=== PATIENT | male | born 1950 | race Caucasian/White ===

== ENCOUNTER 2017-01-25 14:48 | Emergency (ER) | payer MEDICARE, OTHER ==
--- NOTE | 2017-01-25 15:17 | EDM.PDOC ---
ED HPI HEADACHE COMPLAINT - General Chief Complaint: Headache Stated Complaint: HEADACHE Time Seen by Provider: 01/25/17 15:06 - History of Present Illness INITIAL COMMENTS - FREE TEXT/NARRATIVE: 66-year-old male presents emergency room with worsening headaches and aches and pains. Patient isn't certain when this actually started but it's probably been going on for couple of weeks. He has pain around his pelvis and into his thighs and in his lower back it seems to be getting worse. He has more noticeable pain around his shoulders and neck. As this would is worsening he is getting pain that comes up the back of his neck over the top of his head causing headaches. The headaches is what brings him in today. Patient does have frequent headaches he uses Fioricet at home but this is not working but these headaches. History for hypertension hyperlipidemia dyspepsia doubt and renal insufficiency - Related Data Allergies/ADRs: Allergies Allergy/AdvReac Type Severity Reaction Status Date / Time amlodipine besylate Allergy Anaphylactic Verified 01/25/17 15:03 [From Norvasc] Shock propoxyphene napsylate Allergy Rash Verified 01/25/17 15:03 [From Darvocet-N 100] acetaminophen [From Percocet] AdvReac Hallucinati Verified 01/25/17 15:03 ons cephalexin [Cephalexin] AdvReac Vomiting Verified 01/25/17 15:03 morphine AdvReac Nausea Verified 01/25/17 15:03 oxycodone [From Percocet] AdvReac Hallucinati Verified 01/25/17 15:03 ons Home Meds: Home Meds Allopurinol [Zyloprim] 150 mg PO BID 02/04/14 [History] Diazepam [Valium] 5 mg PO Q8H 02/04/14 [History] Famotidine [Pepcid] 20 mg PO BID PRN 02/04/14 [History] Omeprazole [Prilosec] 20 mg PO BID 02/04/14 [History] Potassium Chloride [Klor-Con 10] 20 meq PO DAILY 02/04/14 [History] Rosuvastatin [Crestor] 20 mg PO DAILY 02/04/14 [History] Valsartan [Diovan] 80 mg PO DAILY 02/04/14 [History] Calcium Carbonate [Tums] 4 tab PO DAILY 05/17/14 [History] Cholecalciferol (Vitamin D3) [Vitamin D3] 4,000 unit PO DAILY 09/01/14 [History] Pregabalin [Lyrica] 150 mg PO BID 09/06/14 [History] Methylcellulose [Citrucel] 1,000 mg PO BID 12/29/14 [History] Acetaminophen [Tylenol] 500 mg PO Q4H PRN 03/14/16 [History] Aspirin [Halfprin] 81 mg PO DAILY 03/14/16 [History] Hydrocortisone [Cortef] 5 mg PO PCDINNER 03/14/16 [History] Hydrocortisone [Cortef] 10 mg PO PCBREAKFAST 03/14/16 [History] PARoxetine HCl [Paxil] 10 mg PO DAILY 03/14/16 [History] Simethicone 125 mg PO BID 03/14/16 [History] Acetaminophen/Butalbital/Caff [Fioricet 325-50-40 MG] 1 tab PO Q6H 03/28/16 [ History] B1/B2/Niacin/B12/Protease [B-Complex with B-12 Tablet] 1 each PO DAILY 03/28/16 [History] fentaNYL [Duragesic] 1 patch TD Q48H 03/28/16 [History] traMADol [Ultram] 50 mg PO Q6H PRN 03/28/16 [History] Ferrous Sulfate 325 mg PO DAILY 09/10/16 [History] B2/Vit A,C & E/Lut/Zeaxanth/Mn [Icaps] 1 tab PO BID 01/25/17 [History] Butalbital/Aspirin/Caffeine [Fiorinal 50-325-40 MG] 1 tab PO Q6H 01/25/17 [ History] Lactobacillus Acidophilus [Acidophilus Lactobacilli] 1 tab PO DAILY 01/25/17 [ History] Past Medical History HEENT History: Reports: Hard of hearing, Impaired vision Other HEENT History: wears glasses, dentures Cardiovascular History: Reports: Arrhythmia, High cholesterol, Hypertension, Pacemaker, Other (see below) Other Cardiovascular History: sick sinus syndrome Respiratory History: Reports: SOB Gastrointestinal History: Reports: Bowel obstruction, Other (see below) Other Gastrointestinal History: chronic abd pain Other Genitourinary History: Urinary frequency Musculoskeletal History: Reports: Back pain, chronic, Fibromyalgia, Osteoarthritis, Other (see below) Other Musculoskeletal History: carpal tunnel syndrome bilaterally Neurological History: Reports: Headaches, chronic, Neuropathy, peripheral, Other (see below) Other Neuro History: dura-fluid leak with patch Psychiatric History: Reports: Anxiety, Depression, Other (see below) Other Psychiatric History: chronic pain syndrome, chronic fatigue Endocrine/Metabolic History: Reports: Other (see below) Other Endocrine/Metabolic History: adrenal insufficiancy Other Hematologic History: hypokalemia - Past Surgical History HEENT Surgical History: Reports: Naso-sinus surgery, Tonsillectomy Cardiovascular Surgical History: Reports: Pacer GI Surgical History: Reports: Colon, Colonoscopy, Colostomy, EGD, Other (see below) Other GI Surgeries/Procedures: colon resection w/ colostomy and reversal Endocrine Surgical History: Reports: Other (see below) Other Endocrine Surgeries/Procedures: nonfunctioning adrenal gland Neurological Surgical History: Reports: Vertebroplasty Other Neurological Surgeries/Procedures: Nerve block Musculoskeletal Surgical History: Reports: Carpal tunnel, Hip replacement, Other (see below) Other Musculoskeletal Surgeries/Procedures:: 14 back surgeries, ruptured discs, right total hip, right total knee, carpal tunnel procedures, trigger finger procedure Dermatological Surgical History: Reports: Skin graft Social & Family History - Family History Other HEENT Family History: Pt states daughter is blind in one eye. Cardiac: Reports: CAD, [place] Other Cardiac Family History: Pt states Father @ 53y/o. Oncologic: Reports: Bladder Other Oncologic Family History: Pt states daughter has rare bladder CA and also lost her site in one eye from it. - Tobacco Use Smoking Status *Q: Never Smoker Years of Tobacco use: 2 Used Tobacco, but Quit: No Month Tobacco Last Used: 44 yrs ago Second Hand Smoke Exposure: No - Caffeine Use Caffeine Use: Reports: None - Alcohol Use Days Per Week of Alcohol Use: 0 Number of Drinks Per Day: 0 Total Drinks Per Week: 0 - Recreational Drug Use Recreational Drug Use: No Drug Use in Last 12 Months: No - Living Situation & Occupation Living situation: Reports: with spouse ED ROS GENERAL - Review of Systems Review Of Systems: See Below Constitutional: Reports: weakness. Denies: fever, chills HEENT: Reports: Eye pain (He is photophobic with these headaches) Respiratory: Reports: No Symptoms Cardiovascular: Reports: No symptoms GI/Abdominal: Reports: No symptoms : Reports: no symptoms Musculoskeletal: Reports: shoulder pain, arm pain, leg pain Skin: Reports: no symptoms Neurological: Reports: Headache, Difficulty Walking (Early in the morning and when he's been resting the first few steps are difficult). Denies: Numbness, Paresthesia, Seizure, Syncope - Physical Exam Exam: See Below Exam Limited By: No limitations General Appearance: alert, no apparent distress Eye Exam: bilateral eye: EOMI, normal inspection, PERRL Ears: normal external exam, normal canal, hearing grossly normal, normal TMs Nose: normal inspection, normal mucosa, no blood Throat/Mouth: Normal inspection, Normal lips, Normal gums, Normal oropharynx, Normal voice, No airway compromise Head Exam: atraumatic, normocephalic Neck: lymphadenopathy (L), lymphadenopathy (R), other (He has paraspinous muscle tightness that extends over the top of the scalp this seems to be associated with his headaches this does not favor one side or the other). No: tender midline Respiratory/Chest: no respiratory distress, lungs clear, normal breath sounds Cardiovascular: regular rate, rhythm, no edema, no murmur GI/Abdominal: normal bowel sounds, soft, non tender Neuro Exam (Abbreviated): alert, oriented, other (Cranial nerves II through XII grossly intact all muscle groups the upper extremities recall appropriate bilaterally. Moving his upper extremities is limited limited by his recent carpal tunnel surgery and his neck and shoulder discomfort). No: inattentive, confused Back Exam: normal inspection, muscle spasm (Noticed mostly in the upper back. He has some vague discomfort in the lumbar musculature). No: vertebral tenderness Extremities: other (He has pain and is pop proximal thighs upper arms including the shoulders) Course - Vital Signs Last Recorded V/S: Last Vital Signs Temp 37.1 C 01/25/17 14:59 Pulse 74 01/25/17 14:59 Resp 18 01/25/17 14:59 BP 123/76 01/25/17 14:59 Pulse Ox 97 01/25/17 14:59 - Orders/Labs/Meds Orders: Active Orders 24 hr Category Date Time Status Hydrocortisone [Cortef] Med 01/26/17 18:38 Once 15 mg PO ONETIME ONE Sodium Chloride 0.9% [Normal Saline] 1,000 ml Med 01/25/17 18:30 Active IV ASDIRECTED Medication Orders Hydrocortisone (Cortef) 15 mg PO ONETIME ONE Stop: 01/26/17 18:39 Sodium Chloride (Normal Saline) 1,000 mls @ 150 mls/hr IV ASDIRECTED [facility] Labs: Laboratory Tests 01/25/17 01/25/17 01/25/17 Range/Units 16:40 17:15 17:15 WBC 10.84 H (4.23-9.07) K/mm3 RBC 4.76 (4.63-6.08) M/mm3 Hgb 14.3 (13.7-17.5) gm/L Hct 40.4 (40.1-51.0) % MCV 84.9 (79.0-92.2) fl MCH 30.0 (25.7-32.2) pg MCHC 35.4 (32.2-35.5) g/dl RDW Std Deviation 40.9 (35.1-43.9) fL Plt Count 128 L (163-337) K/mm3 MPV 9.5 (9.4-12.3) fl Neutrophils % (Manual) 84 H (40-60) % Band Neutrophils % 0 (0-10) % Lymphocytes % (Manual) 16 L (20-40) % Atypical Lymphs % 0 % Monocytes % (Manual) 0 L (2-10) % Eosinophils % (Manual) 0 L (0.8-7.0) % Basophils % (Manual) 0 L (0.2-1.2) Platelet Estimate Adequate Plt Morphology Comment Normal Anisocytosis 1+ sligh RBC Morph Comment Not Reportable ESR 6 (0-15) mm/hr Sodium 128 L (136-145) mEq/L Potassium 3.9 (3.5-5.1) mEq/L Chloride 93 L (98-107) mEq/L Carbon Dioxide 25 (21-32) mEq/L Anion Gap 13.9 (5-15) BUN 11 (7-18) mg/dL Creatinine 0.8 (0.7-1.3) mg/dL Est Cr Clr Drug Dosing TNP Estimated GFR (MDRD) > 60 (>60) mL/min BUN/Creatinine Ratio 13.8 L (14-18) Glucose 94 (80-115) mg/dL Calcium 8.9 (8.5-10.1) mg/dL Total Bilirubin 0.4 (0.2-1.0) mg/dL AST 22 (15-37) U/L ALT 27 (16-63) U/L Alkaline Phosphatase 101 (46-116) U/L C-Reactive Protein < 0.2 (<1.0) mg/dL Total Protein 6.7 (6.4-8.2) g/dl Albumin 4.1 (3.4-5.0) g/dl Globulin 2.6 gm/dL Albumin/Globulin Ratio 1.6 (1-2) Meds: Medications Generic Name Dose Route Start Last Admin Trade Name Freq PRN Reason Stop Dose Admin Hydrocortisone 15 mg 01/26/17 18:38 Cortef PO 01/26/17 18:39 ONETIME ONE Sodium Chloride 1,000 mls @ 150 mls/hr 01/25/17 18:30 Normal Saline IV ASDIRECTED [facility] Discontinued Medications Generic Name Dose Route Start Last Admin Trade Name Freq PRN Reason Stop Dose Admin Diphenhydramine HCl 50 mg 01/25/17 15:40 01/25/17 16:05 Benadryl IVPUSH 01/25/17 15:41 50 mg ONETIME ONE Administration Lactated Ringer's 1,000 mls @ 999 mls/hr 01/25/17 15:40 01/25/17 16:07 Ringers, Lactated IV 01/25/17 16:40 999 mls/hr .BOLUS ONE Administration Magnesium Sulfate/Dextrose 1 100 mls @ 100 mls/hr 01/25/17 17:16 01/25/17 18: 28 gm/ Premix IV 01/25/17 18:15 100 mls/hr ONETIME ONE Administration Ondansetron HCl 4 mg 01/25/17 15:40 01/25/17 16:05 Zofran IVPUSH 01/25/17 15:41 4 mg ONETIME ONE Administration - Re-Assessments/Exams Free Text/Narrative Re-Assessment/Exam: 01/25/17 17:10 Patient was started on fluids Benadryl Zofran and has not noticed a significant improvement in his pain his labs have not completely been drawn yet as he is the difficulty of blood from no lab results available at this time. Neuro exam fairly unremarkable. His exam is most consistent with a muscle tension type headache. Inflammatory markers checked with his generalize shoulder and pelvic pain. It is hard to discern if he has morning stiffness he does however he usually doesn't get out of bed until late morning. He often requires help to get up and do things in the stiffness does stick around for some time it is uncertain if it is 30 minutes or so. We'll try a gram of magnesium to see if this can help with some of the muscle spasm and see if this helps. He could have PMR will not treat until labs reviewed. His neurologist is concerned about a developing peripheral neuropathy. 01/25/17 17:47 Labs pending other than a CBC which shows a mild white count elevation no significant left shift he has 84% segs no bands 01/25/17 18:39 Patient was delayed and get his magnesium is uncertain if this is helping it patient is doing a little bit better labs coming in his potassium 3.9 sodium is 128 use the knee has an illness he doubles the dose of his Cortef he's taken his 2 doses already today we'll give an additional 10 mg now. Changed fluids to NS 01/25/17 19:28 Patient is getting his magnesium this was late to get hung because of other things happening in the department but is nearly completely and the patient thinks he can go home and get some rest and is doing better inflammatory markers negative Departure - Departure Time of Disposition: 19:30 Disposition: Home, Self-Care 01 Clinical Impression: Muscle tension headache, Adrenal insufficiency Forms: ED Department Discharge Additional Instructions: Return to emergency room if any questions or problems. Take 10 mg of Cortef as soon as you get home. Try and get some sleep to sleep off this headache. Double your usual dose of Cortef for the next 3 days. - My Orders Last 24 Hours: My Active Orders 01/25/17 18:30 Sodium Chloride 0.9% [Normal Saline] 1,000 ml IV ASDIRECTED 01/26/17 18:38 Hydrocortisone [Cortef] 15 mg PO ONETIME ONE - Assessment/Plan Last 24 Hours: My Active Orders 01/25/17 18:30 Sodium Chloride 0.9% [Normal Saline] 1,000 ml IV ASDIRECTED 01/26/17 18:38 Hydrocortisone [Cortef] 15 mg PO ONETIME ONE
[2017-01-25] MEDS ORDERED: Lactated Ringers 1,000 ML IV ONE (15:40)
[2017-01-25] MEDS ORDERED: Ondansetron 4 MG/2 ML SDV IVPUSH ONE (15:40)
[2017-01-25] MEDS ORDERED: diphenhydrAMINE 50 MG/ML SDV IVPUSH ONE (15:40)
[2017-01-25] MEDS ORDERED: Sodium Chloride 0.9% 1,000 ML IV SCH (18:30)
[2017-01-25 19:36] VITALS: BP 124/76
[2017-01-26] MEDS ORDERED: Hydrocortisone 20 MG Tab PO ONE (18:38)
== END 2017-01-25 19:43 | disposition home or self-care (01) ==
LOC: JD.ED 14:48
DX: G44.209 Tension-type headache, unspecified, not intractable (principal); E27.40 Unspecified adrenocortical insufficiency; Z88.8 Allergy status to other drugs, medicaments and biological substances; F41.9 Anxiety disorder, unspecified; F32.9 Major depressive disorder, single episode, unspecified; Z79.899 Other long term (current) drug therapy
CPT/HCPCS: 36415; 80053; 85025; 85652; 86140; 96361; 96365; 96375; 99284; J1200; J2405; J3475; J7120

== ENCOUNTER 2017-04-17 09:10 | Day surgery (SDC) | payer MEDICARE, OTHER ==
--- NOTE | 2017-04-17 06:39 | PCM.HP ---
Addendum entered and electronically signed by Dior Covarrubias NP 04/17/17 10:17: Please note when discussing risks/benefits of colonoscopy [..]. This should read risks/benefits of proctoscopy/sigmoidoscopy [...] Original Note: H&P History of Present Illness - General Date of Service: 04/17/17 Admit Problem/Dx: generalized abdominal pain - History of Present Illness Initial Comments - Free Text/Narative: The patient is a 66-year-old man who is well known to me. ~His primary care providers Dr. Christofer Macdonald, who referred him here for chronic abdominal pain. He was last evaluated in the clinic on 03/14/17. Has spoken with behavioral health on the phone and has a behavioral health visit on 05/14/17. He reports he was told he has a sinus infection after having a head CT for a neurology visit. He did see his primary care provider yesterday and was started on antibiotic ( Cipro) therapy. He has not started this yet. He is otherwise asymptomatic from a sinus infection. He also reports that he was told he will need to remain on chronic steroid therapy due to his adrenal insufficiency. He did finish the mag citrate at 4 this morning and has had watery dark brown stools that have subsequently returned later brown. He reports he still does always feel like he is constipated and has lower abdomen pain. He also reports that he does have history of chest pain when he is worrying. He denies any exertional chest pain. He did follow up with his provider in [place] recently for a pacemaker check after the pacemaker generator was replaced and they did discuss possibly doing a stress test at his follow-up appointment. He denies any chest pain presently. He reported he had some chest pain when he was anxious this morning considering his EGD colonoscopy, this is common for him. Again he does not have any exertional chest pain. 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 ~Due to the patient's extremely compromised nutritional status that time he did have a protective ileostomy which was reversed in September 2014. ~The patient has chronic pain related to fibromyalgia and many other conditions. He also has hx of extensive depressive symptoms, although denies any suicidal ideation. ~The patient states that he worries constantly about his own pain and~his own health and what could potentially be wrong with him as well as the health of his children and family. ~It effects~his sleep. His primary complaints at his last visit was related to his abdomen. ~He reported that his belly hurts. ~He will have bloating. ~He is only having 1-2 bowel movements per day on average, sometimes no bowel movements. ~The bowel movements are the consistency of mud. ~He does not have any fecal incontinence. ~Sometimes he feels like he is constipated and that more should come out. ~He is not sure that the mud-like consistency stools are normal. ~He thinks his stool should be firm. ~He also notes that he intermittently is having black stools, but he is taking iron. Performing a FIT~test, was discussed, however the patient really wants to have an endoscopic exam performed. ~He states he has had "a terrible year" with bilateral trigger finger release, carpal tunnel release, and subsequent neuropathy. ~He is currently taking a baby aspirin daily in addition to long-term Fioricet. ~He also takes Tums every day. ~He takes Pepcid 20 mg twice daily. ~He is 100 g Duragesic patch every 48 hours. ~ He is taking 325 mg of iron sulfate daily. ~He also has chronic adrenal insufficiency and is on Cortef 5 mg 2 tablets in the morning and 1 tablet in the afternoon. ~He takes 2 Citrucel tablets twice daily. ~He is also taking Prilosec 20 mg 1 tablet twice daily. ~Of note, the patient is on Paxil 10 mg 1 tablet daily and Valium 5 mg 1 tablet every 8 hours. For his pain he is also taking tramadol and Lyrica. - Related Data Allergies/Adverse Reactions: Allergies Allergy/AdvReac Type Severity Reaction Status Date / Time amlodipine besylate Allergy Anaphylactic Verified 04/17/17 10:11 [From Norvasc] Shock propoxyphene napsylate Allergy Rash Verified 04/17/17 10:11 [From Darvocet-N 100] acetaminophen [From Percocet] AdvReac Hallucinati Verified 04/17/17 10:11 ons cephalexin [Cephalexin] AdvReac Vomiting Verified 04/17/17 10:11 morphine AdvReac Nausea Verified 04/17/17 10:11 oxycodone [From Percocet] AdvReac Hallucinati Verified 04/17/17 10:11 ons Home Medications: Home Meds Allopurinol [Zyloprim] 150 mg PO BID 02/04/14 [History] Diazepam [Valium] 5 mg PO Q8H 02/04/14 [History] Famotidine [Pepcid] 20 mg PO BID PRN 02/04/14 [History] Omeprazole [Prilosec] 20 mg PO BID 02/04/14 [History] Potassium Chloride [Klor-Con 10] 20 meq PO DAILY 02/04/14 [History] Rosuvastatin [Crestor] 20 mg PO DAILY 02/04/14 [History] Valsartan [Diovan] 80 mg PO DAILY 02/04/14 [History] Calcium Carbonate [Tums] 4 tab PO DAILY 02/20/14 [History] Cholecalciferol (Vitamin D3) [Vitamin D3] 4,000 unit PO DAILY 09/01/14 [History] Pregabalin [Lyrica] 150 mg PO BID 09/06/14 [History] Methylcellulose [Citrucel] 1,000 mg PO BID 12/29/14 [History] Acetaminophen [Tylenol] 500 mg PO Q4H PRN 03/14/16 [History] Aspirin [Halfprin] 81 mg PO DAILY 03/14/16 [History] Hydrocortisone [Cortef] 5 mg PO PCDINNER 03/14/16 [History] Hydrocortisone [Cortef] 10 mg PO PCBREAKFAST 03/14/16 [History] PARoxetine HCl [Paxil] 10 mg PO DAILY 03/14/16 [History] Simethicone 125 mg PO BID 03/14/16 [History] Acetaminophen/Butalbital/Caff [Fioricet 325-50-40 MG] 1 tab PO Q6H 03/28/16 [ History] B1/B2/Niacin/B12/Protease [B-Complex with B-12 Tablet] 1 each PO DAILY 03/28/16 [History] fentaNYL [Duragesic] 1 patch TD Q48H 03/28/16 [History] traMADol [Ultram] 50 mg PO Q6H PRN 03/28/16 [History] Ferrous Sulfate 325 mg PO DAILY 09/10/16 [History] B2/Vit A,C & E/Lut/Zeaxanth/Mn [Icaps] 1 tab PO BID 01/25/17 [History] Lactobacillus Acidophilus [Acidophilus Lactobacilli] 1 tab PO DAILY 01/25/17 [ History] Past Medical History HEENT History: Reports: Hard of Hearing, Impaired Vision Other HEENT History: wears glasses, dentures Cardiovascular History: Reports: Arrhythmia, High Cholesterol, Hypertension, Pacemaker, Other (See Below) Other Cardiovascular History: sick sinus syndrome Respiratory History: Reports: SOB Gastrointestinal History: Reports: Bowel Obstruction, Other (See Below) Other Gastrointestinal History: chronic abd pain Other Genitourinary History: Urinary frequency DIRECTOR DESIGN History: Reports: None Musculoskeletal History: Reports: Back Pain, Chronic, Fibromyalgia, Osteoarthritis, Other (See Below) Other Musculoskeletal History: carpal tunnel syndrome bilaterally Neurological History: Reports: Headaches, Chronic, Neuropathy, Peripheral, Other (See Below) Other Neuro History: dura-fluid leak with patch Psychiatric History: Reports: Anxiety, Depression, Other (See Below) Other Psychiatric History: chronic pain syndrome, chronic fatigue Endocrine/Metabolic History: Reports: Other (See Below) Other Endocrine/Metabolic History: adrenal insufficiancy Other Hematologic History: hypokalemia Immunologic History: Reports: None Oncologic (Cancer) History: Reports: None - Past Surgical History Head Surgeries/Procedures: HEENT Surgical History: Reports: Naso-Sinus Surgery, Tonsillectomy Cardiovascular Surgical History: Reports: Pacer GI Surgical History: Reports: Colon, Colonoscopy, Colostomy, EGD, Other (See Below) Other GI Surgeries/Procedures: colon resection w/ colostomy and reversal Endocrine Surgical History: Reports: Other (See Below) Other Endocrine Surgeries/Procedures: nonfunctioning adrenal gland Neurological Surgical History: Reports: Vertebroplasty Other Neurological Surgeries/Procedures: Nerve block Musculoskeletal Surgical History: Reports: Carpal Tunnel, Hip Replacement, Other (See Below) Other Musculoskeletal Surgeries/Procedures:: 14 back surgeries, ruptured discs, right total hip, right total knee, carpal tunnel procedures, trigger finger procedure Dermatological Surgical History: Reports: Skin Graft Social & Family History - Family History Other HEENT Family History: Pt states daughter is blind in one eye. Cardiac: Reports: CAD, [place] Other Cardiac Family History: Pt states Father @ 53y/o. Oncologic: Reports: Bladder Other Oncologic Family History: Pt states daughter has rare bladder CA and also lost her site in one eye from it. - Tobacco Use Smoking Status *Q: Never Smoker Years of Tobacco use: 2 Used Tobacco, but Quit: No Month Tobacco Last Used: 44 yrs ago Second Hand Smoke Exposure: No - Caffeine Use Caffeine Use: Reports: None - Alcohol Use Days Per Week of Alcohol Use: 0 Number of Drinks Per Day: 0 Total Drinks Per Week: 0 - Recreational Drug Use Recreational Drug Use: No Drug Use in Last 12 Months: No - Living Situation & Occupation Living situation: Reports: with Spouse H&P Review of Systems - Review of Systems: Review Of Systems: See Below Free Text/Narrative: Denies bleeding or clotting disorders. No history of anesthesia complications or family history of anesthesia complications. All other systems reviewed and were negative except as per history of present illness. General: Reports: No Symptoms. Denies: Fever, Chills, Night Sweats, Diaphoresis HEENT: Reports: No Symptoms Pulmonary: Reports: No Symptoms. Denies: Shortness of Breath, Wheezing, Cough Cardiovascular: Denies: No Symptoms, Chest Pain, Palpitations, Dyspnea on Exertion, Edema Gastrointestinal: Reports: Abdominal Pain (lower) Genitourinary: Reports: No Symptoms Musculoskeletal: Reports: Joint Pain, Muscle Pain Skin: Reports: No Symptoms Psychiatric: Reports: No Symptoms, Anxiety Neurological: Reports: No Symptoms Hematologic/Lymphatic: Reports: No Symptoms Immunologic: Reports: No Symptoms Review of Systems Comment:: Results for JESSIE DAVE ( ) as of 04/17/2017 10:07 Ref. Range 04/15/2017 12:26 WBC Latest Ref Range: 4.0 - 11.0 K/uL 6.2 RBC Latest Ref Range: 4.40 - 5.80 M/uL 4.69 Hemoglobin Latest Ref Range: 13.5 - 17.5 g/dL 14.5 Hematocrit Latest Ref Range: 40.0 - 50.0 % 42.8 MCV Latest Ref Range: 80.0 - 98.0 fL 91.3 MCH Latest Ref Range: 25.5 - 34.0 pg 30.9 MCHC Latest Ref Range: 31.5 - 36.5 g/dL 33.9 RDW-CV Latest Ref Range: 11.5 - 15.5 % 14.0 RDW-SD Latest Ref Range: 35.5 - 50.0 fl 46.1 Platelet Count Latest Ref Range: 140 - 400 K/uL 168 MPV Latest Ref Range: 8.5 - 12.0 fL 9.7 Seg Neut Absolute Latest Ref Range: 1.8 - 8.0 K/uL 4.3 Lymphocytes Absolute Latest Ref Range: 0.8 - 4.1 K/uL 1.3 Monocytes Absolute Latest Ref Range: 0.0 - 1.0 K/uL 0.5 Eosinophils Absolute Latest Ref Range: 0.0 - 0.7 K/uL 0.1 Basophil Absolute Latest Ref Range: 0.0 - 0.2 K/uL 0.0 Neutrophils Percent Latest Units: % 69.0 Lymphocytes Percent Latest Units: % 21.1 Monocytes Percent Latest Units: % 7.2 Eosinophils Percent Latest Units: % 2.1 Basophil Percent Latest Units: % 0.6 Glucose Latest Ref Range: 70 - 99 mg/dL 89 Sodium Latest Ref Range: 137 - 145 meq/L 132 (L) Potassium Latest Ref Range: 3.5 - 5.1 meq/L 4.3 Chloride Latest Ref Range: 98 - 107 meq/L 93 (L) CO2 Latest Ref Range: 22 - 30 meq/L 27 Anion Gap with K Latest Ref Range: 10 - 20 meq/L 16 BUN Latest Ref Range: 9 - 20 mg/dL 5 (L) Creatinine Latest Ref Range: 0.80 - 1.50 mg/dL 0.70 (L) BUN/Creatinine Ratio Unknown 7.1 Calcium Latest Ref Range: 8.4 - 10.2 mg/dL 8.9 Uric Acid Latest Ref Range: 3.5 - 8.5 mg/dL 2.5 (L) eGFR Latest Ref Range: >=60 mL/min/1.73m2 >90 eGFR Non- Latest Ref Range: >=60 mL/min/1.73m2 >90 Exam - Exam Exam: See Below - Vital Signs Weight: 79.379 kg - Exam Quality Assessment: Supplemental Oxygen General: Alert, Oriented HEENT: Conjunctiva Clear. No: Scleral Icterus Lungs: Clear to Auscultation, Normal Respiratory Effort Cardiovascular: Regular Rate, Regular Rhythm, Normal S1, Normal S2. No: Systolic Murmur, Diastolic Murmur Abdomen: Soft, Tenderness (lower quadrants, slight ) Back Exam: Normal Inspection Extremities: Normal Inspection. No: Edema, Increased Warmth Skin: Warm, Dry, Intact Neuro Extensive - Mental Status: Alert, Oriented x3, Normal Mood/Affect, Normal Cognition, Memory Intact Psychiatric: Alert, Normal Affect, Normal Mood *Q Meaningful Use (ADM) - VTE *Q VTE Criteria *Q: - Stroke *Q Stroke Criteria *Q: - AMI *Q AMI Criteria *Q: - Problem List (1) Abdominal pain SNOMED Code(s): 30998842 ICD Code: R10.9 - UNSPECIFIED ABDOMINAL PAIN Status: Acute Current Visit : No Qualifiers: Abdominal location: generalized Qualified Code(s): R10.84 - Generalized abdominal pain Problem List Initiated/Reviewed/Updated: Yes Orders Last 24hrs: Active Orders 24 hr Category Date Time Status Peripheral IV Care [RC] . DIRECTED Care 04/17/17 07:00 Active Verify Patient Consent Obtain [RC] ASDIRECTED Care 04/17/17 07:00 Active Lactated Ringers [Ringers, Lactated] 1,000 ml Med 04/17/17 07:00 Active IV ASDIRECTED Lidocaine 1%/Sod Bicarbonate [Buffered Lidocaine 1% in Med 04/17/17 07:00 Active NS 8.4%] 0.25 ml .XX ONETIME PRN Sodium Chloride 0.9% [Saline Flush] Med 04/17/17 07:00 Active 10 ml FLUSH ASDIRECTED PRN Medication Administration Instruction [OM.PC] Routine Oth 04/17/17 07:00 Ordered Peripheral IV Insertion Adult [OM.PC] Routine Oth 04/17/17 07:00 Ordered Medication Orders Lactated Ringer's (Ringers, Lactated) 1,000 mls @ 125 mls/hr IV ASDIRECTED LUCIAN Stop: 04/17/17 23:00 Lidocaine/Sodium Bicarbonate (Buffered Lidocaine 1% In Ns 8.4%) 0.25 ml .XX ONETIME PRN PRN Reason: Prior to IV Start Stop: 04/17/17 18:00 Sodium Chloride (Saline Flush) 10 ml FLUSH ASDIRECTED PRN PRN Reason: Keep Vein Open Stop: 04/17/17 18:00 Assessment/Plan Comment:: 66 year old male with generalized abdominal pain, need for diagnostic EGD and diagnostic proctoscopy/sigmoidoscopy We discussed performing a diagnostic EGD and diagnostic proctoscopy/ sigmoidoscopy . We discussed the risks and benefits of colonoscopy and EGD including pain, bleeding, need for additional procedures, damage to surrounding structures including colonic, esophageal or small bowel perforation risk of less than 1%, and risks of anesthesia. Informed consent was obtained. This patient was evaluated with Dr. Kala Ashley, plan formulated by Dr. Kala Covarrubias, BUTTON TUFTING MACHINE OPERATOR-C scribing for Dr. Kala Ashley
[~2017-04-17 09:10] MED LIST: Lactated Ringers 1,000 ML IV SCH; Lidocaine 1%/Sod Bicarbonate in NS 8.4% 1 ML Syringe PRN; Sodium Chloride 0.9% 10 ML Syringe FLUSH PRN
[2017-04-17] MEDS ORDERED: Lidocaine 1% 4 ML ONE (10:02)
[2017-04-17] MEDS ORDERED: Propofol 200 MG/20 ML SDV ONE (10:02)
[2017-04-17] MEDS ORDERED: fentaNYL 100 MCG/2 ML SDV ONE (10:03)
--- NOTE | 2017-04-17 10:25 | PCM.PREANE ---
Preanesthetic Assessment - Procedure Proposed Procedure: Diagnostic EGD and Diagnostic Sigmoidoscopy - Anesthesia/Transfusion/Family Hx Anesthesia History: Prior Anesthesia Without Reaction Transfusion History: No Prior Transfusion(s) Type of Transfusion Reactions: Reports: Unknown - Review of Systems General: Weakness (bilateral hands mild weakness), Fatigue (in general) Pulmonary: No Symptoms Cardiovascular: No Symptoms Gastrointestinal: Nausea Neurological: Syncope (episodes of near syncope before dx of adrenal insufficiency), Tingling (bilateral hands and feet) Other: Reports: Easy Bruising, Depression - Physical Assessment NPO Status Date: 04/16/17 NPO Status Time: 00:00 O2 Sat by Pulse Oximetry: 96 Respiratory Rate: 16 Vital Signs: Last Vital Signs Temp 36.4 C 04/17/17 09:25 Pulse 73 04/17/17 09:25 Resp 16 04/17/17 09:25 BP 129/77 04/17/17 09:25 Pulse Ox 96 04/17/17 09:25 Height: 1.75 m Weight: 79.379 kg ASA Class: 3 Mental Status: Alert & Oriented x3 Airway Class: Mallampati = 1 Dentition: Reports: Edentulous Thyro-Mental Finger Breadths: 3 Mouth Opening Finger Breadths: 2 ROM/Head Extension: Full Lungs: Clear to auscultation, Normal respiratory effort Cardiovascular: Regular Rate, Regular Rhythm, No Murmurs - Allergies Allergies/Adverse Reactions: Allergies Allergy/AdvReac Type Severity Reaction Status Date / Time amlodipine besylate Allergy Anaphylactic Verified 04/17/17 10:11 [From Norvasc] Shock propoxyphene napsylate Allergy Rash Verified 04/17/17 10:11 [From Darvocet-N 100] acetaminophen [From Percocet] AdvReac Hallucinati Verified 04/17/17 10:11 ons cephalexin [Cephalexin] AdvReac Vomiting Verified 04/17/17 10:11 morphine AdvReac Nausea Verified 04/17/17 10:11 oxycodone [From Percocet] AdvReac Hallucinati Verified 04/17/17 10:11 ons - Acknowledgements Anesthesia Type Planned: MAC Pt an Appropriate Candidate for the Planned Anesthesia: Yes Alternatives and Risks of Anesthesia Discussed w Pt/Guardian: Yes Pt/Guardian Understands and Agrees with Anesthesia Plan: Yes PreAnesthesia Questionnaire HEENT History: Reports: Hard of Hearing, Impaired Vision Other HEENT History: wears glasses, dentures Cardiovascular History: Reports: Arrhythmia, High Cholesterol, Hypertension, Pacemaker, Other (See Below) Other Cardiovascular History: sick sinus syndrome Respiratory History: Reports: SOB Gastrointestinal History: Reports: Bowel Obstruction, Other (See Below) Other Gastrointestinal History: chronic abd pain Other Genitourinary History: Urinary frequency CIVIL LAWYER History: Reports: None Musculoskeletal History: Reports: Back Pain, Chronic, Fibromyalgia, Osteoarthritis, Other (See Below) Other Musculoskeletal History: carpal tunnel syndrome bilaterally Neurological History: Reports: Headaches, Chronic, Neuropathy, Peripheral, Other (See Below) Other Neuro History: dura-fluid leak with patch Psychiatric History: Reports: Anxiety, Depression, Other (See Below) Other Psychiatric History: chronic pain syndrome, chronic fatigue Endocrine/Metabolic History: Reports: Other (See Below) Other Endocrine/Metabolic History: adrenal insufficiancy Other Hematologic History: hypokalemia Immunologic History: Reports: None Oncologic (Cancer) History: Reports: None - Past Surgical History Head Surgeries/Procedures: HEENT Surgical History: Reports: Naso-Sinus Surgery, Tonsillectomy Cardiovascular Surgical History: Reports: Pacer GI Surgical History: Reports: Colon, Colonoscopy, Colostomy, EGD, Other (See Below) Other GI Surgeries/Procedures: colon resection w/ colostomy and reversal Endocrine Surgical History: Reports: Other (See Below) Other Endocrine Surgeries/Procedures: nonfunctioning adrenal gland Neurological Surgical History: Reports: Vertebroplasty Other Neurological Surgeries/Procedures: Nerve block Musculoskeletal Surgical History: Reports: Carpal Tunnel, Hip Replacement, Other (See Below) Other Musculoskeletal Surgeries/Procedures:: 14 back surgeries, ruptured discs, right total hip, right total knee, carpal tunnel procedures, trigger finger procedure Dermatological Surgical History: Reports: Skin Graft - SUBSTANCE USE Smoking Status *Q: Former Smoker (smoked occasionally for 3 yrs. Quit 1967) Tobacco Use Within Last Twelve Months: No Second Hand Smoke Exposure: No Days Per Week of Alcohol Use: 0 Number of Drinks Per Day: 0 Total Drinks Per Week: 0 Recreational Drug Use History: No - HOME MEDS Home Medications: Home Meds Allopurinol [Zyloprim] 150 mg PO BID 02/04/14 [History] Diazepam [Valium] 5 mg PO Q8H 02/04/14 [History] Famotidine [Pepcid] 20 mg PO BID PRN 02/04/14 [History] Omeprazole [Prilosec] 20 mg PO BID 02/04/14 [History] Potassium Chloride [Klor-Con 10] 20 meq PO DAILY 02/04/14 [History] Rosuvastatin [Crestor] 20 mg PO DAILY 02/04/14 [History] Valsartan [Diovan] 80 mg PO DAILY 02/04/14 [History] Calcium Carbonate [Tums] 4 tab PO DAILY 02/20/14 [History] Cholecalciferol (Vitamin D3) [Vitamin D3] 4,000 unit PO DAILY 09/01/14 [History] Pregabalin [Lyrica] 150 mg PO BID 09/06/14 [History] Methylcellulose [Citrucel] 1,000 mg PO BID 12/29/14 [History] Acetaminophen [Tylenol] 500 mg PO Q4H PRN 03/14/16 [History] Aspirin [Halfprin] 81 mg PO DAILY 03/14/16 [History] Hydrocortisone [Cortef] 5 mg PO PCDINNER 03/14/16 [History] Hydrocortisone [Cortef] 10 mg PO PCBREAKFAST 03/14/16 [History] PARoxetine HCl [Paxil] 10 mg PO DAILY 03/14/16 [History] Simethicone 125 mg PO BID 03/14/16 [History] Acetaminophen/Butalbital/Caff [Fioricet 325-50-40 MG] 1 tab PO Q6H 03/28/16 [ History] B1/B2/Niacin/B12/Protease [B-Complex with B-12 Tablet] 1 each PO DAILY 03/28/16 [History] fentaNYL [Duragesic] 1 patch TD Q48H 03/28/16 [History] traMADol [Ultram] 50 mg PO Q6H PRN 03/28/16 [History] Ferrous Sulfate 325 mg PO DAILY 09/10/16 [History] B2/Vit A,C & E/Lut/Zeaxanth/Mn [Icaps] 1 tab PO BID 01/25/17 [History] Lactobacillus Acidophilus [Acidophilus Lactobacilli] 1 tab PO DAILY 01/25/17 [ History] - CURRENT (IN HOUSE) MEDS Current Meds: Current Medications Lactated Ringer's (Ringers, Lactated) 1,000 mls @ 125 mls/hr IV ASDIRECTED LUCIAN Stop: 04/17/17 23:00 Lidocaine/Sodium Bicarbonate (Buffered Lidocaine 1% In Ns 8.4%) 0.25 ml .XX ONETIME PRN PRN Reason: Prior to IV Start Stop: 04/17/17 18:00 Sodium Chloride (Saline Flush) 10 ml FLUSH ASDIRECTED PRN PRN Reason: Keep Vein Open Stop: 04/17/17 18:00 Discontinued Medications Fentanyl (Sublimaze) Confirm Administered Dose 100 mcg .ROUTE .STK-MED ONE Stop: 04/17/17 10:04 Lidocaine HCl (Xylocaine-Mpf 1%) Confirm Administered Dose 4 mls @ as directed .ROUTE .STK-MED ONE Stop: 04/17/17 10:03 Propofol (Diprivan 20 Ml) Confirm Administered Dose 200 mg .ROUTE .STK-MED ONE Stop: 04/17/17 10:03
[2017-04-17] MEDS ORDERED: Hydrocortisone Sodium Succinate 100 MG/2 ML SDV ONE (10:51)
[2017-04-17] MEDS ORDERED: Lactated Ringers 1,000 ML ONE (11:19)
--- NOTE | 2017-04-17 11:30 | PCM48HPAN ---
Post Anesthesia Note - EVALUATION WITHIN 48HRS OF ANESTHETIC Vital Signs in Normal Range: Yes Patient Participated in Evaluation: Yes Respiratory Function Stable: Yes Airway Patent: Yes Cardiovascular Function Stable: Yes Hydration Status Stable: Yes Pain Control Satisfactory: Yes Nausea and Vomiting Control Satisfactory: Yes Mental Status Recovered: Yes
--- NOTE | 2017-04-17 11:43 | PCM.OPNOTE ---
- General Post-Op/Procedure Note Date of Surgery/Procedure: 04/17/17 Operative Procedure(s): 1. Diagnostic EGD with cold forceps biopsy. 2. Flexible proctoscopy with cold forceps biopsy Pre Op Diagnosis: Chronic abdominal pain Post-Op Diagnosis: Gastritis, Mild inflammation of small bowel near the anastomosis, prostatic enlargement [place] [facility] [place]geon: Kala Ashley Anesthesia Provider: Yvette Benitez Pathology: 1. Small bowel biopsy 2. Antral biopsy 3. Distal esophageal biopsy 4. Small bowel near the rectal anastomosis biopsy Fluid Replacement, Intraop: 300 (mL crystalloid ) EBL in mLs: 1 Complications: None Condition: Good Free Text/Narrative:: INDICATION FOR PROCEDURE: The patient is a 66-year-old man who was referred to me by Dr. Christofer Macdonald for evaluation for chronic abdominal pain. I previously performed a laparoscopic subtotal colectomy several years ago for severe chronic constipation and colonic dysmotility. The patient still has some chronic abdominal pain, although no longer constipated. Performing a diagnostic sigmoidoscopy and EGD and the associated risks of the procedures had been discussed with the patient. The patient found these risks acceptable and agreed to proceed. DESCRIPTION OF PROCEDURE: The patient was taken to the operating room and placed in the left lateral decubitus position. After induction of adequate sedation, a bite block was placed. A standard Olympus gastroscope was inserted into the oropharynx and guided down the esophagus without difficulty. The gastroesophageal junction was appreciated at 39 cm from the teeth. There was no evidence of stricture or esophageal ulcerations. The scope was advanced into the stomach, and there was mild diffuse gastritis. The scope was passed into the proximal jejunum and the duodenum which were unremarkable. There were no petechiae or ulcerations. The proximal jejunum was grossly normal in appearance. Multiple cold forceps biopsies were obtained of the proximal jejunum and duodenum. The scope was withdrawn into the antrum, and additional cold forceps biopsies were obtained. The remainder of the gastric body was examined, and there were no additional abnormalities. The scope was retroflexed , and there was no evidence of hiatal hernia. The scope was straightened and withdrawn to the GE junction. Additional cold forceps biopsies were obtained of the distal esophagus. The scope was withdrawn through the remainder of the esophagus and no further abnormalities were noted. The posterior oropharynx was grossly normal in appearance. The scope was fully withdrawn and attention was then turned to the colonoscopy. A digital rectal exam was performed which demonstrated prostatic enlargement. There was no prostatic nodularity. An Olympus gastroscope was inserted into the rectum and guided under direct visualization to surgical anastomosis at 20 cm from the anal verge. The ileum was examined for about 20 cm. Very near the anastomosis there was a small amount of inflammation of the ileum, photographs were obtained and the area was biopsied with cold forceps. The anastomosis itself was widely patent with no tortuosity or stricture. The scope was then slowly withdrawn through the rectum. The quality of the prep was fair. There was no evidence of angiodysplasias, diverticulum or mass lesions. The scope was withdrawn into the rectum and retroflexed. There was minimal prominence of the patient's internal hemorrhoids. The scope was straightened, the colon was desufflated,and the scope was withdrawn. The patient was awakened from sedation and transferred to the recovery room in stable condition having tolerated the procedure well. POSTOPERATIVE PLAN: I discussed with the patient and his my intraoperative findings and recommendations. The patient will follow up in approximately 2 weeks with my nurse practitioner, DIMA Haley, to discuss pathology and how their symptoms are progressing. The patient may continue his home Pepcid and Prilosec for the time being. I have asked the patient to follow a GERD\ gastritis diet. The patient is to call with any worsening of symptoms or questions prior to the appointment.
[2017-04-17 12:13] VITALS: BP 137/84
== END 2017-04-17 12:01 | disposition home or self-care (01) ==
LOC: JD.SDS 09:10
PROVIDERS: ATTEND Surgery
DX: K29.70 Gastritis, unspecified, without bleeding (principal); K52.9 Noninfective gastroenteritis and colitis, unspecified; N40.0 Benign prostatic hyperplasia without lower urinary tract symptoms; I10 Essential (primary) hypertension; E78.00 Pure hypercholesterolemia, unspecified; I49.9 Cardiac arrhythmia, unspecified; Z95.0 Presence of cardiac pacemaker; G89.4 Chronic pain syndrome; M19.90 Unspecified osteoarthritis, unspecified site; M79.7 Fibromyalgia; F32.9 Major depressive disorder, single episode, unspecified; F41.9 Anxiety disorder, unspecified; G62.9 Polyneuropathy, unspecified; Z79.82 Long term (current) use of aspirin; Z79.899 Other long term (current) drug therapy; Z87.891 Personal history of nicotine dependence
CPT/HCPCS: 43239; 45331; 88305; J1720; J3010; J7120; J2704

== ENCOUNTER 2017-06-05 16:52 | Emergency (ER) | payer MEDICARE, OTHER ==
--- NOTE | 2017-06-05 17:18 | EDM.PDOC ---
ED HPI GENERAL MEDICAL PROBLEM - General Chief Complaint: General Stated Complaint: ALL OVER BODY PAIN Time Seen by Provider: 06/05/17 17:34 Source of Information: Reports: Patient History Limitations: Reports: No Limitations - History of Present Illness INITIAL COMMENTS - FREE TEXT/NARRATIVE: 66-year-old male presents to the ED with severe generalized pain syndrome. He has a chronic throbbing headache and every bone and brought in his body is hurting. He has chronic fibromyalgia syndrome which is worsened as of late. Disrupted sleep pattern with inability to sleep due to pain for several nights in a row. Hasn't eaten much for the last 2 days. No nausea vomiting no diarrhea. He has adrenal insufficiency. Has a history of getting dizzy easily and falling. did see a parking line painter Dr. Cuadra in [facility] [place] last week and had what sounds like an intrathecal injection through a catheter placed up through the nuchal cleft through the sacrum. He states it seemed to help for sure. Time but his headache seems to be worse since the procedure. This was done under C-arm fluoroscopy. He is currently on fentanyl patch 100 g per hour and has been for a long time. No recent changes to any of her other his other medications as it really is no easy answers for management of his chronic pain syndrome. Onset: Gradual ( Much worse over the last week to 10 days.) Duration: Chronic, Getting Worse Location: Reports: Generalized Quality: Reports: Ache, Burning, Pressure, Throbbing Severity: Severe (currently pain is 9 or 10 out of 10.) Improves with: Reports: None Worsens with: Reports: Movement Context: Reports: Other ( Chronic pain syndrome labeled as fibromyalgia syndrome.). 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 (see below) ( He is on lots of different medications chronically for his illnesses.) Headache Pain Score (Numeric/FACES): 9 Generalized Pain Score (Numeric/FACES): 8 - Related Data Allergies Allergy/AdvReac Type Severity Reaction Status Date / Time amlodipine besylate Allergy Anaphylactic Verified 06/05/17 17:12 [From Norvasc] Shock propoxyphene napsylate Allergy Rash Verified 06/05/17 17:12 [From Darvocet-N 100] acetaminophen [From Percocet] AdvReac Hallucinati Verified 06/05/17 17:12 ons cephalexin [Cephalexin] AdvReac Vomiting Verified 06/05/17 17:12 morphine AdvReac Nausea Verified 06/05/17 17:12 oxycodone [From Percocet] AdvReac Hallucinati Verified 06/05/17 17:12 ons Home Meds: Home Meds Allopurinol [Zyloprim] 150 mg PO BID 02/04/14 [History] Diazepam [Valium] 5 mg PO Q8H 02/04/14 [History] Famotidine [Pepcid] 20 mg PO BID PRN 02/04/14 [History] Omeprazole [Prilosec] 20 mg PO BID 02/04/14 [History] Potassium Chloride [Klor-Con 10] 20 meq PO DAILY 02/04/14 [History] Rosuvastatin [Crestor] 20 mg PO DAILY 02/04/14 [History] Valsartan [Diovan] 80 mg PO DAILY 02/04/14 [History] Calcium Carbonate [Tums] 4 tab PO DAILY 02/20/14 [History] Cholecalciferol (Vitamin D3) [Vitamin D3] 4,000 unit PO DAILY 09/01/14 [History] Pregabalin [Lyrica] 150 mg PO BID 09/06/14 [History] Methylcellulose [Citrucel] 1,000 mg PO BID 12/29/14 [History] Acetaminophen [Tylenol] 500 mg PO Q4H PRN 03/14/16 [History] Aspirin [Halfprin] 81 mg PO DAILY 03/14/16 [History] Hydrocortisone [Cortef] 5 mg PO PCDINNER 03/14/16 [History] Hydrocortisone [Cortef] 10 mg PO PCBREAKFAST 03/14/16 [History] PARoxetine HCl [Paxil] 10 mg PO DAILY 03/14/16 [History] Simethicone 125 mg PO BID 03/14/16 [History] Acetaminophen/Butalbital/Caff [Fioricet 325-50-40 MG] 1 tab PO Q6H 03/28/16 [ History] B1/B2/Niacin/B12/Protease [B-Complex with B-12 Tablet] 1 each PO DAILY 03/28/16 [History] fentaNYL [Duragesic] 1 patch TD Q48H 03/28/16 [History] traMADol [Ultram] 50 mg PO Q6H PRN 03/28/16 [History] Ferrous Sulfate 325 mg PO DAILY 09/10/16 [History] B2/Vit A,C & E/Lut/Zeaxanth/Mn [Icaps] 1 tab PO BID 01/25/17 [History] Lactobacillus Acidophilus [Acidophilus Lactobacilli] 1 tab PO DAILY 01/25/17 [ History] Past Medical History HEENT History: Reports: Hard of Hearing, Impaired Vision Other HEENT History: wears glasses, dentures Cardiovascular History: Reports: Arrhythmia, High Cholesterol, Hypertension, Pacemaker, Other (See Below) Other Cardiovascular History: sick sinus syndrome Respiratory History: Reports: SOB Gastrointestinal History: Reports: Bowel Obstruction, Other (See Below) Other Gastrointestinal History: chronic abd pain Other Genitourinary History: Urinary frequency PRESSURE STEAMER TENDER History: Reports: None Musculoskeletal History: Reports: Back Pain, Chronic, Fibromyalgia, Osteoarthritis, Other (See Below) Other Musculoskeletal History: carpal tunnel syndrome bilaterally Neurological History: Reports: Headaches, Chronic, Neuropathy, Peripheral, Other (See Below) Other Neuro History: dura-fluid leak with patch Psychiatric History: Reports: Anxiety, Depression, Other (See Below) Other Psychiatric History: chronic pain syndrome, chronic fatigue Endocrine/Metabolic History: Reports: Other (See Below) Other Endocrine/Metabolic History: adrenal insufficiancy Other Hematologic History: hypokalemia Immunologic History: Reports: None Oncologic (Cancer) History: Reports: None - Past Surgical History Head Surgeries/Procedures: HEENT Surgical History: Reports: Naso-Sinus Surgery, Tonsillectomy Cardiovascular Surgical History: Reports: Pacer GI Surgical History: Reports: Colon, Colonoscopy, Colostomy, EGD, Other (See Below) Other GI Surgeries/Procedures: colon resection w/ colostomy and reversal Endocrine Surgical History: Reports: Other (See Below) Other Endocrine Surgeries/Procedures: nonfunctioning adrenal gland Neurological Surgical History: Reports: Vertebroplasty Other Neurological Surgeries/Procedures: Nerve block Musculoskeletal Surgical History: Reports: Carpal Tunnel, Hip Replacement, Other (See Below) Other Musculoskeletal Surgeries/Procedures:: 14 back surgeries, ruptured discs, right total hip, right total knee, carpal tunnel procedures, trigger finger procedure Dermatological Surgical History: Reports: Skin Graft Social & Family History - Family History Other HEENT Family History: Pt states daughter is blind in one eye. Cardiac: Reports: CAD, [place] Other Cardiac Family History: Pt states Father @ 53y/o. Oncologic: Reports: Bladder Other Oncologic Family History: Pt states daughter has rare bladder CA and also lost her site in one eye from it. - Tobacco Use Smoking Status *Q: Former Smoker (smoked occasionally for 3 yrs. Quit 1967) Years of Tobacco use: 2 Used Tobacco, but Quit: No Month Tobacco Last Used: 44 yrs ago Second Hand Smoke Exposure: No - Caffeine Use Caffeine Use: Reports: None - Alcohol Use Days Per Week of Alcohol Use: 0 Number of Drinks Per Day: 0 Total Drinks Per Week: 0 - Recreational Drug Use Recreational Drug Use: No Drug Use in Last 12 Months: No - Living Situation & Occupation Living situation: Reports: with Spouse ED ROS GENERAL - Review of Systems Review Of Systems: See Below Constitutional: Reports: Malaise, Weakness, Fatigue, Decreased Appetite, Weight Loss. Denies: Fever, Chills HEENT: Reports: Glasses Respiratory: Reports: No Symptoms Cardiovascular: Reports: No Symptoms Endocrine: Reports: Fatigue GI/Abdominal: Reports: Decreased Appetite. Denies: Constipation, Diarrhea : Reports: No Symptoms Musculoskeletal: Reports: Neck Pain, Shoulder Pain, Back Pain ( or joint pain), Joint Pain, Muscle Pain ( Severe generalized muscle pain), Other Skin: Reports: No Symptoms ( has fibromyalgia syndrome.) Neurological: Reports: Headache, Difficulty Walking, Weakness, Gait Disturbance. Denies: Paresthesia Psychiatric: Reports: Depression ( Due to chronic illness.), Other Hematologic/Lymphatic: Reports: No Symptoms ( Severe disrupted sleep pattern and chronic insomnia) Immunologic: Reports: No Symptoms ED EXAM, GENERAL - Physical Exam Exam: See Below Exam Limited By: No Limitations General Appearance: Anxious, Lethargic, Moderate Distress ( he is in obvious pain and discomfort.) Eye Exam: Bilateral Eye: Normal Inspection Throat/Mouth: Other Head: Atraumatic, Normocephalic ( Tongue is mildly dry and coated) Neck: Normal Inspection, Limited Range of Motion, Tender Lateral, Tender Midline. No: Lymphadenopathy (L), Lymphadenopathy (R), Thyromegaly Respiratory/Chest: No Respiratory Distress, Lungs Clear, Normal Breath Sounds, Other ( facet of diffuse chest wall tenderness.) Cardiovascular: Normal Peripheral Pulses, Regular Rate, Rhythm, No Edema, No Gallop, No Murmur Peripheral Pulses: 2+: Posterior Tibial (L), Posterior Tibial (R), Dorsalis Pedis (L), Dorsalis Pedis (R) GI/Abdominal: Normal Bowel Sounds, Soft, Non-Tender, No Organomegaly Back Exam: Decreased Range of Motion, Vertebral Tenderness ( Throughout the entire spine) Extremities: Other ( tenderness to touch all muscles even dorsal hands wrists hurt.) Neurological: Alert, Oriented, CN II-XII Intact, Normal Cognition. No: Normal Gait, Normal Reflexes Psychiatric: Depressed Mood Skin Exam: Warm, Dry, Intact, Normal Color, No Rash Course - Vital Signs Last Recorded V/S: Last Vital Signs Temp 35.9 C 06/05/17 17:03 Pulse 80 06/05/17 17:03 Resp 16 06/05/17 17:03 BP 139/86 06/05/17 17:03 Pulse Ox - Orders/Labs/Meds Orders: Active Orders 24 hr Category Date Time Status CBC WITH MANUAL DIFF [HEME] Stat Lab 06/05/17 17:50 Results Dextrose 5%-0.9% NaCl [Dextrose 5%-Normal Saline] 1,000 Med 06/05/17 17:45 Active ml IV ASDIRECTED Medication Orders Dextrose/Sodium Chloride (Dextrose 5%-Normal Saline) 1,000 mls @ 999 mls/hr IV ASDIRECTED LUCIAN Last Admin: 06/05/17 18:03 Dose: 999 mls/hr Labs: Laboratory Tests 06/05/17 06/05/17 Range/Units 17:50 17:50 WBC 7.05 (4.23-9.07) K/mm3 RBC 4.59 L (4.63-6.08) M/mm3 Hgb 13.9 (13.7-17.5) gm/L Hct 39.7 L (40.1-51.0) % MCV 86.5 (79.0-92.2) fl MCH 30.3 (25.7-32.2) pg MCHC 35.0 (32.2-35.5) g/dl RDW Std Deviation 42.4 (35.1-43.9) fL Plt Count 185 (163-337) K/mm3 MPV 9.6 (9.4-12.3) fl Sodium 128 L (136-145) mEq/L Potassium 4.1 (3.5-5.1) mEq/L Chloride 92 L (98-107) mEq/L Carbon Dioxide 28 (21-32) mEq/L Anion Gap 12.1 (5-15) BUN 7 (7-18) mg/dL Creatinine 0.8 (0.7-1.3) mg/dL Est Cr Clr Drug Dosing 88.38 mL/min Estimated GFR (MDRD) > 60 (>60) mL/min BUN/Creatinine Ratio 8.8 L (14-18) Glucose 98 (80-115) mg/dL Calcium 9.3 (8.5-10.1) mg/dL Magnesium 1.9 (1.8-2.4) mg/dl Total Bilirubin 0.4 (0.2-1.0) mg/dL AST 19 (15-37) U/L ALT 27 (16-63) U/L Alkaline Phosphatase 113 (46-116) U/L Creatine Kinase 52 (39-308) U/L C-Reactive Protein < 0.2 (<1.0) mg/dL Total Protein 6.8 (6.4-8.2) g/dl Albumin 4.0 (3.4-5.0) g/dl Globulin 2.8 gm/dL Albumin/Globulin Ratio 1.4 (1-2) Meds: Medications Generic Name Dose Route Start Last Admin Trade Name Freq PRN Reason Stop Dose Admin Dextrose/Sodium Chloride 1,000 mls @ 999 mls/hr 06/05/17 17:45 06/05/17 18:03 Dextrose 5%-Normal Saline IV 999 mls/hr ASDIRECTED LUCIAN Administration Discontinued Medications Generic Name Dose Route Start Last Admin Trade Name Freq PRN Reason Stop Dose Admin Diphenhydramine HCl 50 mg 06/05/17 18:46 06/05/17 18:54 Benadryl IVPUSH 06/05/17 18:47 50 mg ONETIME ONE Administration Hydrocortisone Sodium Succinate 100 mg 06/05/17 17:37 06/05/17 17:57 Solu-Cortef IVPUSH 06/05/17 17:38 100 mg ONETIME ONE Administration Hydromorphone HCl 1 mg 06/05/17 17:36 06/05/17 18:01 Dilaudid IVPUSH 06/05/17 17:37 1 mg ONETIME ONE Administration Hydromorphone HCl 1 mg 06/05/17 18:47 06/05/17 18:56 Dilaudid IVPUSH 06/05/17 18:48 1 mg ONETIME ONE Administration Lorazepam 0.5 mg 06/05/17 17:38 06/05/17 17:59 Ativan IVPUSH 06/05/17 17:39 0.5 mg ONETIME ONE Administration Metoclopramide HCl 7.5 mg 06/05/17 17:36 06/05/17 17:52 Reglan IVPUSH 06/05/17 17:37 7.5 mg ONETIME ONE Administration - Radiology Interpretation Free Text/Narrative:: 66-year-old male with chronic pain syndrome presents to the ED essentially for pain management. He is run out of alternatives at home. This last week has been particularly bad with severe overwhelming generalized pain syndrome. He has markedly disrupted sleep pattern which is contributing to his chronic pain syndrome. He has marked anorexia hasn't eaten yet today has drank very little in the last couple of days. Clinically he is mildly volume depleted. Vital signs are essentially within normal limits at this time. Plan routine labs IV will be D5 normal saline at open. Will give Dilaudid 1 mg IV with Reglan 7.5 mg IV and Solu-Cortef 100 mg IV since she has adrenal insufficiency syndrome. Also given 0.5 mg of Ativan IV in hopes that he might get a little rest always in the hospital waiting for his results. - Re-Assessments/Exams Free Text/Narrative Re-Assessment/Exam: 06/05/17 18:48Patient is feeling a little low and see her nervous and it may be a side effect of the Reglan even though I only gave him 7.5 mg IV. I will give him Benadryl 50 mg IV as he is not drowsy from the medications and repeat Dilaudid 1 mg IV. Departure - Departure Time of Disposition: 19:25 Disposition: Home, Self-Care 01 Condition: Fair Clinical Impression: Chronic fatigue fibromyalgia syndrome, Chronic pain syndrome - Discharge Information Referrals: Christofer Macdonald MD [Primary Care Provider] - Forms: ED Department Discharge Additional Instructions: evaluation in the emergency him today in regards to acute exacerbation of chronic pain syndrome and fibromyalgia syndrome. Current medications are not controlling pain and allowing you to sleep. Disrupted sleep pattern is contributing to worsening of the fibromyalgia syndrome. Today you received IV fluids as you have not been eating or drinking well the last few days. he received Dilaudid 1 mg IV and 2 different occasions. Reglan 7.5 mg IV to prevent any nausea or vomiting from the narcotics was also given but it may have made you a little bit and see her at anxious. You therefore given Benadryl 50 mg IV to relieve potential side effects of Reglan. He also did receive a small dose of Ativan 0.5 mg IV for some degree of sedation and hopefully promote some sleep. Lab tests do not reveal any signs of an infection process. Hemoglobin today is 13.9 white count was normal at 7.05 platelets are normal 185,000. Chemistry showed that the sodium was a bit on the low side at 128. Normal is 40. This means that you're not taking adequate electrolytes and drinking too much water. This can cause you to have increased muscle weakness and perhaps pain as well as nausea and loss of appetite. Fluids must be in the form of juices or Gatorade Powerade intermittently with water to ensure adequate electrolyte maintenance. Kidney function is still normal and a gap is normal with no signs of significant dehydration at this time. Liver function kidney function and magnesium levels were all normal. I believe you already on a daily vitamin that should contain some zinc but check and make sure that you' re getting adequate zinc supplements daily as well. - My Orders Last 24 Hours: My Active Orders 06/05/17 17:45 Dextrose 5%-0.9% NaCl [Dextrose 5%-Normal Saline] 1,000 ml IV ASDIRECTED 06/05/17 17:50 CBC WITH MANUAL DIFF [HEME] Stat - Assessment/Plan Last 24 Hours: My Active Orders 06/05/17 17:45 Dextrose 5%-0.9% NaCl [Dextrose 5%-Normal Saline] 1,000 ml IV ASDIRECTED 06/05/17 17:50 CBC WITH MANUAL DIFF [HEME] Stat
[2017-06-05] MEDS ORDERED: Metoclopramide 10 MG/2 ML SDV IVPUSH ONE (17:36)
[2017-06-05] MEDS ORDERED: HYDROmorphone 1 MG/ML Syringe IVPUSH ONE ×2 (17:36→18:47)
[2017-06-05] MEDS ORDERED: Hydrocortisone Sodium Succinate 100 MG/2 ML SDV IVPUSH ONE (17:37)
[2017-06-05] MEDS ORDERED: LORazepam 2 MG/ML MDV IVPUSH ONE (17:38)
[2017-06-05] MEDS ORDERED: Dextrose 5%-0.9% NaCl 1,000 ML IV SCH (17:45)
[2017-06-05] MEDS ORDERED: diphenhydrAMINE 50 MG/ML SDV IVPUSH ONE (18:46)
[2017-06-05 19:16] VITALS: BP 152/83
== END 2017-06-05 19:05 | disposition home or self-care (01) ==
LOC: JD.ED 16:52
DX: M79.7 Fibromyalgia (principal); R53.82 Chronic fatigue, unspecified; G89.29 Other chronic pain; I10 Essential (primary) hypertension; E78.00 Pure hypercholesterolemia, unspecified; M19.90 Unspecified osteoarthritis, unspecified site; F32.9 Major depressive disorder, single episode, unspecified; Z87.891 Personal history of nicotine dependence; Z98.890 Other specified postprocedural states; Z95.0 Presence of cardiac pacemaker; Z93.3 Colostomy status; Z79.82 Long term (current) use of aspirin; Z79.899 Other long term (current) drug therapy; Z88.5 Allergy status to narcotic agent; Z88.6 Allergy status to analgesic agent; Z88.1 Allergy status to other antibiotic agents; Z88.8 Allergy status to other drugs, medicaments and biological substances
CPT/HCPCS: 36415; 80053; 82550; 83735; 85025; 86140; 96361; 96374; 96375; 96376; 99284; J1170; J1200; J1720; J2060; J2765; J7042

== ENCOUNTER 2017-07-09 17:29 | Emergency (ER) | payer MEDICARE, OTHER ==
[2017-07-09 17:47] VITALS: BP 131/51
[2017-07-09] MEDS ORDERED: HYDROmorphone 0.5 MG/0.5 ML Syringe IVPUSH ONE (18:08)
[2017-07-09] MEDS ORDERED: LORazepam 2 MG/ML MDV IVPUSH ONE (18:08)
[2017-07-09] MEDS ORDERED: Sodium Chloride 0.9% 10 ML Syringe FLUSH PRN (18:08)
[2017-07-09] MEDS ORDERED: HYDROmorphone 1 MG/ML Syringe IVPUSH ONE (18:41)
[2017-07-09] MEDS: Sodium Chloride 0.9% 1,000 ML IV ONE (18:53)
--- NOTE | 2017-07-09 19:47 | EDM.PDOC ---
ED HPI GENERAL MEDICAL PROBLEM - General Chief Complaint: Fever Stated Complaint: FEVER,BODY PAIN Time Seen by Provider: 07/09/17 17:44 Source of Information: Reports: Patient History Limitations: Reports: No Limitations - History of Present Illness INITIAL COMMENTS - FREE TEXT/NARRATIVE: 66-year-old male presents to evaluation and treatment of sore throat, fever and postnasal drip. Patient reports that he has been feeling ill for the last week. His states that she took his temperature at home today and it was 101 prior to arrival in the ER. Has been using Robitussin and cough drops but has gotten little symptom relief. He is currently complaining of a nonproductive cough, body aches, headaches, sore throat and abdominal pain. is present at bedside an states he has chronic abdominal pain and body aches. History of fibromyalgia. Current on pain medication for the fibromyalgia. Believes his fever is upper respiratory in origin. Patient also has a history of adreneal insufficiency. reports she has doubled his hydrocortisone the last 3 days, which is what she has been instructed to do during time of illness and stress. They are mostly concerned for their daughter. They have a daughter living with them currently who is undergoing chemo for bladder cancer. Throat Pain Score (Numeric/FACES): 8 - Related Data Allergies Allergy/AdvReac Type Severity Reaction Status Date / Time amlodipine besylate Allergy Anaphylactic Verified 07/09/17 17:42 [From Norvasc] Shock propoxyphene napsylate Allergy Rash Verified 07/09/17 17:42 [From Darvocet-N 100] acetaminophen [From Percocet] AdvReac Hallucinati Verified 07/09/17 17:42 ons cephalexin [Cephalexin] AdvReac Vomiting Verified 07/09/17 17:42 morphine AdvReac Nausea Verified 07/09/17 17:42 oxycodone [From Percocet] AdvReac Hallucinati Verified 07/09/17 17:42 ons Home Meds: Home Meds Allopurinol [Zyloprim] 150 mg PO BID 02/04/14 [History] Diazepam [Valium] 5 mg PO Q8H 02/04/14 [History] Famotidine [Pepcid] 20 mg PO BID PRN 02/04/14 [History] Omeprazole [Prilosec] 20 mg PO BID 02/04/14 [History] Potassium Chloride [Klor-Con 10] 20 meq PO DAILY 02/04/14 [History] Rosuvastatin [Crestor] 20 mg PO DAILY 02/04/14 [History] Valsartan [Diovan] 80 mg PO DAILY 02/04/14 [History] Calcium Carbonate [Tums] 4 tab PO DAILY 02/20/14 [History] Cholecalciferol (Vitamin D3) [Vitamin D3] 4,000 unit PO DAILY 09/01/14 [History] Pregabalin [Lyrica] 150 mg PO BID 09/06/14 [History] Methylcellulose [Citrucel] 1,000 mg PO BID 12/29/14 [History] Acetaminophen [Tylenol] 500 mg PO Q4H PRN 03/14/16 [History] Aspirin [Halfprin] 81 mg PO DAILY 03/14/16 [History] Hydrocortisone [Cortef] 5 mg PO PCDINNER 03/14/16 [History] Hydrocortisone [Cortef] 10 mg PO PCBREAKFAST 03/14/16 [History] PARoxetine HCl [Paxil] 10 mg PO DAILY 03/14/16 [History] Simethicone 125 mg PO BID 03/14/16 [History] Acetaminophen/Butalbital/Caff [Fioricet 325-50-40 MG] 1 tab PO Q6H 03/28/16 [ History] B1/B2/Niacin/B12/Protease [B-Complex with B-12 Tablet] 1 each PO DAILY 03/28/16 [History] fentaNYL [Duragesic] 1 patch TD Q48H 03/28/16 [History] traMADol [Ultram] 50 mg PO Q6H PRN 03/28/16 [History] Ferrous Sulfate 325 mg PO DAILY 09/10/16 [History] B2/Vit A,C & E/Lut/Zeaxanth/Mn [Icaps] 1 tab PO BID 01/25/17 [History] Lactobacillus Acidophilus [Acidophilus Lactobacilli] 1 tab PO DAILY 01/25/17 [ History] Azithromycin 250 mg PO DAILY #25 ml 07/09/17 [Rx] Benzonatate [Tessalon Perles] 100 mg PO TID PRN #12 cap 07/09/17 [Rx] Past Medical History HEENT History: Reports: Hard of Hearing, Impaired Vision Other HEENT History: wears glasses, dentures Cardiovascular History: Reports: Arrhythmia, High Cholesterol, Hypertension, Pacemaker, Other (See Below) Other Cardiovascular History: sick sinus syndrome Respiratory History: Reports: SOB Gastrointestinal History: Reports: Bowel Obstruction, Other (See Below) Other Gastrointestinal History: chronic abd pain Other Genitourinary History: Urinary frequency [employer] History: Reports: None Musculoskeletal History: Reports: Back Pain, Chronic, Fibromyalgia, Osteoarthritis, Other (See Below) Other Musculoskeletal History: carpal tunnel syndrome bilaterally Neurological History: Reports: Headaches, Chronic, Neuropathy, Peripheral, Other (See Below) Other Neuro History: dura-fluid leak with patch Psychiatric History: Reports: Anxiety, Depression, Other (See Below) Other Psychiatric History: chronic pain syndrome, chronic fatigue Endocrine/Metabolic History: Reports: Other (See Below) Other Endocrine/Metabolic History: adrenal insufficiancy Other Hematologic History: hypokalemia Immunologic History: Reports: None Oncologic (Cancer) History: Reports: None - Past Surgical History HEENT Surgical History: Reports: Naso-Sinus Surgery, Tonsillectomy Cardiovascular Surgical History: Reports: Pacer GI Surgical History: Reports: Colon, Colonoscopy, Colostomy, EGD, Other (See Below) Other GI Surgeries/Procedures: colon resection w/ colostomy and reversal Endocrine Surgical History: Reports: Other (See Below) Other Endocrine Surgeries/Procedures: nonfunctioning adrenal gland Neurological Surgical History: Reports: Vertebroplasty Other Neurological Surgeries/Procedures: Nerve block Musculoskeletal Surgical History: Reports: Carpal Tunnel, Hip Replacement, Other (See Below) Other Musculoskeletal Surgeries/Procedures:: 14 back surgeries, ruptured discs, right total hip, right total knee, carpal tunnel procedures, trigger finger procedure Dermatological Surgical History: Reports: Skin Graft Social & Family History - Family History Other HEENT Family History: Pt states daughter is blind in one eye. Cardiac: Reports: CAD, [place] Other Cardiac Family History: Pt states Father @ 53y/o. Oncologic: Reports: Bladder Other Oncologic Family History: Pt states daughter has rare bladder CA and also lost her site in one eye from it. - Tobacco Use Smoking Status *Q: Unknown Ever Smoked Years of Tobacco use: 2 Used Tobacco, but Quit: No Month Tobacco Last Used: 44 yrs ago Second Hand Smoke Exposure: No - Caffeine Use Caffeine Use: Reports: None - Alcohol Use Days Per Week of Alcohol Use: 0 Number of Drinks Per Day: 0 Total Drinks Per Week: 0 - Recreational Drug Use Recreational Drug Use: No Drug Use in Last 12 Months: No - Living Situation & Occupation Living situation: Reports: with Spouse ED ROS GENERAL - Review of Systems Review Of Systems: See Below Constitutional: Reports: Fever (101 at home), Other (reports body aches) HEENT: Reports: Rhinitis, Throat Pain, Other (reports post nasal drainag) Respiratory: Reports: Cough. Denies: Sputum GI/Abdominal: Reports: Abdominal Pain Neurological: Reports: Headache ED EXAM, GENERAL - Physical Exam Exam: See Below Exam Limited By: No Limitations General Appearance: Alert, No Apparent Distress, Anxious, Thin Ears: Normal External Exam, Normal Canal, Normal TMs, Hearing Loss (chronic) Ear Exam: Bilateral Ear: Auricle Normal, Canal Normal, TM normal Nose: Normal Inspection Throat/Mouth: Normal Inspection, Normal Lips, Normal Teeth, Normal Gums, Normal Oropharynx, Normal Voice, No Airway Compromise Neck: Normal Inspection, Full Range of Motion Respiratory/Chest: No Respiratory Distress, Lungs Clear, Normal Breath Sounds Cardiovascular: Normal Peripheral Pulses, Regular Rate, Rhythm, No Murmur GI/Abdominal: Soft, Non-Tender, No Distention, Other (hypoactive bowel sounds) Neurological: Alert, Oriented, Normal Cognition, Normal Gait Psychiatric: Normal Affect, Normal Mood, Anxious Skin Exam: Warm, Dry, Normal Color Course - Vital Signs Last Recorded V/S: Last Vital Signs Temp 36.6 C 07/09/17 17:44 Pulse 72 07/09/17 17:44 Resp 18 07/09/17 17:44 BP 131/51 L 07/09/17 17:44 Pulse Ox 90 L 07/09/17 17:44 - Orders/Labs/Meds Labs: Laboratory Tests 07/09/17 07/09/17 07/09/17 Range/Units 18:25 18:25 19:07 WBC 22.54 H (4.23-9.07) K/mm3 RBC 4.79 (4.63-6.08) M/mm3 Hgb 14.5 (13.7-17.5) gm/L Hct 43.1 (40.1-51.0) % MCV 90.0 (79.0-92.2) fl MCH 30.3 (25.7-32.2) pg MCHC 33.6 (32.2-35.5) g/dl RDW Std Deviation 45.8 H (35.1-43.9) fL Plt Count 207 (163-337) K/mm3 MPV 9.0 L (9.4-12.3) fl Neut % (Auto) 87.8 H (34.0-67.9) % Lymph % (Auto) 7.1 L (21.8-53.1) % Moore % (Auto) 4.7 L (5.3-12.2) % Eos % (Auto) 0 L (0.8-7.0) Baso % (Auto) 0.1 (0.1-1.2) % Neut # (Auto) 19.78 H (1.78-5.38) K/mm3 Lymph # (Auto) 1.59 (1.32-3.57) K/mm3 Moore # (Auto) 1.07 H (0.30-0.82) K/mm3 Eos # (Auto) 0.01 L (0.04-0.54) K/mm3 Baso # (Auto) 0.03 (0.01-0.08) K/mm3 Manual Slide Review Abnormal smear Sodium 138 (136-145) mEq/L Potassium 4.0 (3.5-5.1) mEq/L Chloride 99 (98-107) mEq/L Carbon Dioxide 30 (21-32) mEq/L Anion Gap 13.0 (5-15) BUN 1 L (7-18) mg/dL Creatinine 1.0 (0.7-1.3) mg/dL Est Cr Clr Drug Dosing TNP Estimated GFR (MDRD) > 60 (>60) mL/min BUN/Creatinine Ratio 1.0 L (14-18) Glucose 103 (80-115) mg/dL Calcium 9.4 (8.5-10.1) mg/dL Total Bilirubin 0.4 (0.2-1.0) mg/dL AST 27 (15-37) U/L ALT 35 (16-63) U/L Alkaline Phosphatase 129 H (46-116) U/L C-Reactive Protein 11.0 H* (<1.0) mg/dL Total Protein 7.2 (6.4-8.2) g/dl Albumin 3.5 (3.4-5.0) g/dl Globulin 3.7 gm/dL Albumin/Globulin Ratio 1.0 (1-2) Urine Color Yellow (Yellow) Urine Appearance Clear (Clear) Urine pH 7.0 (5.0-8.0) Ur Specific [place] 1.015 (1.005-1.030) Urine Protein Negative (Negative) Urine Glucose (UA) Negative (Negative) Urine Ketones Negative (Negative) Urine Occult Blood Negative (Negative) Urine Nitrite Negative (Negative) Urine Bilirubin Negative (Negative) Urine Urobilinogen 0.2 (0.2-1.0) Ur Leukocyte Esterase Negative (Negative) Urine RBC 0-5 (0-5) /hpf Urine WBC Not seen (0-5) /hpf Ur Epithelial Cells Not seen (0-5) /hpf Urine Bacteria Few (FEW) /hpf Urine Mucus Not seen (FEW) /hpf Meds: Medications Discontinued Medications Generic Name Dose Route Start Last Admin Trade Name Freq PRN Reason Stop Dose Admin Azithromycin 500 mg 07/09/17 19:58 07/09/17 20:12 Zithromax 200 Mg/5 Ml Susp PO 07/09/17 19:59 12.5 ml ONETIME ONE Administration Hydromorphone HCl 1 mg 07/09/17 18:08 07/09/17 18:49 Dilaudid IVPUSH 07/09/17 18:09 Not Given ONETIME ONE Hydromorphone HCl 1 mg 07/09/17 18:41 07/09/17 18:48 Dilaudid IVPUSH 07/09/17 18:42 1 mg ONETIME ONE Administration Sodium Chloride 1,000 mls @ 999 mls/hr 07/09/17 18:08 07/09/17 18:53 Normal Saline IV 07/09/17 19:08 999 mls/hr ONETIME ONE Administration Lorazepam 0.5 mg 07/09/17 18:08 07/09/17 18:50 Ativan IVPUSH 07/09/17 18:09 0.5 mg ONETIME ONE Administration Sodium Chloride 10 ml 07/09/17 18:08 07/09/17 19:41 Saline Flush FLUSH 10 ml ASDIRECTED PRN Administration Keep Vein Open - Radiology Interpretation Free Text/Narrative:: chest xray shows an area suspicious for a left lower lobe early pneumonia. formal radiology read pending. - Re-Assessments/Exams Free Text/Narrative Re-Assessment/Exam: 07/09/17 19:57 I reviewed the lab and imaging results with the patient. I Feel his white cell count is elevated likely from his increase in hydrocortisone recently. I discussed with him inpatient admission for an early pneumonia and bronchitis. Given his history, I feel this would be appropriate. He states he would like to try outpatient management first. I will start him on azithromycin and given some Tessalon Perles. He is instructed to return to the ER for symptoms change or worsen. He is to follow-up with his primary care provider this week or early next week for recheck of his symptoms. I encouraged him to use good hand hyigene and avoid his daughter during this time. Departure - Departure Time of Disposition: 20:23 Disposition: Home, Self-Care 01 Condition: Fair Clinical Impression: Bronchitis - Discharge Information Prescriptions: Azithromycin 250 mg PO DAILY #25 ml Benzonatate [Tessalon Perles] 100 mg PO TID PRN #12 cap PRN Reason: Cough Instructions: Acute Bronchitis Referrals: Christofer Macdonald MD [Primary Care Provider] - Forms: ED Department Discharge Additional Instructions: Take the azithromycin as prescribed. 6.25 Mls or 250 mg by mouth daily for the next 4 days. Start this perception tomorrow. Tessalon Perles 1 cap PO 3 times a day as needed for cough. These [facility]. Follow up with your primary care provider this week or early next week for recheck of your symptoms. Rest and drink plenty of fluids. Please return to the ER if your symptoms change or worsen.
[2017-07-09] MEDS ORDERED: Azithromycin 200 MG/5 ML Susp 30 ML Bottle PO ONE (19:58)
--- NOTE | 2017-07-10 08:12 | CR ---
Chest: Two views of the chest were obtained. Comparison: Previous chest x-ray of 09/14/16. Heart size and mediastinum are within normal limits. Patchy increased density noted within the left perihilar and left lower lung most likely due to combination of bronchitis and early pneumonia. Limited inspiratory effort causes some increased lung markings on the right side. Air-filled bowel seen beneath the diaphragm and hemidiaphragm on the right side which is normal variant. Pacemaker is noted. Bony structures are unremarkable. Incidental note of several old healed left lower rib fractures. Impression: 1. Findings felt compatible with left-sided bronchitis and early left lower lobe pneumonia. 2. Other incidental findings. Diagnostic code #3
== END 2017-07-09 20:45 | disposition home or self-care (01) ==
LOC: JD.ED 17:29
DX: J40 Bronchitis, not specified as acute or chronic (principal); I10 Essential (primary) hypertension; E78.00 Pure hypercholesterolemia, unspecified; F32.9 Major depressive disorder, single episode, unspecified; M19.90 Unspecified osteoarthritis, unspecified site; Z98.890 Other specified postprocedural states; Z95.0 Presence of cardiac pacemaker; Z96.641 Presence of right artificial hip joint; Z96.651 Presence of right artificial knee joint; Z93.3 Colostomy status; Z79.2 Long term (current) use of antibiotics; Z79.899 Other long term (current) drug therapy; Z88.1 Allergy status to other antibiotic agents; Z88.5 Allergy status to narcotic agent; Z88.6 Allergy status to analgesic agent; Z88.8 Allergy status to other drugs, medicaments and biological substances
CPT/HCPCS: 36415; 71020; 80053; 81001; 85025; 86140; 87081; 87430; 87804; 96361; 96374; 96375; 99284; A9270; J1170; J2060; J7040; J7050

== ENCOUNTER 2017-08-26 14:31 | Emergency (ER) | payer MEDICARE, OTHER ==
[2017-08-26 14:45] VITALS: BP 188/85
[2017-08-26] MEDS ORDERED: Sodium Chloride 0.9% 10 ML Syringe FLUSH PRN (15:09)
[2017-08-26] MEDS ORDERED: Famotidine 20 MG/2 ML SDV IVPUSH ONE (15:09)
[2017-08-26] MEDS ORDERED: Sodium Chloride 0.9% 500 ML IV ONE (15:09)
[2017-08-26] MEDS ORDERED: Ondansetron 4 MG/2 ML SDV IVPUSH ONE (15:09)
[2017-08-26] MEDS ORDERED: HYDROmorphone 1 MG/ML Syringe IVPUSH ONE (15:09)
[2017-08-26] MEDS ORDERED: Diatrizoate Meglumine/Diatrizoate Sodium 37% 120 ML Bottle PO ONE (15:30)
[2017-08-26] MEDS ORDERED: Sodium Chloride 0.9% 10 ML Syringe FLUSH ONE (15:30)
[2017-08-26] MEDS ORDERED: Iopamidol 612 MG/ML 150 ML Bottle IVPUSH ONE (15:30)
--- NOTE | 2017-08-26 16:53 | PCM.SN ---
- Free Text/Narrative Note: Start: 1639 Stop: 1651 IV start times one attempt, 20 gauge to right hand, flushed with 10ml's of normal saline.
--- NOTE | 2017-08-26 18:19 | CT ---
CT abdomen and pelvis Technique: Multiple axial sections were obtained from above the dome of the diaphragm inferiorly through the pubic symphysis. Intravenous and oral contrast has been given. Delayed images were also obtained through the bladder. Comparison: Previous CT abdomen and pelvis exam of 09/12/16. Findings: Small portion of the visualized lung bases shows nothing acute. Small hiatal hernia is seen. Spleen appears within normal limits. Liver shows no focal parenchymal abnormality. Gallbladder contains no calcified gallstones. Adrenal glands contain no nodule. Kidneys show cysts which appear stable from prior CT exam. No hydronephrosis is seen. Delayed images show contrast within the distal ureters and within the bladder. Mild focal dilatation of the mid right ureter is seen which is stable from prior CT exam and therefore felt to be incidental. Bladder is somewhat distended. Aorta and iliac vessels show mild atherosclerotic change without aneurysmal dilatation. Evidence of prior bowel surgery. Appendix is not visualized with certainty. No pelvic mass or adenopathy is seen. There is artifact within the pelvis due to right hip prosthesis. Previous lumbar spine surgery is noted. Disc space narrowing and epidural air is noted at L5-S1. Epidural air is due to annular rupture with vacuum disc phenomena. Impression: 1. Incidental findings. 2. Mildly dilated bladder containing urine. Findings suggest an element of bladder outlet obstruction. 3. Nothing acute is otherwise seen on CT study of the abdomen and pelvis. Diagnostic code #3
[2017-08-26] MEDS ORDERED: Pregabalin 75 MG Cap PO ONE (18:24)
[2017-08-26] MEDS ORDERED: fentaNYL 100 MCG/HR Transdermal Patch TRDERM ONE (18:27)
[2017-08-26] MEDS ORDERED: Ketorolac 30 MG/ML SDV IVPUSH SCH (19:00)
--- NOTE | 2017-08-26 19:21 | EDM.PDOC ---
ED HPI GENERAL MEDICAL PROBLEM - General Chief Complaint: Abdominal Pain Stated Complaint: POSS. BOWEL OBSTRUCTION Time Seen by Provider: 08/26/17 14:38 Source of Information: Reports: Patient, RN Notes Reviewed - History of Present Illness INITIAL COMMENTS - FREE TEXT/NARRATIVE: 66 year old male referred from clinic for abd pain worsening over several days and planned admission for acute bowel obstruction. Flat and upright Xrays at clinic showed air fluid levels suggestive for acute bowel obstruction which he has had in the past. He does of chronic pain syndrome, hx of chronic constipation, hx of prior bowel obstructions. Pain is mostly upper mid abd, more severe this morning, nausea but no vomiting fever or chills. Abdomen Pain Score (Numeric/FACES): 9 - Related Data Allergies Allergy/AdvReac Type Severity Reaction Status Date / Time amlodipine besylate Allergy Anaphylactic Verified 07/09/17 17:42 [From Norvasc] Shock propoxyphene napsylate Allergy Rash Verified 07/09/17 17:42 [From Darvocet-N 100] acetaminophen [From Percocet] AdvReac Hallucinati Verified 07/09/17 17:42 ons cephalexin [Cephalexin] AdvReac Vomiting Verified 07/09/17 17:42 morphine AdvReac Nausea Verified 07/09/17 17:42 oxycodone [From Percocet] AdvReac Hallucinati Verified 07/09/17 17:42 ons Home Meds: Home Meds Allopurinol [Zyloprim] 150 mg PO BID 02/04/14 [History] Diazepam [Valium] 5 mg PO Q8H 02/04/14 [History] Famotidine [Pepcid] 20 mg PO BID PRN 02/04/14 [History] Omeprazole [Prilosec] 20 mg PO DAILY 02/04/14 [History] Potassium Chloride [Klor-Con 10] 20 meq PO DAILY 02/04/14 [History] Rosuvastatin [Crestor] 20 mg PO DAILY 02/04/14 [History] Valsartan [Diovan] 80 mg PO DAILY 02/04/14 [History] Calcium Carbonate [Tums] 4 tab PO DAILY 02/20/14 [History] Cholecalciferol (Vitamin D3) [Vitamin D3] 4,000 unit PO DAILY 09/01/14 [History] Pregabalin [Lyrica] 150 mg PO BID 09/06/14 [History] Methylcellulose [Citrucel] 1,000 mg PO BID 12/29/14 [History] Acetaminophen [Tylenol] 500 mg PO Q4H PRN 03/14/16 [History] Aspirin [Halfprin] 81 mg PO DAILY 03/14/16 [History] Hydrocortisone [Cortef] 5 mg PO PCDINNER 03/14/16 [History] Hydrocortisone [Cortef] 10 mg PO PCBREAKFAST 03/14/16 [History] PARoxetine HCl [Paxil] 10 mg PO DAILY 03/14/16 [History] Simethicone 125 mg PO BID 03/14/16 [History] B1/B2/Niacin/B12/Protease [B-Complex with B-12 Tablet] 1 each PO DAILY 03/28/16 [History] fentaNYL [Duragesic] 1 patch TD Q48H 03/28/16 [History] traMADol [Ultram] 50 mg PO Q6H PRN 03/28/16 [History] Ferrous Sulfate 325 mg PO DAILY 09/10/16 [History] B2/Vit A,C & E/Lut/Zeaxanth/Mn [Icaps] 1 tab PO BID 01/25/17 [History] Butalbital/Aspirin/Caffeine [Fiorinal 50-325-40 MG] 1 tab PO Q6H PRN 08/26/17 [ History] Lactobacillus Acidophilus [Acidophilus] 1 each PO DAILY 08/26/17 [History] Past Medical History HEENT History: Reports: Hard of Hearing, Impaired Vision Other HEENT History: wears glasses, dentures Cardiovascular History: Reports: Arrhythmia, High Cholesterol, Hypertension, Pacemaker, Other (See Below) Other Cardiovascular History: sick sinus syndrome Respiratory History: Reports: SOB Gastrointestinal History: Reports: Bowel Obstruction, Other (See Below) Other Gastrointestinal History: chronic abd pain Other Genitourinary History: Urinary frequency CCO & PRESIDENT History: Reports: None Musculoskeletal History: Reports: Back Pain, Chronic, Fibromyalgia, Osteoarthritis, Other (See Below) Other Musculoskeletal History: carpal tunnel syndrome bilaterally Neurological History: Reports: Headaches, Chronic, Neuropathy, Peripheral, Other (See Below) Other Neuro History: dura-fluid leak with patch Psychiatric History: Reports: Anxiety, Depression, Other (See Below) Other Psychiatric History: chronic pain syndrome, chronic fatigue Endocrine/Metabolic History: Reports: Other (See Below) Other Endocrine/Metabolic History: adrenal insufficiancy Other Hematologic History: hypokalemia Immunologic History: Reports: None Oncologic (Cancer) History: Reports: None - Past Surgical History HEENT Surgical History: Reports: Naso-Sinus Surgery, Tonsillectomy Cardiovascular Surgical History: Reports: Pacer GI Surgical History: Reports: Colon, Colonoscopy, Colostomy, EGD, Other (See Below) Other GI Surgeries/Procedures: colon resection w/ colostomy and reversal Endocrine Surgical History: Reports: Other (See Below) Other Endocrine Surgeries/Procedures: nonfunctioning adrenal gland Neurological Surgical History: Reports: Vertebroplasty Other Neurological Surgeries/Procedures: Nerve block Musculoskeletal Surgical History: Reports: Carpal Tunnel, Hip Replacement, Other (See Below) Other Musculoskeletal Surgeries/Procedures:: 14 back surgeries, ruptured discs, right total hip, right total knee, carpal tunnel procedures, trigger finger procedure Dermatological Surgical History: Reports: Skin Graft Social & Family History - Family History Other HEENT Family History: Pt states daughter is blind in one eye. Cardiac: Reports: CAD, [place] Other Cardiac Family History: Pt states Father @ 53y/o. Oncologic: Reports: Bladder Other Oncologic Family History: Pt states daughter has rare bladder CA and also lost her site in one eye from it. - Tobacco Use Smoking Status *Q: Never Smoker Years of Tobacco use: 2 Used Tobacco, but Quit: No Month Tobacco Last Used: 44 yrs ago Second Hand Smoke Exposure: No - Caffeine Use Caffeine Use: Reports: None - Alcohol Use Days Per Week of Alcohol Use: 0 Number of Drinks Per Day: 0 Total Drinks Per Week: 0 - Recreational Drug Use Recreational Drug Use: No Drug Use in Last 12 Months: No - Living Situation & Occupation Living situation: Reports: with Spouse ED ROS GENERAL - Review of Systems Review Of Systems: See Below Constitutional: Denies: Fever, Chills HEENT: Reports: No Symptoms Respiratory: Denies: Shortness of Breath Cardiovascular: Denies: Chest Pain GI/Abdominal: Reports: Abdominal Pain (upper abd with intermitant cramps), Anorexia, Diarrhea (very small amts only in the last day or 2), Decreased Appetite, Nausea. Denies: Vomiting Musculoskeletal: Reports: Other (chronic achiness) Skin: Reports: No Symptoms Neurological: Reports: Dizziness (mild) ED EXAM, GI/ABD - Physical Exam Exam: See Below General Appearance: Alert, Mild Distress Throat/Mouth: Normal Inspection, Normal Oropharynx Head: No: Facial Swelling Neck: Supple, Full Range of Motion Respiratory/Chest: No Respiratory Distress, Lungs Clear, Normal Breath Sounds Cardiovascular: Regular Rate, Rhythm GI/Abdominal Exam: Soft, Tender (upper mid abd). No: Guarding, Rebound Back Exam: No: CVA Tenderness (L), CVA Tenderness (R) Extremities: Normal Inspection, Normal Range of Motion. No: Pedal Edema Neurological: Alert, Oriented, No Motor/Sensory Deficits Skin Exam: Warm, Dry, Normal Color Course - Vital Signs Last Recorded V/S: Last Vital Signs Temp 97 F 08/26/17 14:41 Pulse 59 L 08/26/17 14:41 Resp 18 08/26/17 14:41 BP 188/85 H 08/26/17 14:41 Pulse Ox 98 08/26/17 14:41 - Orders/Labs/Meds Orders: Active Orders 24 hr Category Date Time Status Peripheral IV Care [RC] . DIRECTED Care 08/26/17 15:10 Active Ketorolac [Toradol] Med 08/26/17 19:00 Active 15 mg IVPUSH ONETIME Sodium Chloride 0.9% [Saline Flush] Med 08/26/17 15:09 Active 10 ml FLUSH ASDIRECTED PRN Peripheral IV Insertion Adult [OM.PC] Stat Oth 08/26/17 15:09 Ordered Medication Orders Ketorolac Tromethamine (Toradol) 15 mg IVPUSH ONETIME LUCIAN Last Admin: 08/26/17 19:09 Dose: 15 mg Sodium Chloride (Saline Flush) 10 ml FLUSH ASDIRECTED PRN PRN Reason: Keep Vein Open Meds: Medications Generic Name Dose Route Start Last Admin Trade Name Freq PRN Reason Stop Dose Admin Ketorolac Tromethamine 15 mg 08/26/17 19:00 08/26/17 19:09 Toradol IVPUSH 15 mg ONETIME LUCIAN Administration Sodium Chloride 10 ml 08/26/17 15:09 Saline Flush FLUSH ASDIRECTED PRN Keep Vein Open Discontinued Medications Generic Name Dose Route Start Last Admin Trade Name Freq PRN Reason Stop Dose Admin Diatrizoate Meglum/Diatrizoate Sod 90 ml 08/26/17 15:30 08/26/17 17:42 Gastrografin 37% PO 08/26/17 15:31 90 ml ONETIME ONE Administration Famotidine 20 mg 08/26/17 15:09 08/26/17 15:57 Pepcid IVPUSH 08/26/17 15:10 20 mg ONETIME ONE Administration Fentanyl 100 mcg 08/26/17 18:27 08/26/17 18:38 Duragesic TRDERM 08/26/17 18:28 100 mcg ONETIME ONE Administration Hydrocortisone 5 mg 08/27/17 18:26 Cortef PO 08/27/17 18:27 ONETIME ONE Hydromorphone HCl 1 mg 08/26/17 15:09 08/26/17 15:58 Dilaudid IVPUSH 08/26/17 15:10 1 mg ONETIME ONE Administration Sodium Chloride 500 mls @ 999 mls/hr 08/26/17 15:09 08/26/17 15:58 Normal Saline IV 08/26/17 15:39 999 mls/hr .BOLUS ONE Administration Iopamidol 125 ml 08/26/17 15:30 08/26/17 17:43 Isovue-300 (61%) IVPUSH 08/26/17 15:31 125 ml ONETIME ONE Administration Ondansetron HCl 4 mg 08/26/17 15:09 08/26/17 15:57 Zofran IVPUSH 08/26/17 15:10 4 mg ONETIME ONE Administration Pregabalin 150 mg 08/26/17 18:24 08/26/17 18:36 Lyrica PO 08/26/17 18:25 150 mg ONETIME ONE Administration Sodium Chloride 10 ml 08/26/17 15:30 08/26/17 17:44 Saline Flush FLUSH 08/26/17 15:31 10 ml ONETIME ONE Administration - Re-Assessments/Exams Free Text/Narrative Re-Assessment/Exam: 08/26/17 19:00. labs were faxed over from the clinic, not repeated here. I discussed sx with Dr Damian Hospitalist who does want Abd CT prior to admission. That was done with oral and IV contrast. Did not show acute bowel obstruction. See Radiologist report for details. Will discharge home at this time. Discharge instr. as documented. Departure - Departure Time of Disposition: 19:19 Disposition: Home, Self-Care 01 Condition: Fair Clinical Impression: Abdominal pain, Slow transit constipation - Discharge Information Referrals: Christofer Macdonald MD [Primary Care Provider] - Forms: ED Department Discharge Additional Instructions: drink plenty of water, continue fiber pills twice daily, begin stool softner such as colace or pericolace and take that once or twice daily. The oral contrast from the CT will likely act as a laxative and help you have a BM. If no BM by morning than take a dose of miralax. Follow up with Dr Macdonald as needed, return to ED if sx worsening in any way. - My Orders Last 24 Hours: My Active Orders 08/26/17 15:09 Sodium Chloride 0.9% [Saline Flush] 10 ml FLUSH ASDIRECTED PRN Peripheral IV Insertion Adult [OM.PC] Stat 08/26/17 15:10 Peripheral IV Care [RC] . DIRECTED 08/26/17 19:00 Ketorolac [Toradol] 15 mg IVPUSH ONETIME - Assessment/Plan Last 24 Hours: My Active Orders 08/26/17 15:09 Sodium Chloride 0.9% [Saline Flush] 10 ml FLUSH ASDIRECTED PRN Peripheral IV Insertion Adult [OM.PC] Stat 08/26/17 15:10 Peripheral IV Care [RC] . DIRECTED 08/26/17 19:00 Ketorolac [Toradol] 15 mg IVPUSH ONETIME
== END 2017-08-26 19:40 | disposition home or self-care (01) ==
LOC: JD.ED 14:31
DX: K59.01 Slow transit constipation (principal); I10 Essential (primary) hypertension; E78.00 Pure hypercholesterolemia, unspecified; Z79.899 Other long term (current) drug therapy; Z79.82 Long term (current) use of aspirin; Z88.5 Allergy status to narcotic agent; Z88.1 Allergy status to other antibiotic agents; Z88.8 Allergy status to other drugs, medicaments and biological substances
CPT/HCPCS: 74177; 96361; 96374; 96375; 99285; A9270; J1170; J1885; J2405; J7040; J7050; Q9963; Q9967; 99284

== ENCOUNTER 2017-09-20 17:18 | Emergency (ER) | payer MEDICARE, OTHER ==
[2017-09-20 17:49] VITALS: BP 159/79
[2017-09-20] MEDS ORDERED: HYDROmorphone 1 MG/ML Syringe IM ONE (20:31)
--- NOTE | 2017-09-20 20:33 | EDM.PDOC ---
ED HPI GENERAL MEDICAL PROBLEM - General Chief Complaint: Lower Extremity Injury/Pain Stated Complaint: HIP AND BUTTOCKS PAIN DUE TO FALL EARLIER IN WEEK Time Seen by Provider: 09/20/17 18:30 Source of Information: Reports: Patient, Old Records History Limitations: Reports: No Limitations - History of Present Illness INITIAL COMMENTS - FREE TEXT/NARRATIVE: 66 year old male presents for evaluation and treatment of back and hip pain. Patient reports about one week ago he was getting into a truck. He stepped on the side rail onto some ice and slipped. States he landed on both feet. Reports the incident "jerked" him. Reports on Saturday he slipped on the ice. Again landed on his feet but the incident again "jerked" him. He is currently experiencing pain from his shoulder down into his back , hips, legs and feet. He has been walking. Currently on fentayl patch for chronic pain. States he did take a tramadol as well for additional pain relief. The pain has become quite intense therefore he presented to the ER [facility]. He is still able to walk. He is also complaining of abdominal pain from the incidents. Treatments [employer] SUPERVISOR: Reports: Other (see below) Other Treatments [employer]SE SUPERVISOR: regular pain medication- lyrica, fentayl patch Hip Pain Score (Numeric/FACES): 9 Lower Back Pain Score (Numeric/FACES): 9 - Related Data Allergies Allergy/AdvReac Type Severity Reaction Status Date / Time amlodipine besylate Allergy Anaphylactic Verified 09/20/17 17:43 [From Norvasc] Shock propoxyphene napsylate Allergy Rash Verified 09/20/17 17:43 [From Darvocet-N 100] acetaminophen [From Percocet] AdvReac Hallucinati Verified 09/20/17 17:43 ons cephalexin [Cephalexin] AdvReac Vomiting Verified 09/20/17 17:43 morphine AdvReac Nausea Verified 09/20/17 17:43 oxycodone [From Percocet] AdvReac Hallucinati Verified 09/20/17 17:43 ons Home Meds: Home Meds Allopurinol [Zyloprim] 150 mg PO BID 02/04/14 [History] Diazepam [Valium] 5 mg PO Q8H 02/04/14 [History] Famotidine [Pepcid] 20 mg PO BID PRN 02/04/14 [History] Omeprazole [Prilosec] 20 mg PO DAILY 02/04/14 [History] Potassium Chloride [Klor-Con 10] 20 meq PO DAILY 02/04/14 [History] Rosuvastatin [Crestor] 20 mg PO DAILY 02/04/14 [History] Valsartan [Diovan] 80 mg PO DAILY 02/04/14 [History] Calcium Carbonate [Tums] 4 tab PO DAILY 02/20/14 [History] Cholecalciferol (Vitamin D3) [Vitamin D3] 4,000 unit PO DAILY 09/01/14 [History] Pregabalin [Lyrica] 150 mg PO BID 09/06/14 [History] Methylcellulose [Citrucel] 1,000 mg PO BID 12/29/14 [History] Acetaminophen [Tylenol] 500 mg PO Q4H PRN 03/14/16 [History] Aspirin [Halfprin] 81 mg PO DAILY 03/14/16 [History] Hydrocortisone [Cortef] 5 mg PO PCDINNER 03/14/16 [History] Hydrocortisone [Cortef] 10 mg PO PCBREAKFAST 03/14/16 [History] PARoxetine HCl [Paxil] 10 mg PO DAILY 03/14/16 [History] Simethicone 125 mg PO BID 03/14/16 [History] B1/B2/Niacin/B12/Protease [B-Complex with B-12 Tablet] 1 each PO DAILY 03/28/16 [History] fentaNYL [Duragesic] 1 patch TD Q48H 03/28/16 [History] traMADol [Ultram] 50 mg PO Q6H PRN 03/28/16 [History] Ferrous Sulfate 325 mg PO DAILY 09/10/16 [History] B2/Vit A,C & E/Lut/Zeaxanth/Mn [Icaps] 1 tab PO BID 01/25/17 [History] Butalbital/Aspirin/Caffeine [Fiorinal 50-325-40 MG] 1 tab PO Q6H PRN 08/26/17 [ History] Lactobacillus Acidophilus [Acidophilus] 1 each PO DAILY 08/26/17 [History] Past Medical History HEENT History: Reports: Hard of Hearing, Impaired Vision Other HEENT History: wears glasses, dentures Cardiovascular History: Reports: Arrhythmia, High Cholesterol, Hypertension, Pacemaker, Other (See Below) Other Cardiovascular History: sick sinus syndrome Respiratory History: Reports: SOB Gastrointestinal History: Reports: Bowel Obstruction, Other (See Below) Other Gastrointestinal History: chronic abd pain Other Genitourinary History: Urinary frequency [employer]ATE[employer] INSIGHT[employer] LEAD History: Reports: None Musculoskeletal History: Reports: Back Pain, Chronic, Fibromyalgia, Osteoarthritis, Other (See Below) Other Musculoskeletal History: carpal tunnel syndrome bilaterally Neurological History: Reports: Headaches, Chronic, Neuropathy, Peripheral, Other (See Below) Other Neuro History: dura-fluid leak with patch Psychiatric History: Reports: Anxiety, Depression, Other (See Below) Other Psychiatric History: chronic pain syndrome, chronic fatigue Endocrine/Metabolic History: Reports: Other (See Below) Other Endocrine/Metabolic History: adrenal insufficiancy Other Hematologic History: hypokalemia Immunologic History: Reports: None Oncologic (Cancer) History: Reports: None - Past Surgical History HEENT Surgical History: Reports: Naso-Sinus Surgery, Tonsillectomy Cardiovascular Surgical History: Reports: Pacer GI Surgical History: Reports: Colon, Colonoscopy, Colostomy, EGD, Other (See Below) Other GI Surgeries/Procedures: colon resection w/ colostomy and reversal Endocrine Surgical History: Reports: Other (See Below) Other Endocrine Surgeries/Procedures: nonfunctioning adrenal gland Neurological Surgical History: Reports: Vertebroplasty Other Neurological Surgeries/Procedures: Nerve block Musculoskeletal Surgical History: Reports: Carpal Tunnel, Hip Replacement, Other (See Below) Other Musculoskeletal Surgeries/Procedures:: 14 back surgeries, ruptured discs, right total hip, right total knee, carpal tunnel procedures, trigger finger procedure Dermatological Surgical History: Reports: Skin Graft Social & Family History - Family History Other HEENT Family History: Pt states daughter is blind in one eye. Cardiac: Reports: CAD, [place] Other Cardiac Family History: Pt states Father @ 53y/o. Oncologic: Reports: Bladder Other Oncologic Family History: Pt states daughter has rare bladder CA and also lost her site in one eye from it. - Tobacco Use Smoking Status *Q: Never Smoker Years of Tobacco use: 2 Used Tobacco, but Quit: No Month Tobacco Last Used: 44 yrs ago Second Hand Smoke Exposure: No - Caffeine Use Caffeine Use: Reports: None - Alcohol Use Days Per Week of Alcohol Use: 0 Number of Drinks Per Day: 0 Total Drinks Per Week: 0 - Recreational Drug Use Recreational Drug Use: No Drug Use in Last 12 Months: No - Living Situation & Occupation Living situation: Reports: with Spouse Review of Systems - Review of Systems Review Of Systems: See Below GI/Abdominal: Reports: Abdominal Pain (lower abdomen). Denies: Diarrhea, Vomiting Musculoskeletal: Reports: Neck Pain, Shoulder Pain (bilateral), Back Pain, Leg Pain (bilateral), Foot Pain (bilateral), Joint Pain (bilateral shoulders), Other (hip pain, bilateral) Neurological: Denies: Headache, Syncope, Difficulty Walking ED EXAM, GENERAL - Physical Exam Exam: See Below Exam Limited By: No Limitations General Appearance: Alert, WD/WN, No Apparent Distress, Thin Eye Exam: Bilateral Eye: Normal Inspection Ears: Normal External Exam Nose: Normal Inspection Throat/Mouth: Normal Inspection, Normal Lips, Normal Oropharynx, Normal Voice, No Airway Compromise Head: Atraumatic, Normocephalic Neck: Normal Inspection, Supple, Non-Tender, Full Range of Motion Respiratory/Chest: No Respiratory Distress, Lungs Clear, Normal Breath Sounds Cardiovascular: Normal Peripheral Pulses, Regular Rate, Rhythm, No Murmur Peripheral Pulses: 2+: Radial (L), Radial (R), Posterior Tibial (L), Posterior Tibial (R), Dorsalis Pedis (L), Dorsalis Pedis (R) GI/Abdominal: Normal Bowel Sounds, Soft, Non-Tender. No: Distended Back Exam: Normal Inspection, Vertebral Tenderness (thoracic spine arouns T3 to the sacrum) Extremities: Normal Inspection, Normal Range of Motion, Normal Capillary Refill , Other (reports tendernes to palpations to the bilteral shoulder, bilateral hips, bilteral legs and feet) Neurological: Alert, Oriented, Normal Cognition Psychiatric: Anxious Skin Exam: Warm, Dry, Normal Color. No: Ecchymosis Course - Vital Signs Last Recorded V/S: Last Vital Signs Temp 36.3 C 09/20/17 17:43 Pulse 75 09/20/17 17:43 Resp 16 09/20/17 17:43 BP 159/79 H 09/20/17 17:43 Pulse Ox 94 L 09/20/17 17:43 - Orders/Labs/Meds Meds: Medications Discontinued Medications Generic Name Dose Route Start Last Admin Trade Name Freq PRN Reason Stop Dose Admin Hydromorphone HCl 1 mg 09/20/17 20:31 09/20/17 20:38 Dilaudid IM 09/20/17 20:32 1 mg ONETIME ONE Administration - Radiology Interpretation Free Text/Narrative:: xray of the bilateral feet shows no acute fractures or dislocations. Xray of the pelvis shows a right hip prosthesis. degenerative change o the left hip. No acute fractures or dislocations. xray of the lumbar spine shows no acute fractures or dislocations xray of the thoracic spine shows no acute fractures or dislocations. - Re-Assessments/Exams Free Text/Narrative Re-Assessment/Exam: 09/20/17 18:48 While I do feel it is unlikely Keshawn has broken anything, he is very adamant about the pain. Likely flared his fibromyalgia. Will obtain xray of the thoracic , lumbar, feet and hips. 09/20/17 20:30 Discussed xray results with Keshawn and his . Will give a shot of Dilaudid her for acute pain relief. He does have pain medication at home. Will discharge home with instructions to follow-up with PCP this week. Discharge instructions as documented. Departure - Departure Time of Disposition: 20:32 Disposition: Home, Self-Care 01 Condition: Fair Clinical Impression: Fibromyalgia - Discharge Information Instructions: Chronic Pain Referrals: Christofer Macdonald MD [Primary Care Provider] - Forms: ED Department Discharge Additional Instructions: Continue with your current plan of care. Follow-up with your primary care provider for recheck of your symptoms next week. Please return to the ER if your symptoms change or worsen.
--- NOTE | 2017-09-23 08:33 | CR ---
Lumbar spine: AP, lateral and coned-down lateral views centered to the lumbosacral junction were obtained. Comparison: Previous lumbar spine exam of 05/09/13. Severe disc space narrowing is noted at L5-S1 with vacuum phenomena. This is an interval change from previous exam. Other disc spaces are maintained. Minimal compression deformity of T12 is seen which is believed to be old. Vertebral body heights otherwise are preserved. Minimal scattered endplate osteophytes are seen. Previous laminectomy noted at L4 and L5. Pedicles as well as visualized transverse and spinous processes are intact. Impression: 1. Degenerative change as noted above. Previous laminectomy. 2. Slight compression deformity at T12 believed to be old. 3. Nothing acute is appreciated. Diagnostic code #2
--- NOTE | 2017-09-23 08:33 | CR ---
Left foot: Two views of the left foot were obtained. Comparison: No prior foot exam. Vascular calcification is noted. Bony structures are slightly osteopenic. No discrete fracture or other bony abnormality is appreciated. Impression: 1. Incidental findings as noted above. Nothing acute is appreciated on two-view left foot exam. Diagnostic code #2
--- NOTE | 2017-09-23 08:33 | CR ---
Thoracic spine: AP and lateral views of the thoracic spine were obtained. Comparison: No prior thoracic spine exam. Vertebral body heights and disc spaces are maintained. Pedicles are intact. No discrete fracture or abnormal subluxation is seen. Impression: 1. No abnormality is seen on two-view thoracic spine exam. Diagnostic code #1
--- NOTE | 2017-09-23 08:33 | CR ---
Right foot: Two views of the right foot were obtained. Comparison: No prior foot exam. Mild vascular calcification is seen. Bony structures are osteopenic. No discrete fracture or other bony abnormality is identified. Impression: 1. Incidental findings. Nothing acute is appreciated on two-view right foot study. Diagnostic code #2
--- NOTE | 2017-09-23 08:33 | CR ---
Pelvis: AP view of the pelvis was obtained. Comparison: Previous pelvis exam of 09/14/16. Stable appearing right hip prosthesis is noted. Lucency and mild sclerosis are seen within the left femoral head which appear as a stable finding. Minimal joint space narrowing is noted within the left hip. Bony structures are somewhat osteopenic. Previous laminectomy is noted at L4-L5. Small bone island is noted above the left hip within the left iliac bone. Vascular calcification is seen. Small fracture is identified within the superior femoral head which appears stable from prior exam. No acute abnormality is seen. Impression: 1. Findings as noted above. Nothing acute is appreciated on AP pelvis study. Diagnostic code #2
== END 2017-09-20 20:45 | disposition home or self-care (01) ==
LOC: JD.ED 17:18
DX: M79.7 Fibromyalgia (principal); I10 Essential (primary) hypertension; E78.00 Pure hypercholesterolemia, unspecified; F32.9 Major depressive disorder, single episode, unspecified; Z96.641 Presence of right artificial hip joint; Z96.651 Presence of right artificial knee joint; Z95.0 Presence of cardiac pacemaker; Z79.82 Long term (current) use of aspirin; Z79.899 Other long term (current) drug therapy; Z88.1 Allergy status to other antibiotic agents; Z88.5 Allergy status to narcotic agent; Z88.6 Allergy status to analgesic agent; Z88.8 Allergy status to other drugs, medicaments and biological substances
CPT/HCPCS: 72070; 72100; 72170; 73620; 96372; 99283; J1170

== ENCOUNTER 2017-11-01 20:02 | Emergency (ER) | payer MEDICARE, OTHER ==
[2017-11-01 20:13] VITALS: BP 201/101
[2017-11-01] MEDS ORDERED: Sodium Chloride 0.9% 10 ML Syringe FLUSH PRN ×2 (21:19→22:45)
[2017-11-01] MEDS ORDERED: HYDROmorphone 1 MG/ML Syringe IVPUSH ONE ×2 (21:21→23:25)
[2017-11-01] MEDS ORDERED: Ondansetron 4 MG/2 ML SDV IVPUSH ONE (21:21)
--- NOTE | 2017-11-01 22:41 | EDM.PDOC ---
ED HPI GENERAL MEDICAL PROBLEM - General Chief Complaint: Abdominal Pain Stated Complaint: ABDOMINAL PAIN Time Seen by Provider: 11/01/17 20:50 Source of Information: Reports: Patient, Old Records, Provider History Limitations: Reports: No Limitations - History of Present Illness INITIAL COMMENTS - FREE TEXT/NARRATIVE: 66-year-old male presents for evaluation and treatment of abdominal pain. Patient presented to the [facility] walk-in clinic earlier today. Provider was concerned about bowel obstruction. She obtained labs and a x-ray and send him over to us for a CT. Patient reports generalized abdominal pain that started on Saturday. States pain is primarily in the lower abdomen but states his entire abdomen is involved. Reports decreased flatus and feelings of being bloated. Reports that he normally has soft, easily passable bowel movements. He had a harder stool on Saturday. Reports he to strain to pass the stool. No bowel movement since Saturday. Associated symptoms of nausea but no vomiting. Patient had a flat and upright abdominal x-ray performed at the clinic as well as a CBC, CMP and UA. Impression on the flat plate shows prominent gaseous distention of the descending transverse colon with relatively possibly of gas in the descending and rectosigmoid colon. Findings could be seen in the setting of a more distal obstruction. Postoperative changes within the right lower quadrant and left lower quadrant. Cardiac pacer. Right HIREN. 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 This appears to progress since 08/26/17. Labs from [facility] include the following: UA is negative for glucose, bilirubin, ketones, blood, nitrates and leukocytes. CMP has a sodium of 125, chloride of 86 , potassium of 4.6, creatinine 0.7. Glucose 88. Anion gap 17. CBC has a white blood cell count of 5.5, hemoglobin of 14.5, hematocrit 40.9, platelets of 184. Lower Abdomen Pain Score (Numeric/FACES): 8 - Related Data Allergies Allergy/AdvReac Type Severity Reaction Status Date / Time amlodipine besylate Allergy Anaphylactic Verified 09/20/17 17:43 [From Norvasc] Shock propoxyphene napsylate Allergy Rash Verified 09/20/17 17:43 [From Darvocet-N 100] acetaminophen [From Percocet] AdvReac Hallucinati Verified 09/20/17 17:43 ons cephalexin [Cephalexin] AdvReac Vomiting Verified 09/20/17 17:43 morphine AdvReac Nausea Verified 09/20/17 17:43 oxycodone [From Percocet] AdvReac Hallucinati Verified 09/20/17 17:43 ons Home Meds: Home Meds Allopurinol [Zyloprim] 150 mg PO BID 02/04/14 [History] Diazepam [Valium] 5 mg PO Q8H 02/04/14 [History] Famotidine [Pepcid] 20 mg PO BID PRN 02/04/14 [History] Omeprazole [Prilosec] 20 mg PO DAILY 02/04/14 [History] Potassium Chloride [Klor-Con 10] 20 meq PO DAILY 02/04/14 [History] Rosuvastatin [Crestor] 20 mg PO DAILY 02/04/14 [History] Valsartan [Diovan] 80 mg PO DAILY 02/04/14 [History] Calcium Carbonate [Tums] 4 tab PO DAILY 02/20/14 [History] Cholecalciferol (Vitamin D3) [Vitamin D3] 4,000 unit PO DAILY 09/01/14 [History] Pregabalin [Lyrica] 150 mg PO BID 09/06/14 [History] Methylcellulose [Citrucel] 1,000 mg PO BID 12/29/14 [History] Acetaminophen [Tylenol] 500 mg PO Q4H PRN 03/14/16 [History] Aspirin [Halfprin] 81 mg PO DAILY 03/14/16 [History] Hydrocortisone [Cortef] 5 mg PO PCDINNER 03/14/16 [History] Hydrocortisone [Cortef] 10 mg PO PCBREAKFAST 03/14/16 [History] PARoxetine HCl [Paxil] 10 mg PO DAILY 03/14/16 [History] Simethicone 125 mg PO BID 03/14/16 [History] B1/B2/Niacin/B12/Protease [B-Complex with B-12 Tablet] 1 each PO DAILY 03/28/16 [History] fentaNYL [Duragesic] 1 patch TD Q48H 03/28/16 [History] traMADol [Ultram] 50 mg PO Q6H PRN 03/28/16 [History] Ferrous Sulfate 325 mg PO DAILY 09/10/16 [History] B2/Vit A,C & E/Lut/Zeaxanth/Mn [Icaps] 1 tab PO BID 01/25/17 [History] Butalbital/Aspirin/Caffeine [Fiorinal 50-325-40 MG] 1 tab PO Q6H PRN 08/26/17 [ History] Lactobacillus Acidophilus [Acidophilus] 1 each PO DAILY 08/26/17 [History] Past Medical History HEENT History: Reports: Hard of Hearing, Impaired Vision Other HEENT History: wears glasses, dentures Cardiovascular History: Reports: Arrhythmia, High Cholesterol, Hypertension, Pacemaker, Other (See Below) Other Cardiovascular History: sick sinus syndrome Respiratory History: Reports: SOB Gastrointestinal History: Reports: Bowel Obstruction, Other (See Below) Other Gastrointestinal History: chronic abd pain Other Genitourinary History: Urinary frequency [employer] History: Reports: None Musculoskeletal History: Reports: Back Pain, Chronic, Fibromyalgia, Osteoarthritis, Other (See Below) Other Musculoskeletal History: carpal tunnel syndrome bilaterally Neurological History: Reports: Headaches, Chronic, Neuropathy, Peripheral, Other (See Below) Other Neuro History: dura-fluid leak with patch Psychiatric History: Reports: Anxiety, Depression, Other (See Below) Other Psychiatric History: chronic pain syndrome, chronic fatigue Endocrine/Metabolic History: Reports: Other (See Below) Other Endocrine/Metabolic History: adrenal insufficiancy Other Hematologic History: hypokalemia Immunologic History: Reports: None Oncologic (Cancer) History: Reports: None - Past Surgical History HEENT Surgical History: Reports: Naso-Sinus Surgery, Tonsillectomy Cardiovascular Surgical History: Reports: Pacer GI Surgical History: Reports: Colon, Colonoscopy, Colostomy, EGD, Other (See Below) Other GI Surgeries/Procedures: colon resection w/ colostomy and reversal Endocrine Surgical History: Reports: Other (See Below) Other Endocrine Surgeries/Procedures: nonfunctioning adrenal gland Neurological Surgical History: Reports: Vertebroplasty Other Neurological Surgeries/Procedures: Nerve block Musculoskeletal Surgical History: Reports: Carpal Tunnel, Hip Replacement, Other (See Below) Other Musculoskeletal Surgeries/Procedures:: 14 back surgeries, ruptured discs, right total hip, right total knee, carpal tunnel procedures, trigger finger procedure Dermatological Surgical History: Reports: Skin Graft Social & Family History - Family History Other HEENT Family History: Pt states daughter is blind in one eye. Cardiac: Reports: CAD, [place] Other Cardiac Family History: Pt states Father @ 53y/o. Oncologic: Reports: Bladder Other Oncologic Family History: Pt states daughter has rare bladder CA and also lost her site in one eye from it. - Tobacco Use Smoking Status *Q: Never Smoker Years of Tobacco use: 2 Used Tobacco, but Quit: No Month Tobacco Last Used: 44 yrs ago Second Hand Smoke Exposure: No - Caffeine Use Caffeine Use: Reports: None - Alcohol Use Days Per Week of Alcohol Use: 0 Number of Drinks Per Day: 0 Total Drinks Per Week: 0 - Recreational Drug Use Recreational Drug Use: No Drug Use in Last 12 Months: No - Living Situation & Occupation Living situation: Reports: with Spouse ED ROS GENERAL - Review of Systems Review Of Systems: See Below Constitutional: Reports: Malaise GI/Abdominal: Reports: Abdominal Pain, Constipation, Nausea. Denies: Vomiting : Reports: No Symptoms ED EXAM, GI/ABD - Physical Exam Exam: See Below Exam Limited By: No Limitations General Appearance: Alert, WD/WN, No Apparent Distress (chronicall ill) Respiratory/Chest: No Respiratory Distress, Lungs Clear, Normal Breath Sounds Cardiovascular: Normal Peripheral Pulses, Regular Rate, Rhythm, No Murmur GI/Abdominal Exam: Normal Bowel Sounds, Distended (mild), Tender (generalized). No: Guarding, Rigid Neurological: Alert, Oriented, Normal Cognition Psychiatric: Anxious Skin Exam: Warm, Dry, Normal Color Course - Vital Signs Last Recorded V/S: Last Vital Signs Temp 35.7 C 11/01/17 20:11 Pulse 73 11/01/17 20:11 Resp 20 11/01/17 20:11 BP 201/101 H 11/01/17 20:11 Pulse Ox 99 11/01/17 20:11 - Orders/Labs/Meds Labs: Laboratory Tests 11/01/17 Range/Units 21:43 Lipase 74 (73-393) U/L Meds: Medications Discontinued Medications Generic Name Dose Route Start Last Admin Trade Name Freq PRN Reason Stop Dose Admin Diatrizoate Meglum/Diatrizoate Sod 90 ml 11/01/17 22:45 11/01/17 23:05 Gastrografin 37% PO 11/01/17 22:46 90 ml ONETIME ONE Administration Hydromorphone HCl 1 mg 11/01/17 21:21 11/01/17 21:48 Dilaudid IVPUSH 11/01/17 21:22 1 mg ONETIME ONE Administration Hydromorphone HCl 1 mg 11/01/17 23:25 11/01/17 23:31 Dilaudid IVPUSH 11/01/17 23:26 1 mg ONETIME ONE Administration Iopamidol 125 ml 11/01/17 22:45 11/01/17 23:05 Isovue-300 (61%) IVPUSH 11/01/17 22:46 125 ml ONETIME ONE Administration Ondansetron HCl 4 mg 11/01/17 21:21 11/01/17 21:48 Zofran IVPUSH 11/01/17 21:22 4 mg ONETIME ONE Administration Sodium Chloride 10 ml 11/01/17 21:19 11/01/17 21:51 Saline Flush FLUSH 10 ml ASDIRECTED PRN Administration Keep Vein Open Sodium Chloride 10 ml 11/01/17 22:45 11/01/17 23:05 Saline Flush FLUSH 10 ml ONETIME PRN Administration IV FLUSH - Radiology Interpretation Free Text/Narrative:: CT of the abdomen and pelvis impression per vrad: No acute findings or interval changes. Somewhat prominent gas-filled loops of distal small bowel could represent ileus but I suspect this is just a normal variant for this postoperative patient as it has been seen on multiple CT scans pain back to 2013. - Re-Assessments/Exams Free Text/Narrative Re-Assessment/Exam: 11/01/17 23:[address] results with the patient. Patient's blood pressure has come down significantly with pain medication. Walk in clinic provider set him up with GI for consultation. I feel this is appropriate. I recommend he continue with his current plan of care. Follow-up with his primary care provider as needed the meantime and follow-up with GI as planned. Discharge instructions as documented. Departure - Departure Time of Disposition: 00:15 Disposition: Home, Self-Care 01 Condition: Fair Clinical Impression: Abdominal pain, Pain, Hyponatremia - Discharge Information Instructions: Hyponatremia, Abdominal Pain, Adult, [id number] Referrals: Christofer Macdonald MD [Primary Care Provider] - Forms: ED Department Discharge Additional Instructions: Continue with your current plan of care. see GI as planned. Recommend increasing your salt intake as your sodium was low today. Recommend Gatorade, Powerade, tomato juice etc. you may increase your salt intake. Follow-up with your primary care provider soon as you're able to. Please return to the ER if symptoms change or worsen.
[2017-11-01] MEDS ORDERED: Diatrizoate Meglumine/Diatrizoate Sodium 37% 120 ML Bottle PO ONE (22:45)
[2017-11-01] MEDS ORDERED: Iopamidol 612 MG/ML 150 ML Bottle IVPUSH ONE (22:45)
--- NOTE | 2017-11-02 14:06 | CT ---
CT abdomen and pelvis Technique: Multiple axial sections were obtained from above the dome of the diaphragm inferiorly through the pubic symphysis. Intravenous and oral contrast has been given. Delayed images were obtained through the pelvis. Comparison: Prior CT abdomen and pelvis exam of 08/26/17 is available. Findings: Visualized lung bases show nothing acute. Liver shows no focal parenchymal abnormality. Gallbladder is somewhat distended most likely incidental as no surrounding inflammatory change is seen. Pancreas is within normal limits. Kidneys show symmetric contrast enhancement. Cyst is identified within the upper left kidney measuring 2.7 cm. Small cortical cyst is noted within the right kidney measuring less than 1 cm. Delayed images show contrast excretion into both ureters as well as contrast being seen within the bladder. Adrenal glands show no nodule. Aorta shows mild atherosclerotic change without aneurysmal dilatation. No retroperitoneal adenopathy or mesenteric abnormalities are seen. No pelvic mass or adenopathy is identified. Artifact is noted from right hip prosthesis. Distal small bowel loops are slightly prominent in size which is believed to be incidental and due to hypertonic effect of contrast. Nothing is seen to indicate bowel obstruction. Degenerative change is noted within the spine with epidural air being seen at L5-S1 compatible with vacuum phenomena within the disc and annular rupture. Previous surgery is noted with posterior laminectomy at L4-L5 and L5-S1. Bladder is dilated and urine filled. Impression: 1. Mildly dilated urine filled bladder. Please correlate if patient has any symptoms to suggest bladder outlet obstruction. 2. Dilated gallbladder which is felt to be incidental. 3. Mildly dilated distal small bowel loops which is felt to represent hypertonic effect of contrast with nothing seen to indicate bowel obstruction at this time. 4. Other incidental findings. Diagnostic code #3 Agree with preliminary report issued by [employer] ([facility] preliminary report dictated on 11/02/17, 12:36 AM Central Time)
== END 2017-11-02 00:25 | disposition home or self-care (01) ==
LOC: JD.ED 20:02
DX: R10.84 Generalized abdominal pain (principal); E87.1 Hypo-osmolality and hyponatremia; I10 Essential (primary) hypertension; E78.00 Pure hypercholesterolemia, unspecified; Z88.5 Allergy status to narcotic agent; Z79.82 Long term (current) use of aspirin; Z90.49 Acquired absence of other specified parts of digestive tract; Z72.0 Tobacco use; Z79.899 Other long term (current) drug therapy; Z88.1 Allergy status to other antibiotic agents; Z88.6 Allergy status to analgesic agent; Z88.8 Allergy status to other drugs, medicaments and biological substances
CPT/HCPCS: 36415; 74177; 83690; 96374; 96375; 96376; 99284; J1170; J2405; J7050; Q9963; Q9967

== ENCOUNTER 2017-11-26 05:43 | Emergency (ER) | payer MEDICARE, OTHER ==
[2017-11-26 05:52] VITALS: BP 139/86
[2017-11-26] MEDS ORDERED: Sodium Chloride 0.9% 10 ML Syringe FLUSH PRN (06:15)
[2017-11-26] MEDS ORDERED: Sodium Chloride 0.9% 1,000 ML IV STA (06:15)
[2017-11-26] MEDS ORDERED: HYDROmorphone 1 MG/ML Syringe IVPUSH ONE (06:16)
--- NOTE | 2017-11-26 06:33 | EDM.PDOC ---
ED HPI GENERAL MEDICAL PROBLEM - General Chief Complaint: Gastrointestinal Problem Stated Complaint: BURNING STOMACH/BACK/HEADACHE Time Seen by Provider: 11/26/17 05:58 Source of Information: Reports: Patient History Limitations: Reports: No Limitations - History of Present Illness INITIAL COMMENTS - FREE TEXT/NARRATIVE: The patient present with burning generalized pain. This started this weekend. It hurts every where. The pain is burning. Nothing makes it worse and nothing makes it better. He has no headache or chest pain. He has no dysuria. He has no fever, chills or cough. He has had this pain before. He also has irregular bowel movement. This has been a major problem in the past where he had chronic constipation that lead to bowel resection. He did good for a number of years but now he is having more troubles. He is scheduled to see a GI specialist soon. Onset: Gradual Duration: Day(s): Location: Reports: Generalized Quality: Reports: Burning Severity: Severe Improves with: Reports: None Worsens with: Reports: None Associated Symptoms: Denies: Chest Pain, Cough, Fever/Chills, Headaches, Nausea/ Vomiting, Shortness of Breath Abdominal Pain Score (Numeric/FACES): 10 - Related Data Allergies Allergy/AdvReac Type Severity Reaction Status Date / Time amlodipine besylate Allergy Anaphylactic Verified 11/26/17 05:53 [From Norvasc] Shock propoxyphene napsylate Allergy Rash Verified 11/26/17 05:53 [From Darvocet-N 100] acetaminophen [From Percocet] AdvReac Hallucinati Verified 11/26/17 05:53 ons cephalexin [Cephalexin] AdvReac Vomiting Verified 11/26/17 05:53 morphine AdvReac Nausea Verified 11/26/17 05:53 oxycodone [From Percocet] AdvReac Hallucinati Verified 11/26/17 05:53 ons Home Meds: Home Meds Allopurinol [Zyloprim] 150 mg PO BID 02/04/14 [History] Diazepam [Valium] 5 mg PO Q8H 02/04/14 [History] Famotidine [Pepcid] 20 mg PO BID PRN 02/04/14 [History] Omeprazole [Prilosec] 20 mg PO DAILY 02/04/14 [History] Potassium Chloride [Klor-Con 10] 20 meq PO DAILY 02/04/14 [History] Rosuvastatin [Crestor] 20 mg PO DAILY 02/04/14 [History] Valsartan [Diovan] 80 mg PO DAILY 02/04/14 [History] Calcium Carbonate [Tums] 4 tab PO DAILY 02/20/14 [History] Cholecalciferol (Vitamin D3) [Vitamin D3] 4,000 unit PO DAILY 09/01/14 [History] Pregabalin [Lyrica] 150 mg PO BID 09/06/14 [History] Methylcellulose [Citrucel] 1,000 mg PO BID 12/29/14 [History] Acetaminophen [Tylenol] 500 mg PO Q4H PRN 03/14/16 [History] Aspirin [Halfprin] 81 mg PO DAILY 03/14/16 [History] Hydrocortisone [Cortef] 5 mg PO PCDINNER 03/14/16 [History] Hydrocortisone [Cortef] 10 mg PO PCBREAKFAST 03/14/16 [History] PARoxetine HCl [Paxil] 10 mg PO DAILY 03/14/16 [History] Simethicone 125 mg PO BID 03/14/16 [History] B1/B2/Niacin/B12/Protease [B-Complex with B-12 Tablet] 1 each PO DAILY 03/28/16 [History] fentaNYL [Duragesic] 1 patch TD Q48H 03/28/16 [History] traMADol [Ultram] 50 mg PO Q6H PRN 03/28/16 [History] Ferrous Sulfate 325 mg PO DAILY 09/10/16 [History] B2/Vit A,C & E/Lut/Zeaxanth/Mn [Icaps] 1 tab PO BID 01/25/17 [History] Butalbital/Aspirin/Caffeine [Fiorinal 50-325-40 MG] 1 tab PO Q6H PRN 08/26/17 [ History] Lactobacillus Acidophilus [Acidophilus] 1 each PO DAILY 08/26/17 [History] Past Medical History HEENT History: Reports: Hard of Hearing, Impaired Vision Other HEENT History: wears glasses, dentures Cardiovascular History: Reports: Arrhythmia, High Cholesterol, Hypertension, Pacemaker, Other (See Below) Other Cardiovascular History: sick sinus syndrome Respiratory History: Reports: SOB Gastrointestinal History: Reports: Bowel Obstruction, Other (See Below) Other Gastrointestinal History: chronic abd pain Other Genitourinary History: Urinary frequency [employer] History: Reports: None Musculoskeletal History: Reports: Back Pain, Chronic, Fibromyalgia, Osteoarthritis, Other (See Below) Other Musculoskeletal History: carpal tunnel syndrome bilaterally Neurological History: Reports: Headaches, Chronic, Neuropathy, Peripheral, Other (See Below) Other Neuro History: dura-fluid leak with patch Psychiatric History: Reports: Anxiety, Depression, Other (See Below) Other Psychiatric History: chronic pain syndrome, chronic fatigue Endocrine/Metabolic History: Reports: Other (See Below) Other Endocrine/Metabolic History: adrenal insufficiancy Other Hematologic History: hypokalemia Immunologic History: Reports: None Oncologic (Cancer) History: Reports: None - Past Surgical History HEENT Surgical History: Reports: Naso-Sinus Surgery, Tonsillectomy Cardiovascular Surgical History: Reports: Pacer GI Surgical History: Reports: Colon, Colonoscopy, Colostomy, EGD, Other (See Below) Other GI Surgeries/Procedures: colon resection w/ colostomy and reversal Endocrine Surgical History: Reports: Other (See Below) Other Endocrine Surgeries/Procedures: nonfunctioning adrenal gland Neurological Surgical History: Reports: Vertebroplasty Other Neurological Surgeries/Procedures: Nerve block Musculoskeletal Surgical History: Reports: Carpal Tunnel, Hip Replacement, Other (See Below) Other Musculoskeletal Surgeries/Procedures:: 14 back surgeries, ruptured discs, right total hip, right total knee, carpal tunnel procedures, trigger finger procedure Dermatological Surgical History: Reports: Skin Graft Social & Family History - Family History Other HEENT Family History: Pt states daughter is blind in one eye. Cardiac: Reports: CAD, [place] Other Cardiac Family History: Pt states Father @ 53y/o. Oncologic: Reports: Bladder Other Oncologic Family History: Pt states daughter has rare bladder CA and also lost her site in one eye from it. - Tobacco Use Smoking Status *Q: Never Smoker Years of Tobacco use: 2 Used Tobacco, but Quit: No Month Tobacco Last Used: 44 yrs ago Second Hand Smoke Exposure: No - Caffeine Use Caffeine Use: Reports: None - Alcohol Use Days Per Week of Alcohol Use: 0 Number of Drinks Per Day: 0 Total Drinks Per Week: 0 - Recreational Drug Use Recreational Drug Use: No Drug Use in Last 12 Months: No - Living Situation & Occupation Living situation: Reports: with Spouse ED ROS GENERAL - Review of Systems Review Of Systems: See Below Constitutional: Reports: No Symptoms HEENT: Reports: No Symptoms Respiratory: Reports: No Symptoms Cardiovascular: Reports: No Symptoms Endocrine: Reports: No Symptoms GI/Abdominal: Reports: Abdominal Pain : Reports: No Symptoms Musculoskeletal: Reports: Muscle Pain ED EXAM, GI/ABD - Physical Exam Exam: See Below Exam Limited By: No Limitations General Appearance: Alert, No Apparent Distress Ears: Normal External Exam Nose: Normal Inspection Head: Atraumatic, Normocephalic Neck: Normal Inspection Respiratory/Chest: No Respiratory Distress, Lungs Clear, Normal Breath Sounds Cardiovascular: Regular Rate, Rhythm, No Edema, No Murmur GI/Abdominal Exam: Soft, Non-Tender, No Organomegaly, No Mass Back Exam: Normal Inspection Extremities: Normal Inspection Course - Vital Signs Last Recorded V/S: Last Vital Signs Temp 97.1 F 11/26/17 05:49 Pulse 75 11/26/17 05:49 Resp 18 11/26/17 05:49 BP 139/86 11/26/17 05:49 Pulse Ox 97 11/26/17 05:49 - Orders/Labs/Meds Orders: Active Orders 24 hr Category Date Time Status Peripheral IV Care [RC] . DIRECTED Care 11/26/17 06:16 Active Sodium Chloride 0.9% [Saline Flush] Med 11/26/17 06:15 Active 10 ml FLUSH ASDIRECTED PRN Peripheral IV Insertion Adult [OM.PC] Stat Oth 11/26/17 06:15 Ordered Medication Orders Sodium Chloride (Saline Flush) 10 ml FLUSH ASDIRECTED PRN PRN Reason: Keep Vein Open Last Admin: 11/26/17 07:38 Dose: 10 ml Labs: Laboratory Tests 11/26/17 11/26/17 Range/Units 06:50 06:50 WBC 4.09 L (4.23-9.07) K/mm3 RBC 4.78 (4.63-6.08) M/mm3 Hgb 14.5 (13.7-17.5) gm/L Hct 41.2 (40.1-51.0) % MCV 86.2 (79.0-92.2) fl MCH 30.3 (25.7-32.2) pg MCHC 35.2 (32.2-35.5) g/dl RDW Std Deviation 41.5 (35.1-43.9) fL Plt Count 152 L (163-337) K/mm3 MPV 9.6 (9.4-12.3) fl Neut % (Auto) 51.4 (34.0-67.9) % Lymph % (Auto) 37.2 (21.8-53.1) % [place] % (Auto) 9.0 (5.3-12.2) % Eos % (Auto) 1.7 (0.8-7.0) Baso % (Auto) 0.7 (0.1-1.2) % Neut # (Auto) 2.10 (1.78-5.38) K/mm3 Lymph # (Auto) 1.52 (1.32-3.57) K/mm3 Winston # (Auto) 0.37 (0.30-0.82) K/mm3 Eos # (Auto) 0.07 (0.04-0.54) K/mm3 Baso # (Auto) 0.03 (0.01-0.08) K/mm3 Sodium 133 L (136-145) mEq/L Potassium 3.5 (3.5-5.1) mEq/L Chloride 95 L (98-107) mEq/L Carbon Dioxide 27 (21-32) mEq/L Anion Gap 14.5 (5-15) BUN 8 (7-18) mg/dL Creatinine 0.8 (0.7-1.3) mg/dL Est Cr Clr Drug Dosing 88.38 mL/min Estimated GFR (MDRD) > 60 (>60) mL/min BUN/Creatinine Ratio 10.0 L (14-18) Glucose 102 (80-115) mg/dL Calcium 9.1 (8.5-10.1) mg/dL Magnesium 1.9 (1.8-2.4) mg/dl Total Bilirubin 0.3 (0.2-1.0) mg/dL AST 21 (15-37) U/L ALT 29 (16-63) U/L Alkaline Phosphatase 119 H (46-116) U/L Total Protein 7.1 (6.4-8.2) g/dl Albumin 4.0 (3.4-5.0) g/dl Globulin 3.1 gm/dL Albumin/Globulin Ratio 1.3 (1-2) Meds: Medications Generic Name Dose Route Start Last Admin Trade Name Freq PRN Reason Stop Dose Admin Sodium Chloride 10 ml 11/26/17 06:15 11/26/17 07:38 Saline Flush FLUSH 10 ml ASDIRECTED PRN Administration Keep Vein Open Discontinued Medications Generic Name Dose Route Start Last Admin Trade Name Desire PRN Reason Stop Dose Admin Hydromorphone HCl 1 mg 11/26/17 06:16 11/26/17 08:05 Dilaudid IVPUSH 11/26/17 06:17 Not Given ONETIME ONE Hydromorphone HCl 1 mg 11/26/17 07:05 11/26/17 07:31 Dilaudid IVPUSH 11/26/17 07:06 1 mg ONETIME ONE Administration Hydromorphone HCl 0.5 mg 11/26/17 08:00 Dilaudid IVPUSH 11/26/17 08:01 ONETIME ONE Sodium Chloride 1,000 mls @ 1,000 mls/hr 11/26/17 06:15 11/26/17 07:08 Normal Saline IV 11/26/17 07:14 1,000 mls/hr .BOLUS STA Administration - Re-Assessments/Exams Free Text/Narrative Re-Assessment/Exam: 11/26/17 06:33 I ordered an IV NS 1L bolus, dilaudid 1mg IV, and labs. 11/26/17 08:06 His WBC was a little low at 4.09. His Na was low at 133. His Alk Phos was a little elevated at 119. He feels better. I will give him another dose of pain meds and discharge him home. Departure - Departure Time of Disposition: 08:10 Disposition: Home, Self-Care 01 Condition: Good Clinical Impression: Burning pain - Discharge Information Referrals: Christofer Macdonald MD [Primary Care Provider] - 1 Week Forms: ED Department Discharge Additional Instructions: Continue taking your medication as prescribed. Follow up with Dr Macdonald and your GI specialist. Please return if you are worse. - My Orders Last 24 Hours: My Active Orders 11/26/17 06:15 Sodium Chloride 0.9% [Saline Flush] 10 ml FLUSH ASDIRECTED PRN Peripheral IV Insertion Adult [OM.PC] Stat 11/26/17 06:16 Peripheral IV Care [RC] . DIRECTED - Assessment/Plan Last 24 Hours: My Active Orders 11/26/17 06:15 Sodium Chloride 0.9% [Saline Flush] 10 ml FLUSH ASDIRECTED PRN Peripheral IV Insertion Adult [OM.PC] Stat 11/26/17 06:16 Peripheral IV Care [RC] . DIRECTED
[2017-11-26] MEDS ORDERED: HYDROmorphone 0.5 MG/0.5 ML SYRINGE IVPUSH ONE ×2 (07:05→08:00)
== END 2017-11-26 08:50 | disposition home or self-care (01) ==
LOC: JD.ED 05:43
DX: R10.9 Unspecified abdominal pain (principal); I10 Essential (primary) hypertension; E78.00 Pure hypercholesterolemia, unspecified; F32.9 Major depressive disorder, single episode, unspecified; Z95.0 Presence of cardiac pacemaker; Z98.890 Other specified postprocedural states; Z72.0 Tobacco use; Z79.82 Long term (current) use of aspirin; Z79.899 Other long term (current) drug therapy; Z88.1 Allergy status to other antibiotic agents; Z88.5 Allergy status to narcotic agent; Z88.6 Allergy status to analgesic agent; Z88.8 Allergy status to other drugs, medicaments and biological substances
CPT/HCPCS: 36415; 80053; 81001; 83735; 85025; 96361; 96374; 96376; 99284; J1170; J7040; J7050

== ENCOUNTER 2017-12-18 15:26 | Emergency (ER) | payer MEDICARE, OTHER ==
[2017-12-18 15:40] VITALS: BP 174/96
[2017-12-18] MEDS ORDERED: Sodium Chloride 0.9% 1,000 ML IV ONE (15:51)
[2017-12-18] MEDS ORDERED: Sodium Chloride 0.9% 10 ML Syringe FLUSH PRN (15:51)
[2017-12-18] MEDS ORDERED: Ondansetron 4 MG/2 ML SDV IVPUSH ONE (15:52)
[2017-12-18] MEDS ORDERED: HYDROmorphone 1 MG/ML Syringe IVPUSH ONE (15:52)
[2017-12-18] MEDS ORDERED: HYDROmorphone 0.5 MG/0.5 ML SYRINGE IVPUSH ONE ×2 (16:05→17:20)
--- NOTE | 2017-12-18 16:38 | EDM.PDOC ---
ED HPI GENERAL MEDICAL PROBLEM - General Chief Complaint: General Stated Complaint: ALL OVER PAIN Time Seen by Provider: 12/18/17 15:37 Source of Information: Reports: Patient History Limitations: Reports: No Limitations - History of Present Illness INITIAL COMMENTS - FREE TEXT/NARRATIVE: Patient is a 66-year-old male with a history of fibromyalgia on chronic pain management who presents to the ED complaining of burning pain to his back, arms , legs, and abdomen. Pain is consistent with previous episodes of flareup of the fibromyalgia. He takes Lyrica, fentanyl patch, and tramadol with minimal relief as of recent. He has been seen in the ED in the past and received IV Dilaudid with IV fluids with some relief. He sees his primary care provider 27 of December to discuss further pain management options. In addition fentanyl patch is supposed to be change this evening. Symptoms are similar to previous episodes. There has been no documented fever, chest pain, shortness of breath, nausea/vomiting, dysuria, rash, or any additional complaints. 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 Generalized Pain Score (Numeric/FACES): 10 - Related Data Allergies Allergy/AdvReac Type Severity Reaction Status Date / Time amlodipine besylate Allergy Anaphylactic Verified 12/18/17 15:40 [From Norvasc] Shock propoxyphene napsylate Allergy Rash Verified 12/18/17 15:40 [From Darvocet-N 100] acetaminophen [From Percocet] AdvReac Hallucinati Verified 12/18/17 15:40 ons cephalexin [Cephalexin] AdvReac Vomiting Verified 12/18/17 15:40 morphine AdvReac Nausea Verified 12/18/17 15:40 oxycodone [From Percocet] AdvReac Hallucinati Verified 12/18/17 15:40 ons Home Meds: Home Meds Allopurinol [Zyloprim] 150 mg PO BID 02/04/14 [History] Diazepam [Valium] 5 mg PO Q8H 02/04/14 [History] Famotidine [Pepcid] 20 mg PO BID PRN 02/04/14 [History] Omeprazole [Prilosec] 20 mg PO DAILY 02/04/14 [History] Potassium Chloride [Klor-Con 10] 20 meq PO DAILY 02/04/14 [History] Rosuvastatin [Crestor] 20 mg PO DAILY 02/04/14 [History] Valsartan [Diovan] 80 mg PO DAILY 02/04/14 [History] Calcium Carbonate [Tums] 4 tab PO DAILY 02/20/14 [History] Cholecalciferol (Vitamin D3) [Vitamin D3] 4,000 unit PO DAILY 09/01/14 [History] Pregabalin [Lyrica] 150 mg PO BID 09/06/14 [History] Methylcellulose [Citrucel] 1,000 mg PO BID 12/29/14 [History] Acetaminophen [Tylenol] 500 mg PO Q4H PRN 03/14/16 [History] Aspirin [Halfprin] 81 mg PO DAILY 03/14/16 [History] Hydrocortisone [Cortef] 5 mg PO PCDINNER 03/14/16 [History] PARoxetine HCl [Paxil] 10 mg PO DAILY 03/14/16 [History] Simethicone 125 mg PO BID 03/14/16 [History] B1/B2/Niacin/B12/Protease [B-Complex with B-12 Tablet] 1 each PO DAILY 03/28/16 [History] fentaNYL [Duragesic] 1 patch TD Q48H 03/28/16 [History] traMADol [Ultram] 50 mg PO Q6H PRN 03/28/16 [History] Ferrous Sulfate 325 mg PO DAILY 09/10/16 [History] B2/Vit A,C & E/Lut/Zeaxanth/Mn [Icaps] 1 tab PO BID 01/25/17 [History] Butalbital/Aspirin/Caffeine [Fiorinal 50-325-40 MG] 1 tab PO Q6H PRN 08/26/17 [ History] Lactobacillus Acidophilus [Acidophilus] 1 each PO DAILY 08/26/17 [History] Past Medical History HEENT History: Reports: Hard of Hearing, Impaired Vision Other HEENT History: wears glasses, dentures Cardiovascular History: Reports: Arrhythmia, High Cholesterol, Hypertension, Pacemaker, Other (See Below) Other Cardiovascular History: sick sinus syndrome Respiratory History: Reports: SOB Gastrointestinal History: Reports: Bowel Obstruction, Other (See Below) Other Gastrointestinal History: chronic abd pain Other Genitourinary History: Urinary frequency [employer] History: Reports: None Musculoskeletal History: Reports: Back Pain, Chronic, Fibromyalgia, Osteoarthritis, Other (See Below) Other Musculoskeletal History: carpal tunnel syndrome bilaterally Neurological History: Reports: Headaches, Chronic, Neuropathy, Peripheral, Other (See Below) Other Neuro History: dura-fluid leak with patch Psychiatric History: Reports: Anxiety, Depression, Other (See Below) Other Psychiatric History: chronic pain syndrome, chronic fatigue Endocrine/Metabolic History: Reports: Other (See Below) Other Endocrine/Metabolic History: adrenal insufficiancy Other Hematologic History: hypokalemia Immunologic History: Reports: None Oncologic (Cancer) History: Reports: None - Past Surgical History HEENT Surgical History: Reports: Naso-Sinus Surgery, Tonsillectomy Cardiovascular Surgical History: Reports: Pacer GI Surgical History: Reports: Colon, Colonoscopy, Colostomy, EGD, Other (See Below) Other GI Surgeries/Procedures: colon resection w/ colostomy and reversal Endocrine Surgical History: Reports: Other (See Below) Other Endocrine Surgeries/Procedures: nonfunctioning adrenal gland Neurological Surgical History: Reports: Vertebroplasty Other Neurological Surgeries/Procedures: Nerve block Musculoskeletal Surgical History: Reports: Carpal Tunnel, Hip Replacement, Other (See Below) Other Musculoskeletal Surgeries/Procedures:: 14 back surgeries, ruptured discs, right total hip, right total knee, carpal tunnel procedures, trigger finger procedure Dermatological Surgical History: Reports: Skin Graft Social & Family History - Family History Other HEENT Family History: Pt states daughter is blind in one eye. Cardiac: Reports: CAD, [place] Other Cardiac Family History: Pt states Father @ 53y/o. Oncologic: Reports: Bladder Other Oncologic Family History: Pt states daughter has rare bladder CA and also lost her site in one eye from it. - Tobacco Use Smoking Status *Q: Never Smoker Years of Tobacco use: 2 Used Tobacco, but Quit: No Month/Year Tobacco Last Used: 44 yrs ago Second Hand Smoke Exposure: No - Caffeine Use Caffeine Use: Reports: None - Alcohol Use Days Per Week of Alcohol Use: 0 Number of Drinks Per Day: 0 Total Drinks Per Week: 0 - Recreational Drug Use Recreational Drug Use: No Drug Use in Last 12 Months: No - Living Situation & Occupation Living situation: Reports: with Spouse ED ROS GENERAL - Review of Systems Review Of Systems: ROS reveals no pertinent complaints other than HPI. ED EXAM, GENERAL - Physical Exam Exam: See Below Exam Limited By: No Limitations General Appearance: Alert, WD/WN, Mild Distress, Thin Ears: Hearing Grossly Normal Nose: Normal Inspection Throat/Mouth: Normal Inspection, Normal Oropharynx, Normal Voice, No Airway Compromise Neck: Normal Inspection, Supple Respiratory/Chest: No Respiratory Distress, Lungs Clear, Normal Breath Sounds, No Accessory Muscle Use, Chest Non-Tender Cardiovascular: Normal Peripheral Pulses, Regular Rate, Rhythm Peripheral Pulses: 4+: Radial (R) GI/Abdominal: Soft, Non-Tender, No Organomegaly, No Distention, Abnormal Bowel Sounds (hyperactive) Back Exam: Normal Inspection Extremities: Normal Inspection, Non-Tender, No Pedal Edema Neurological: Alert, Oriented, CN II-XII Intact, Normal Cognition, No Motor/ Sensory Deficits Psychiatric: Normal Affect, Normal Mood Skin Exam: Warm, Dry, Intact, Normal Color, No Rash Course - Vital Signs Last Recorded V/S: Last Vital Signs Temp 96.9 F 12/18/17 15:38 Pulse 79 12/18/17 15:38 Resp 16 12/18/17 15:38 BP 174/96 H 12/18/17 15:38 Pulse Ox 98 12/18/17 15:38 - Orders/Labs/Meds Labs: Laboratory Tests 12/18/17 12/18/17 12/18/17 Range/Units 16:08 16:08 16:10 WBC 4.64 (4.23-9.07) K/mm3 RBC 4.45 L (4.63-6.08) M/mm3 Hgb 13.3 L (13.7-17.5) gm/L Hct 38.0 L (40.1-51.0) % MCV 85.4 (79.0-92.2) fl MCH 29.9 (25.7-32.2) pg MCHC 35.0 (32.2-35.5) g/dl RDW Std Deviation 41.6 (35.1-43.9) fL Plt Count 162 L (163-337) K/mm3 MPV 9.5 (9.4-12.3) fl Neut % (Auto) 75.9 H (34.0-67.9) % Lymph % (Auto) 15.3 L (21.8-53.1) % [place] % (Auto) 7.8 (5.3-12.2) % Eos % (Auto) 0.4 L (0.8-7.0) Baso % (Auto) 0.6 (0.1-1.2) % Neut # (Auto) 3.52 (1.78-5.38) K/mm3 Lymph # (Auto) 0.71 L (1.32-3.57) K/mm3 [place] # (Auto) 0.36 (0.30-0.82) K/mm3 Eos # (Auto) 0.02 L (0.04-0.54) K/mm3 Baso # (Auto) 0.03 (0.01-0.08) K/mm3 Sodium 126 L (136-145) mEq/L Potassium 4.2 (3.5-5.1) mEq/L Chloride 90 L (98-107) mEq/L Carbon Dioxide 29 (21-32) mEq/L Anion Gap 11.2 (5-15) BUN 4 L (7-18) mg/dL Creatinine 0.8 (0.7-1.3) mg/dL Est Cr Clr Drug Dosing TNP Estimated GFR (MDRD) > 60 (>60) mL/min BUN/Creatinine Ratio 5.0 L (14-18) Glucose 100 (80-115) mg/dL Calcium 9.0 (8.5-10.1) mg/dL Magnesium 1.8 (1.8-2.4) mg/dl Total Bilirubin 0.4 (0.2-1.0) mg/dL AST 16 (15-37) U/L ALT 20 (16-63) U/L Alkaline Phosphatase 106 (46-116) U/L Total Protein 6.9 (6.4-8.2) g/dl Albumin 4.2 (3.4-5.0) g/dl Globulin 2.7 gm/dL Albumin/Globulin Ratio 1.6 (1-2) TSH 3rd Generation 0.373 (0.358-3.74) uIU/mL Urine Color Yellow (Yellow) Urine Appearance Clear (Clear) Urine pH 7.0 (5.0-8.0) Ur Specific [place] 1.015 (1.005-1.030) Urine Protein Negative (Negative) Urine Glucose (UA) Negative (Negative) Urine Ketones Negative (Negative) Urine Occult Blood Negative (Negative) Urine Nitrite Negative (Negative) Urine Bilirubin Negative (Negative) Urine Urobilinogen 0.2 (0.2-1.0) Ur Leukocyte Esterase Negative (Negative) Urine RBC 0-5 (0-5) /hpf Urine WBC 0-5 (0-5) /hpf Ur Epithelial Cells 0-5 (0-5) /hpf Urine Bacteria Occasional (FEW) /hpf Urine Mucus Not seen (FEW) /hpf Urine Opiates Screen (NEGATIVE) Ur Buprenorphine Scrn (NEGATIVE) Ur Oxycodone Screen (NEGATIVE) Urine Methadone Screen (NEGATIVE) Ur Propoxyphene Screen (NEGATIVE) Ur Barbiturates Screen (NEGATIVE) Ur Tricyclics Screen (NEGATIVE) Ur Phencyclidine Scrn (NEGATIVE) Ur Amphetamine Screen (NEGATIVE) U Methamphetamines Scrn (NEGATIVE) U Benzodiazepines Scrn (NEGATIVE) U Cocaine Metab Screen (NEGATIVE) U Marijuana (THC) Screen (NEGATIVE) 12/18/17 Range/Units 16:10 WBC (4.23-9.07) K/mm3 RBC (4.63-6.08) M/mm3 Hgb (13.7-17.5) gm/L Hct (40.1-51.0) % MCV (79.0-92.2) fl MCH (25.7-32.2) pg MCHC (32.2-35.5) g/dl RDW Std Deviation (35.1-43.9) fL Plt Count (163-337) K/mm3 MPV (9.4-12.3) fl Neut % (Auto) (34.0-67.9) % Lymph % (Auto) (21.8-53.1) % [place] % (Auto) (5.3-12.2) % Eos % (Auto) (0.8-7.0) Baso % (Auto) (0.1-1.2) % Neut # (Auto) (1.78-5.38) K/mm3 Lymph # (Auto) (1.32-3.57) K/mm3 [place] # (Auto) (0.30-0.82) K/mm3 Eos # (Auto) (0.04-0.54) K/mm3 Baso # (Auto) (0.01-0.08) K/mm3 Sodium (136-145) mEq/L Potassium (3.5-5.1) mEq/L Chloride (98-107) mEq/L Carbon Dioxide (21-32) mEq/L Anion Gap (5-15) BUN (7-18) mg/dL Creatinine (0.7-1.3) mg/dL Est Cr Clr Drug Dosing Estimated GFR (MDRD) (>60) mL/min BUN/Creatinine Ratio (14-18) Glucose (80-115) mg/dL Calcium (8.5-10.1) mg/dL Magnesium (1.8-2.4) mg/dl Total Bilirubin (0.2-1.0) mg/dL AST (15-37) U/L ALT (16-63) U/L Alkaline Phosphatase (46-116) U/L Total Protein (6.4-8.2) g/dl Albumin (3.4-5.0) g/dl Globulin gm/dL Albumin/Globulin Ratio (1-2) TSH 3rd Generation (0.358-3.74) uIU/mL Urine Color (Yellow) Urine Appearance (Clear) Urine pH (5.0-8.0) Ur Specific [place] (1.005-1.030) Urine Protein (Negative) Urine Glucose (UA) (Negative) Urine Ketones (Negative) Urine Occult Blood (Negative) Urine Nitrite (Negative) Urine Bilirubin (Negative) Urine Urobilinogen (0.2-1.0) Ur Leukocyte Esterase (Negative) Urine RBC (0-5) /hpf Urine WBC (0-5) /hpf Ur Epithelial Cells (0-5) /hpf Urine Bacteria (FEW) /hpf Urine Mucus (FEW) /hpf Urine Opiates Screen Negative (NEGATIVE) Ur Buprenorphine Scrn Negative (NEGATIVE) Ur Oxycodone Screen Negative (NEGATIVE) Urine Methadone Screen Negative (NEGATIVE) Ur Propoxyphene Screen Negative (NEGATIVE) Ur Barbiturates Screen Presumptive positive H (NEGATIVE) Ur Tricyclics Screen Negative (NEGATIVE) Ur Phencyclidine Scrn Negative (NEGATIVE) Ur Amphetamine Screen Negative (NEGATIVE) U Methamphetamines Scrn Negative (NEGATIVE) U Benzodiazepines Scrn Presumptive positive H (NEGATIVE) U Cocaine Metab Screen Negative (NEGATIVE) U Marijuana (THC) Screen Negative (NEGATIVE) Meds: Medications Discontinued Medications Generic Name Dose Route Start Last Admin Trade Name Freq PRN Reason Stop Dose Admin Hydromorphone HCl 1 mg 12/18/17 15:52 12/18/17 16:40 Dilaudid IVPUSH 12/18/17 15:53 Not Given ONETIME ONE Hydromorphone HCl 1 mg 12/18/17 16:05 12/18/17 16:15 Dilaudid IVPUSH 12/18/17 16:06 1 mg ONETIME ONE Administration Hydromorphone HCl 1 mg 12/18/17 17:20 12/18/17 17:28 Dilaudid IVPUSH 12/18/17 17:21 1 mg ONETIME ONE Administration Sodium Chloride 1,000 mls @ 999 mls/hr 12/18/17 15:51 12/18/17 16:18 Normal Saline IV 12/18/17 16:51 999 mls/hr ONETIME ONE Administration Ondansetron HCl 4 mg 12/18/17 15:52 12/18/17 16:15 Zofran IVPUSH 12/18/17 15:53 4 mg ONETIME ONE Administration Sodium Chloride 10 ml 12/18/17 15:51 12/18/17 16:17 Saline Flush FLUSH 10 ml ASDIRECTED PRN Administration Keep Vein Open - Re-Assessments/Exams Free Text/Narrative Re-Assessment/Exam: IV established with Dilaudid 1 mg IVP, Zofran 4 mg IVP, and normal saline IV fluids. Initial lab studies will include CBC, chem 14, urine drug tox, magnesium, TSH, UA, abdomen 2 view flat and upright. X-ray of the abdomen: Did reveal copious amounts air present with no obvious signs of volvulus or obstruction.Reviewed with Dr. Lenore Diaz.Final interpretation pending. Labs reviewed: White cell count is 64, hemoglobin 13.3, platelet count 162, sodium is 126, chloride 90, creatinine 0.8, glucose 100, TSH 0.373, UA negative for infection, urine drug tox positive for Barbiturates and benzodiazepines. Sodium is low 126. Patient has a history adrenal insufficiency. Previous lab results indicated similar results. Reassessment, patient states pain is improving. VSS stable. Patient appears to be in no acute distress. Patient is ready be discharged home. Departure - Departure Time of Disposition: 18:10 Disposition: Home, Self-Care 01 Condition: Good Clinical Impression: Hyponatremia, Adrenal insufficiency, Fibromyalgia, Chronic pain syndrome - Discharge Information Instructions: Hyponatremia Referrals: Christofer Macdonald MD [Primary Care Provider] - Forms: ED Department Discharge Additional Instructions: Follow-up with her primary care provider as scheduled this coming week for reevaluation and further management of pain. Continue taking your home medications as prescribed. No driving this evening since receiving a sedative medication while in the ED. Please return to the ED if you develop any new or worsening symptoms. your sodium levels were 126. He received 1 L of normal saline. This should increase her sodium levels. Repeat BMP should be obtained with follow-up with Dr. Macdonald to ensure trending upward due to your adrenal insufficiency. Push the fluids.
--- NOTE | 2017-12-19 09:05 | CR ---
Abdomen: Supine and upright views of the abdomen were obtained. Comparison: Prior abdominal x-ray of 10/08/15. Increased gas identified within small bowel. Some colonic gas is also seen. Surgical clip is seen within the left abdomen. Anastomotic sutures noted within the right abdomen. Right hip prosthesis is noted. Previous laminectomy noted at L4-L5. No free air is seen. Impression: 1. Increased gas within small bowel as well as some portions of colon. Findings most likely represent an ileus. 2. Other incidental findings. Diagnostic code #3
== END 2017-12-18 18:24 | disposition home or self-care (01) ==
LOC: JD.ED 15:26
DX: M79.7 Fibromyalgia (principal); G89.29 Other chronic pain; E87.1 Hypo-osmolality and hyponatremia; E27.40 Unspecified adrenocortical insufficiency; I10 Essential (primary) hypertension; E78.00 Pure hypercholesterolemia, unspecified; F41.9 Anxiety disorder, unspecified; F32.9 Major depressive disorder, single episode, unspecified; Z79.899 Other long term (current) drug therapy; Z79.51 Long term (current) use of inhaled steroids; Z88.8 Allergy status to other drugs, medicaments and biological substances; Z88.6 Allergy status to analgesic agent; Z88.1 Allergy status to other antibiotic agents
CPT/HCPCS: 36415; 74019; 80053; 80306; 81001; 83735; 84443; 85025; 96361; 96374; 96375; 96376; 99284; J1170; J2405; J7040; J7050

== ENCOUNTER 2018-01-18 09:45 | Emergency (ER) | payer MEDICARE, OTHER ==
[2018-01-18 09:58] VITALS: BP 146/74
[2018-01-18] MEDS ORDERED: HYDROmorphone 0.5 MG/0.5 ML SYRINGE IVPUSH ONE ×2 (10:07→11:36)
[2018-01-18] MEDS ORDERED: Metoclopramide 10 MG/2 ML SDV IVPUSH ONE (10:07)
[2018-01-18] MEDS ORDERED: diphenhydrAMINE 50 MG/ML SDV IVPUSH ONE (10:08)
--- NOTE | 2018-01-18 10:09 | EDM.PDOC ---
ED HPI GENERAL MEDICAL PROBLEM - General Chief Complaint: Headache Stated Complaint: HEADACHE Time Seen by Provider: 01/18/18 10:06 Source of Information: Reports: Patient History Limitations: Reports: No Limitations - History of Present Illness INITIAL COMMENTS - FREE TEXT/NARRATIVE: 67-year-old male presents to the ED with a severe headache associated with nausea. He has not eaten yet today and didn't eat much yesterday. He has some diffuse lower abdominal discomfort and reports his bowels have been very sluggish the last several days. Of note the patient is on narcotics long-term and is prone to constipation. He complains of low back pain rating down the right buttock. Does not radiate below the knee. He is concerned that he may have her to discontinue his back although he said no falls or injuries. States he sits in a recliner good portion of the day. States she's had a headache for over 3 days without much relief with his current oral medications. He has a history of fibromyalgia syndrome and when the weather changes and often flares it up. He has not had any vomiting. Denies is any change in vision or his gait. Onset: Other (She has chronic pain syndrome with an acute exacerbation of headache and low back pain.) Onset Date: 01/16/18 Duration: Day(s): Location: Reports: Head, Neck, Abdomen, Back (Lower abdomen infraumbilical across both lower quadrants right lower back rating into the right buttock.), Generalized (Generalized myalgia) Quality: Reports: Ache Severity: Moderate Improves with: Reports: None (Rates his current pain as 8 out of 10.) Worsens with: Reports: None Context: Denies: Activity, Exercise, Lifting, Sick Contact, Trauma, Other Associated Symptoms: Reports: Headaches, Loss of Appetite, Malaise, Weakness. 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 (see below) (See list of current medications.) Headache Pain Score (Numeric/FACES): 9 - Related Data Allergies Allergy/AdvReac Type Severity Reaction Status Date / Time amlodipine besylate Allergy Anaphylactic Verified 01/18/18 09:55 [From [facility]] Shock propoxyphene napsylate Allergy Rash Verified 01/18/18 09:55 [From Darvocet-N 100] acetaminophen [From Percocet] AdvReac Hallucinati Verified 01/18/18 09:55 ons cephalexin [Cephalexin] AdvReac Vomiting Verified 01/18/18 09:55 morphine AdvReac Nausea Verified 01/18/18 09:55 oxycodone [From Percocet] AdvReac Hallucinati Verified 01/18/18 09:55 ons Home Meds: Home Meds Allopurinol [Zyloprim] 150 mg PO BID 02/04/14 [History] Diazepam [Valium] 5 mg PO Q8H 02/04/14 [History] Famotidine [Pepcid] 20 mg PO BID PRN 02/04/14 [History] Omeprazole [Prilosec] 20 mg PO DAILY 02/04/14 [History] Potassium Chloride [Klor-Con 10] 20 meq PO DAILY 02/04/14 [History] Rosuvastatin [Crestor] 20 mg PO DAILY 02/04/14 [History] Valsartan [Diovan] 80 mg PO DAILY 02/04/14 [History] Calcium Carbonate [Tums] 4 tab PO DAILY 02/20/14 [History] Cholecalciferol (Vitamin D3) [Vitamin D3] 4,000 unit PO DAILY 09/01/14 [History] Pregabalin [Lyrica] 150 mg PO BID 09/06/14 [History] Methylcellulose [Citrucel] 1,000 mg PO BID 12/29/14 [History] Acetaminophen [Tylenol] 500 mg PO Q4H PRN 03/14/16 [History] Aspirin [Halfprin] 81 mg PO DAILY 03/14/16 [History] Hydrocortisone [Cortef] 5 mg PO PCDINNER 03/14/16 [History] PARoxetine HCl [Paxil] 10 mg PO DAILY 03/14/16 [History] Simethicone 125 mg PO BID 03/14/16 [History] B1/B2/Niacin/B12/Protease [B-Complex with B-12 Tablet] 1 each PO DAILY 03/28/16 [History] fentaNYL [Duragesic] 1 patch TD Q48H 03/28/16 [History] traMADol [Ultram] 50 mg PO Q6H PRN 03/28/16 [History] Ferrous Sulfate 325 mg PO DAILY 09/10/16 [History] B2/Vit A,C & E/Lut/Zeaxanth/Mn [Icaps] 1 tab PO BID 01/25/17 [History] Butalbital/Aspirin/Caffeine [Fiorinal 50-325-40 MG] 1 tab PO Q6H PRN 08/26/17 [ History] Lactobacillus Acidophilus [Acidophilus] 1 each PO DAILY 08/26/17 [History] Past Medical History HEENT History: Reports: Hard of Hearing, Impaired Vision Other HEENT History: wears glasses, dentures Cardiovascular History: Reports: Arrhythmia, High Cholesterol, Hypertension, Pacemaker, Other (See Below) Other Cardiovascular History: sick sinus syndrome Respiratory History: Reports: SOB Gastrointestinal History: Reports: Bowel Obstruction, Other (See Below) Other Gastrointestinal History: chronic abd pain Other Genitourinary History: Urinary frequency [employer]ANT History: Reports: None Musculoskeletal History: Reports: Back Pain, Chronic, Fibromyalgia, Osteoarthritis, Other (See Below) Other Musculoskeletal History: carpal tunnel syndrome bilaterally Neurological History: Reports: Headaches, Chronic, Neuropathy, Peripheral, Other (See Below) Other Neuro History: dura-fluid leak with patch Psychiatric History: Reports: Anxiety, Depression, Other (See Below) Other Psychiatric History: chronic pain syndrome, chronic fatigue Endocrine/Metabolic History: Reports: Other (See Below) Other Endocrine/Metabolic History: adrenal insufficiancy Other Hematologic History: hypokalemia Immunologic History: Reports: None Oncologic (Cancer) History: Reports: None - Past Surgical History HEENT Surgical History: Reports: Naso-Sinus Surgery, Tonsillectomy Cardiovascular Surgical History: Reports: Pacer GI Surgical History: Reports: Colon, Colonoscopy, Colostomy, EGD, Other (See Below) Other GI Surgeries/Procedures: colon resection w/ colostomy and reversal Endocrine Surgical History: Reports: Other (See Below) Other Endocrine Surgeries/Procedures: nonfunctioning adrenal gland Neurological Surgical History: Reports: Vertebroplasty Other Neurological Surgeries/Procedures: Nerve block Musculoskeletal Surgical History: Reports: Carpal Tunnel, Hip Replacement, Other (See Below) Other Musculoskeletal Surgeries/Procedures:: 14 back surgeries, ruptured discs, right total hip, right total knee, carpal tunnel procedures, trigger finger procedure Dermatological Surgical History: Reports: Skin Graft Social & Family History - Family History Other HEENT Family History: Pt states daughter is blind in one eye. Cardiac: Reports: CAD, [place] Other Cardiac Family History: Pt states Father @ 53y/o. Oncologic: Reports: Bladder Other Oncologic Family History: Pt states daughter has rare bladder CA and also lost her site in one eye from it. - Tobacco Use Smoking Status *Q: Never Smoker Years of Tobacco use: 2 Used Tobacco, but Quit: No Month/Year Tobacco Last Used: 44 yrs ago Second Hand Smoke Exposure: No - Caffeine Use Caffeine Use: Reports: None - Alcohol Use Days Per Week of Alcohol Use: 0 Number of Drinks Per Day: 0 Total Drinks Per Week: 0 - Recreational Drug Use Recreational Drug Use: No Drug Use in Last 12 Months: No - Living Situation & Occupation Living situation: Reports: with Spouse ED ROS GENERAL - Review of Systems Review Of Systems: See Below Constitutional: Reports: Malaise, Weakness, Fatigue, Decreased Appetite, Weight Loss. Denies: Fever, Chills HEENT: Reports: Glasses Respiratory: Denies: Shortness of Breath, Wheezing, Pleuritic Chest Pain, Cough , Sputum, Hemoptysis Cardiovascular: Reports: Blood Pressure Problem, Lightheadedness. Denies: Chest Pain, Claudication, Dyspnea on Exertion, Edema (At times), Palpitations Endocrine: Reports: Fatigue GI/Abdominal: Reports: Abdominal Pain, Constipation (Diffuse lower abdominal discomfort associated with no bowel movement for a few days), Decreased Appetite ( chronic constipation issues weight has remained stable. ) : Reports: No Symptoms Musculoskeletal: Reports: Back Pain (Diffuse low back pain worse on the right rating to the right buttock and down the posterior thigh but not below the knee. ) Skin: Reports: No Symptoms Neurological: Reports: Headache, Difficulty Walking. Denies: Numbness, Syncope , Tingling, Weakness Psychiatric: Reports: Anxiety Hematologic/Lymphatic: Reports: No Symptoms Immunologic: Reports: No Symptoms - Physical Exam Exam: See Below Exam Limited By: No Limitations General Appearance: Alert, WD/WN, Anxious, Other (His general appearance is no different than what I've seen in the past his does not appear to be losing weight.) Eye Exam: Bilateral Eye: Normal Inspection Throat/Mouth: Normal Inspection, Normal Lips, Normal Oropharynx, Other Head Exam: Atraumatic, Normocephalic (He has a varicosity on the undersurface of his left tongue. Oral cavity is otherwise moist.) Neck: Normal Inspection, Limited Range of Motion (Some crepitus with lateral rotation.). No: Lymphadenopathy (L), Lymphadenopathy (R) Respiratory/Chest: No Respiratory Distress, Lungs Clear, Normal Breath Sounds, No Accessory Muscle Use, Chest Non-Tender, Respiratory Distress Cardiovascular: Normal Peripheral Pulses, Regular Rate, Rhythm, No Edema, No Gallop, No Murmur, No Rub GI/Abdominal: No Organomegaly, No Distention, No Abnormal Bruit, No Mass ( Probable mass in the suprapubic region compatible stool.), Abnormal Bowel Sounds (Slightly increased bowel sounds throughout.) (Male) Exam: No Hernia Neuro Exam (Abbreviated): Alert, Oriented, CN II-XII Intact, Normal Cognition, No Motor/Sensory Deficits, Other (Straight leg raising to 60 bilaterally without evidence of nerve root impingement.) DTR: 1+: Patella (R), Patella (L), Achilles (R), Achilles (L) Back Exam: Normal Inspection, Vertebral Tenderness. No: CVA Tenderness (L), CVA Tenderness (R) Extremities: Normal Inspection, Normal Range of Motion (Tenderness over the L4- L5 facet joints at L5-S1 facet joints bilaterally worse on the right as compared to the left. Minimal overlying muscle spasm.), Non-Tender, No Pedal Edema Psychiatric: Anxious Skin Exam: Warm, Dry, Intact, Normal Color, No Rash Course - Vital Signs Last Recorded V/S: Last Vital Signs Temp 36.3 C 01/18/18 09:55 Pulse 75 01/18/18 09:55 Resp BP 146/74 H 01/18/18 09:55 Pulse Ox 98 01/18/18 09:55 - Orders/Labs/Meds Orders: Active Orders 24 hr Category Date Time Status Dextrose 5%-0.9% NaCl [Dextrose 5%-Normal Saline] 1,000 Med 01/18/18 10:15 Active ml IV ASDIRECTED Dextrose 5%-Lactated Ringers 1,000 ml Med 01/18/18 13:45 Active IV ASDIRECTED Ketorolac [Toradol] Med 01/18/18 10:15 Active 30 mg IVPUSH ONETIME Medication Orders Dextrose/Sodium Chloride (Dextrose 5%-Normal Saline) 1,000 mls @ 999 mls/hr IV ASDIRECTED LUCIAN Last Admin: 01/18/18 10:28 Dose: 999 mls/hr Dextrose/Lactated Ringer's (Dextrose 5%-Lactated Ringers) 1,000 mls @ 999 mls/ hr IV ASDIRECTED LUCIAN Last Admin: 01/18/18 13:53 Dose: 999 mls/hr Ketorolac Tromethamine (Toradol) 30 mg IVPUSH ONETIME LUCIAN Last Admin: 01/18/18 10:37 Dose: 30 mg Labs: Laboratory Tests 01/18/18 01/18/18 Range/Units 10:22 10:22 WBC 4.95 (4.23-9.07) K/mm3 RBC 4.66 (4.63-6.08) M/mm3 Hgb 13.7 (13.7-17.5) gm/L Hct 39.0 L (40.1-51.0) % MCV 83.7 (79.0-92.2) fl MCH 29.4 (25.7-32.2) pg MCHC 35.1 (32.2-35.5) g/dl RDW Std Deviation 40.5 (35.1-43.9) fL Plt Count 184 (163-337) K/mm3 MPV 9.7 (9.4-12.3) fl Neutrophils % (Manual) 67 H (40-60) % Band Neutrophils % 0 (0-10) % Lymphocytes % (Manual) 26 (20-40) % Atypical Lymphs % 0 % Monocytes % (Manual) 3 (2-10) % Eosinophils % (Manual) 3 (0.8-7.0) % Basophils % (Manual) 1 (0.2-1.2) Platelet Estimate Adequate RBC Morph Comment Normal Sodium 128 L (136-145) mEq/L Potassium 3.3 L (3.5-5.1) mEq/L Chloride 89 L (98-107) mEq/L Carbon Dioxide 24 (21-32) mEq/L Anion Gap 18.3 H (5-15) BUN 6 L (7-18) mg/dL Creatinine 0.9 (0.7-1.3) mg/dL Est Cr Clr Drug Dosing 77.46 mL/min Estimated GFR (MDRD) > 60 (>60) mL/min BUN/Creatinine Ratio 6.7 L (14-18) Glucose 117 H (80-115) mg/dL Calcium 9.4 (8.5-10.1) mg/dL Total Bilirubin 0.5 (0.2-1.0) mg/dL AST 23 (15-37) U/L ALT 18 (16-63) U/L Alkaline Phosphatase 97 (46-116) U/L C-Reactive Protein < 0.2 (<1.0) mg/dL Total Protein 7.3 (6.4-8.2) g/dl Albumin 4.4 (3.4-5.0) g/dl Globulin 2.9 gm/dL Albumin/Globulin Ratio 1.5 (1-2) Meds: Medications Generic Name Dose Route Start Last Admin Trade Name Freq PRN Reason Stop Dose Admin Dextrose/Sodium Chloride 1,000 mls @ 999 mls/hr 01/18/18 10:15 01/18/18 10:28 Dextrose 5%-Normal Saline IV 999 mls/hr ASDIRECTED LUCIAN Administration Dextrose/Lactated Ringer's 1,000 mls @ 999 mls/hr 01/18/18 13:45 01/18/18 13: 53 Dextrose 5%-Lactated Ringers IV 999 mls/hr ASDIRECTED LUCIAN Administration Ketorolac Tromethamine 30 mg 01/18/18 10:15 01/18/18 10:37 Toradol IVPUSH 30 mg ONETIME LUCIAN Administration Discontinued Medications Generic Name Dose Route Start Last Admin Trade Name Freq PRN Reason Stop Dose Admin Diphenhydramine HCl 25 mg 01/18/18 10:08 01/18/18 10:23 Benadryl IVPUSH 01/18/18 10:09 25 mg ONETIME ONE Administration Haloperidol Lactate 2.5 mg 01/18/18 12:48 01/18/18 13:06 Haldol IVPUSH 01/18/18 12:49 2.5 mg ONETIME ONE Administration Hydromorphone HCl 1 mg 01/18/18 10:07 01/18/18 10:31 Dilaudid IVPUSH 01/18/18 10:08 1 mg ONETIME ONE Administration Hydromorphone HCl 0.5 mg 01/18/18 11:36 01/18/18 11:51 Dilaudid IVPUSH 01/18/18 11:37 0.5 mg ONETIME ONE Administration Lorazepam 1 mg 01/18/18 11:36 01/18/18 11:46 Ativan IVPUSH 01/18/18 11:37 1 mg ONETIME ONE Administration Lorazepam 1 mg 01/18/18 13:50 01/18/18 14:12 Ativan IVPUSH 01/18/18 13:51 Not Given ONETIME ONE Metoclopramide HCl 10 mg 01/18/18 10:07 01/18/18 10:30 Reglan IVPUSH 01/18/18 10:08 10 mg ONETIME ONE Administration Ondansetron HCl 4 mg 01/18/18 12:48 01/18/18 13:04 Zofran IVPUSH 01/18/18 12:49 4 mg ONETIME ONE Administration - Radiology Interpretation Free Text/Narrative:: 67-year-old male presents to the ED with a exacerbation of headache with associated nausea. Nausea and headache are bad enough to not allow him to eat very well. He's not sleeping well either. He appears. Suffered exacerbation of his chronic fibromyalgia state. This includes increased low back pain with facet joint tenderness L4-L5 and L5-S1 on the right side. There is no evidence of nerve impingement. Lower abdominal discomfort appears to be secondary to constipation primarily in the rectal vault and rectum. At this time I seen no need for labs. Plan will be pain management Dilaudid 1 mg IV Toradol 30 mg IV and Reglan 10 mg IV and Benadryl 25 mg IV for pain relief. - Re-Assessments/Exams Free Text/Narrative Re-Assessment/Exam: 01/18/18 11:37 patient rates current headache pain is still 9 out of 10. He is requesting something further for pain relief and headache relief. Plan Ativan 1 mg IV Dilaudid 0.5 mg IV to be administered. 01/18/18 12:40: Patient reports his headache is still 8 or 9 out of 10. He still slightly nauseated. He still has significant paraspinal muscle spasm on his right lateral neck. I'm not sure what else to offer him. I will give him Zofran 4 mg IV and Haldol 2.5 mg IV and see if this helps his headache. Will order labs since he is not responding as I would've predicted. 01/18/18 13:41 labs are back.Labs are back. Normal white count at 4.95. Differential pending. Hemoglobin 13.7 with hematocrit of 39.0. Platelet count 184,000. Serum sodium is low at 128 potassium is slightly low at 3.3. Chloride is 89 with a bicarbonate of 24. And a gap is elevated at 18.3 indicating he has not been eating or drinking well. BUNs 6 with a creatinine of 0.9. Glucose is 117. Note this is after a liter of D5 normal saline. Calcium is 9.4 liver function normal. Labs reveal hyponatremia 128 and volume depletion with the anion gap of 18.3. He therefore will require another liter of IV fluids which will be D5 lactated Ringer's. 01/18/18 13:50 patient is quite groggy after the Haldol but he stills claims that his headache is 8 out of 10. I'm just going to leave him alone and let him sleep at this point time. 01/18/18 14:13 nurse identified the patient is sleeping soundly and therefore Ativan order will be canceled. 01/18/18 16:46 patient was roused by the nurse and he is now much more alert. He indicates his headache is down to a 3 or 4 out of 10 and he wishes to go home. His daughter has been here waiting for him to be able to go home and therefore he will be discharged into her care. Advised that he must drink more than water to prevent dilutional hyponatremia. Must drink some electrolyte- containing juices and/or Gatorade Powerade. Also he hasn't eaten for a couple of days since his has been away and he has suffered a metabolic acidosis from ketosis. He is rehydrated after 2 L of intravenous fluids while in the ED. No changes made to his medications otherwise. Discharged to home. Departure - Departure Time of Disposition: 16:33 Disposition: Home, Self-Care 01 Clinical Impression: Cervical pain (neck), Fibromyalgia, Hyponatremia, Dehydration Headache Qualifiers: Headache type: unspecified Headache chronicity pattern: acute headache Intractability: not intractable Qualified Code(s): R51 - Headache Low back pain Qualifiers: Chronicity: acute Back pain laterality: right Sciatica presence: without sciatica Qualified Code(s): M54.5 - Low back pain - Discharge Information Referrals: Christofer Macdonald MD [Primary Care Provider] - Forms: ED Department Discharge Additional Instructions: Evaluation the emergency room today in regards to a severe fairly severe headache that came on 2-3 days ago and this failed to resolve. I think it's associated with significant cervical neck pain on the right side with spasm appreciated over C4-C5 facet joints. Generally appear to be suffering an exacerbation of her fibromyalgia no doubt due to weather changes. Right low back pain is facet joint or mechanical low back pain. There is no evidence of nerve root entrapment or disc herniation. Lab work identified a low serum sodium level due to drinking too much water not enough juices and/or Gatorade or Powerade to replenish her normal electrolyte status. Just decreasing the amount appear water that you drink. You are mildly volume depleted and eaten much for the last few days and therefore breaking down your fats for energy which was creating nausea and continued to the headache. You are therefore treated with 2 L of intravenous fluids to provide rehydration and help restore your serum sodium level to near normal levels. The clustered with a multitude of medications including Reglan and Dilaudid low-dose Benadryl. He also received one small dose of Haldol in an effort to further relieve her headache which may do quite sleepy and you able to have a nap for 2-1/2-3 hours. Suggest getting something to eat before going to sleep again tonight. Juices or Gatorade or Powerade instead of water for the next couple of days to replenish her sodium level back to normal. All other medications as previously prescribed. - My Orders Last 24 Hours: My Active Orders 01/18/18 10:15 Dextrose 5%-0.9% NaCl [Dextrose 5%-Normal Saline] 1,000 ml IV ASDIRECTED Ketorolac [Toradol] 30 mg IVPUSH ONETIME 01/18/18 13:45 Dextrose 5%-Lactated Ringers 1,000 ml IV ASDIRECTED - Assessment/Plan Last 24 Hours: My Active Orders 01/18/18 10:15 Dextrose 5%-0.9% NaCl [Dextrose 5%-Normal Saline] 1,000 ml IV ASDIRECTED Ketorolac [Toradol] 30 mg IVPUSH ONETIME 01/18/18 13:45 Dextrose 5%-Lactated Ringers 1,000 ml IV ASDIRECTED
[2018-01-18] MEDS ORDERED: Ketorolac 30 MG/ML SDV IVPUSH SCH (10:15)
[2018-01-18] MEDS ORDERED: Dextrose 5%-0.9% NaCl 1,000 ML IV SCH (10:15)
[2018-01-18] MEDS ORDERED: LORazepam 2 MG/ML SDV IVPUSH ONE ×2 (11:36→13:50)
[2018-01-18] MEDS ORDERED: Ondansetron 4 MG/2 ML SDV IVPUSH ONE (12:48)
[2018-01-18] MEDS ORDERED: Haloperidol Lactate 5 MG/ML SDV IVPUSH ONE (12:48)
[2018-01-18] MEDS ORDERED: Dextrose 5%-Lactated Ringers 1,000 ML IV SCH (13:45)
== END 2018-01-18 17:13 | disposition home or self-care (01) ==
LOC: JD.ED 09:45
DX: M54.2 Cervicalgia (principal); E86.0 Dehydration; R51 Headache; E87.1 Hypo-osmolality and hyponatremia; M54.5 Low back pain; M79.7 Fibromyalgia; E78.00 Pure hypercholesterolemia, unspecified; I10 Essential (primary) hypertension; Z88.8 Allergy status to other drugs, medicaments and biological substances; Z88.1 Allergy status to other antibiotic agents; Z88.5 Allergy status to narcotic agent; Z79.899 Other long term (current) drug therapy; Z79.82 Long term (current) use of aspirin
CPT/HCPCS: 36415; 80053; 85025; 86140; 96361; 96374; 96375; 96376; 99284; J1170; J1200; J1630; J1885; J2060; J2405; J2765; J7042; 99285

== ENCOUNTER 2018-06-24 15:29 | Emergency (ER) | payer MEDICARE, OTHER ==
[2018-06-24 15:44] VITALS: BP 139/75
[2018-06-24] MEDS ORDERED: Sodium Chloride 0.9% 10 ML Syringe FLUSH PRN (16:18)
[2018-06-24] MEDS ORDERED: HYDROmorphone 1 MG/ML Syringe IVPUSH ONE (16:18)
--- NOTE | 2018-06-24 16:49 | EDM.PDOC ---
ED HPI GENERAL MEDICAL PROBLEM - General Chief Complaint: Abdominal Pain Stated Complaint: ABD PAIN/BACK PAIN Time Seen by Provider: 06/24/18 16:04 Source of Information: Reports: Patient History Limitations: Reports: No Limitations - History of Present Illness INITIAL COMMENTS - FREE TEXT/NARRATIVE: 67-year-old male presents for evaluation and treatment of lower abdominal pain and low back pain. Patient feels that he is constipated. Reports that he has been taking multiple laxatives, senna and had a Fleet enema last night. He only had a small bowel movement last night. Last "normal" bowel movement was on Saturday. He reports pain across his lower abdomen, nausea and decreased appetite. He did eat a sandwich last night but has not had anything today. He reports low back pain that radiates up his entire back to his neck and into his legs. He reports feeling chilled but denies any fevers or vomiting. He states that he does not feel he is passing much gas. Patient has had multiple abdominal surgeries in the past. He has had bowel obstruction in the past. Patient is on multiple medications for pain including tramadol, fentyl patch and Valium. He has a past medical history of fibromyalgia and complex pain syndrome. Reviewed of the patient's records show he was hospitalized in May. He was initially seen here and sent to [facility] where he was hospitalized for 7 days. Treated for sepsis. He is unclear etiology of his infection. Primary care providers Dr. Valadez, has not seen him since he was recently hospitalized. Lower Abdomen Pain Score (Numeric/FACES): 8 - Related Data Allergies Allergy/AdvReac Type Severity Reaction Status Date / Time amitriptyline Allergy Other Verified 06/24/18 15:46 amlodipine besylate Allergy Anaphylactic Verified 06/24/18 15:46 [From Norvasc] Shock mirtazapine [From Remeron] Allergy Anxiety Verified 06/24/18 15:46 propoxyphene napsylate Allergy Rash Verified 06/24/18 15:46 [From Darvocet-N 100] sulfamethoxazole Allergy Other Verified 06/24/18 15:46 [From Bactrim] trimethoprim [From Bactrim] Allergy Other Verified 06/24/18 15:46 acetaminophen [From Percocet] AdvReac Hallucinati Verified 06/24/18 15:46 ons cephalexin [Cephalexin] AdvReac Vomiting Verified 06/24/18 15:46 morphine AdvReac Nausea Verified 06/24/18 15:46 oxycodone [From Percocet] AdvReac Hallucinati Verified 06/24/18 15:46 ons Home Meds: Home Meds Allopurinol [Zyloprim] 150 mg PO BID 02/04/14 [History] Famotidine [Pepcid] 20 mg PO BID PRN 02/04/14 [History] Omeprazole [Prilosec] 20 mg PO BID 02/04/14 [History] Potassium Chloride [Klor-Con 10] 20 meq PO DAILY 02/04/14 [History] Rosuvastatin [Crestor] 20 mg PO DAILY 02/04/14 [History] diazePAM [Valium] 5 mg PO Q8H 02/04/14 [History] Calcium Carbonate [Tums] 2,000 mg PO DAILY 02/20/14 [History] Cholecalciferol (Vitamin D3) [Vitamin D3] 4,000 unit PO DAILY 09/01/14 [History] Pregabalin [Lyrica] 150 mg PO TID 09/06/14 [History] Acetaminophen [Tylenol] 500 mg PO Q4H PRN 03/14/16 [History] Aspirin [Halfprin] 81 mg PO DAILY 03/14/16 [History] Hydrocortisone [Cortef] 5 mg PO PCDINNER 03/14/16 [History] Simethicone 125 mg PO BID 03/14/16 [History] B1/B2/Niacin/B12/Protease [B-Complex with B-12 Tablet] 1 each PO DAILY 03/28/16 [History] fentaNYL [Duragesic] 100 mcg TD Q48H 03/28/16 [History] traMADol [Ultram] 50 mg PO Q6H PRN 03/28/16 [History] Ferrous Sulfate 325 mg PO DAILY 09/10/16 [History] Butalbital/Aspirin/Caffeine [Fiorinal 50-325-40 MG] 1 tab PO Q6H PRN 08/26/17 [ History] Lactobacillus Acidophilus [Acidophilus] 1 each PO DAILY 08/26/17 [History] Docusate Sodium [Colace] 200 mg PO BID 05/07/18 [History] Hydrocortisone [Cortef] 10 mg PO DAILY 05/07/18 [History] Methylcellulose [Citrucel] 500 mg PO BID 05/07/18 [History] Na Phos,M-B/Na Phos,DI-B [Fleet Enema] 1 dose RECTAL ASDIRECTED PRN 05/13/18 [ History] Losartan [Cozaar] 50 mg PO DAILY 06/24/18 [History] Past Medical History HEENT History: Reports: Hard of Hearing, Impaired Vision Other HEENT History: wears glasses, dentures Cardiovascular History: Reports: Arrhythmia, High Cholesterol, Hypertension, Pacemaker, Other (See Below) Other Cardiovascular History: sick sinus syndrome Respiratory History: Reports: SOB Gastrointestinal History: Reports: Bowel Obstruction, Other (See Below) Other Gastrointestinal History: chronic abd pain Genitourinary History: Reports: Other (See Below) Other Genitourinary History: Urinary frequency, prostatitis OIL T[employer] History: Reports: None Musculoskeletal History: Reports: Back Pain, Chronic, Fibromyalgia, Osteoarthritis, Other (See Below) Other Musculoskeletal History: carpal tunnel syndrome bilaterally Neurological History: Reports: Headaches, Chronic, Neuropathy, Peripheral, Other (See Below) Other Neuro History: dura-fluid leak with patch Psychiatric History: Reports: Anxiety, Depression, Other (See Below) Other Psychiatric History: chronic pain syndrome, chronic fatigue Endocrine/Metabolic History: Reports: Other (See Below) Other Endocrine/Metabolic History: adrenal insufficiancy Hematologic History: Reports: Anemia, Iron Deficiency Other Hematologic History: hypokalemia Immunologic History: Reports: None Oncologic (Cancer) History: Reports: None - Past Surgical History HEENT Surgical History: Reports: Naso-Sinus Surgery, Tonsillectomy Cardiovascular Surgical History: Reports: Pacer GI Surgical History: Reports: Colon, Colonoscopy, Colostomy, EGD, Other (See Below) Other GI Surgeries/Procedures: colon resection w/ colostomy and reversal Endocrine Surgical History: Reports: Other (See Below) Other Endocrine Surgeries/Procedures: nonfunctioning adrenal gland Neurological Surgical History: Reports: Vertebroplasty Other Neurological Surgeries/Procedures: Nerve block Musculoskeletal Surgical History: Reports: Carpal Tunnel, Hip Replacement, Other (See Below) Other Musculoskeletal Surgeries/Procedures:: 14 back surgeries, ruptured discs, right total hip, right total knee, carpal tunnel procedures, trigger finger procedure Dermatological Surgical History: Reports: Skin Graft Social & Family History - Family History Other HEENT Family History: Pt states daughter is blind in one eye. Cardiac: Reports: CAD, [place] Other Cardiac Family History: Pt states Father @ 53y/o. Oncologic: Reports: Bladder Other Oncologic Family History: Pt states daughter has rare bladder CA and also lost her site in one eye from it. - Tobacco Use Smoking Status *Q: Never Smoker - Caffeine Use Caffeine Use: Reports: Soda Other Caffeine Use: occasional - Recreational Drug Use Recreational Drug Use: No - Living Situation & Occupation Living situation: Reports: with Spouse ED ROS GENERAL - Review of Systems Review Of Systems: See Below Constitutional: Reports: Chills. Denies: Fever GI/Abdominal: Reports: Abdominal Pain, Constipation, Nausea. Denies: Flatus ( decreased flatus), Vomiting Musculoskeletal: Reports: Back Pain ED EXAM, GI/ABD - Physical Exam Exam: See Below Exam Limited By: No Limitations General Appearance: Alert, WD/WN, No Apparent Distress Ears: Normal External Exam Nose: Normal Inspection Throat/Mouth: Normal Inspection Neck: Normal Inspection Respiratory/Chest: No Respiratory Distress, Lungs Clear, Normal Breath Sounds Cardiovascular: Normal Peripheral Pulses, Regular Rate, Rhythm, No Murmur GI/Abdominal Exam: Normal Bowel Sounds, Soft, Tender (mild lower abdomen) Neurological: Alert, Oriented, Normal Cognition Psychiatric: Normal Affect, Normal Mood Skin Exam: Warm, Dry, Normal Color Course - Vital Signs Last Recorded V/S: Last Vital Signs Temp 98 F 06/24/18 15:41 Pulse 70 06/24/18 15:41 Resp 18 06/24/18 15:41 BP 139/75 06/24/18 15:41 Pulse Ox 99 06/24/18 15:41 - Orders/Labs/Meds Orders: Active Orders 24 hr Category Date Time Status Peripheral IV Care [RC] . DIRECTED Care 06/24/18 16:18 Active Abdomen 2V AP Flat Upright [CR] Stat Exams 06/24/18 16:18 Taken Sodium Chloride 0.9% [Saline Flush] Med 06/24/18 16:18 Active 10 ml FLUSH ASDIRECTED PRN Peripheral IV Insertion Adult [OM.PC] Routine Oth 06/24/18 16:17 Ordered Medication Orders Sodium Chloride (Saline Flush) 10 ml FLUSH ASDIRECTED PRN PRN Reason: Keep Vein Open Last Admin: 06/24/18 16:43 Dose: 10 ml Labs: Laboratory Tests 06/24/18 06/24/18 06/24/18 Range/Units 17:30 17:45 17:45 WBC 4.50 (4.23-9.07) K/mm3 RBC 4.16 L (4.63-6.08) M/mm3 Hgb 12.3 L (13.7-17.5) gm/L Hct 36.1 L (40.1-51.0) % MCV 86.8 (79.0-92.2) fl MCH 29.6 (25.7-32.2) pg MCHC 34.1 (32.2-35.5) g/dl RDW Std Deviation 44.0 H (35.1-43.9) fL Plt Count 176 (163-337) K/mm3 MPV 8.9 L (9.4-12.3) fl Neut % (Auto) 53.7 (34.0-67.9) % Lymph % (Auto) 35.6 (21.8-53.1) % Riley % (Auto) 8.0 (5.3-12.2) % Eos % (Auto) 1.8 (0.8-7.0) Baso % (Auto) 0.9 (0.1-1.2) % Neut # (Auto) 2.42 (1.78-5.38) K/mm3 Lymph # (Auto) 1.60 (1.32-3.57) K/mm3 Riley # (Auto) 0.36 (0.30-0.82) K/mm3 Eos # (Auto) 0.08 (0.04-0.54) K/mm3 Baso # (Auto) 0.04 (0.01-0.08) K/mm3 Sodium 135 L (136-145) mEq/L Potassium 4.0 (3.5-5.1) mEq/L Chloride 101 (98-107) mEq/L Carbon Dioxide 27 (21-32) mEq/L Anion Gap 11.0 (5-15) BUN 3 L (7-18) mg/dL Creatinine 0.8 (0.7-1.3) mg/dL Est Cr Clr Drug Dosing 86.10 mL/min Estimated GFR (MDRD) > 60 (>60) mL/min BUN/Creatinine Ratio 3.8 L (14-18) Glucose 86 (80-115) mg/dL Calcium 8.6 (8.5-10.1) mg/dL Total Bilirubin 0.2 (0.2-1.0) mg/dL AST 21 (15-37) U/L ALT 24 (16-63) U/L Alkaline Phosphatase 120 H (46-116) U/L C-Reactive Protein 0.3 (<1.0) mg/dL Total Protein 6.3 L (6.4-8.2) g/dl Albumin 3.4 (3.4-5.0) g/dl Globulin 2.9 gm/dL Albumin/Globulin Ratio 1.2 (1-2) Urine Color Light yellow (Yellow) Urine Appearance Clear (Clear) Urine pH 7.0 (5.0-8.0) Ur Specific [place] 1.010 (1.005-1.030) Urine Protein Negative (Negative) Urine Glucose (UA) Negative (Negative) Urine Ketones Negative (Negative) Urine Occult Blood Negative (Negative) Urine Nitrite Negative (Negative) Urine Bilirubin Negative (Negative) Urine Urobilinogen 0.2 (0.2-1.0) Ur Leukocyte Esterase Negative (Negative) Urine RBC Not seen (0-5) /hpf Urine WBC Not seen (0-5) /hpf Ur Epithelial Cells 0-5 (0-5) /hpf Urine Bacteria Not seen (FEW) /hpf Urine Mucus Not seen (FEW) /hpf Meds: Medications Generic Name Dose Route Start Last Admin Trade Name Freq PRN Reason Stop Dose Admin Sodium Chloride 10 ml 06/24/18 16:18 06/24/18 16:43 Saline Flush FLUSH 10 ml ASDIRECTED PRN Administration Keep Vein Open Discontinued Medications Generic Name Dose Route Start Last Admin Trade Name Freq PRN Reason Stop Dose Admin Hydromorphone HCl 1 mg 06/24/18 16:18 06/24/18 16:43 Dilaudid IVPUSH 06/24/18 16:19 1 mg ONETIME ONE Administration Hydromorphone HCl 0.5 mg 06/24/18 18:50 Dilaudid IVPUSH 06/24/18 18:51 ONETIME ONE Ketorolac Tromethamine 15 mg 06/24/18 17:39 06/24/18 17:44 Toradol IVPUSH 06/24/18 17:40 15 mg ONETIME ONE Administration - Radiology Interpretation Free Text/Narrative:: flat and upright abdominal xray reviewed by myself and Dr. Oreilly shows increased stool to the right hemicolon. No air fluid levels. Ileus pattern. - Re-Assessments/Exams Free Text/Narrative Re-Assessment/Exam: 06/24/18 18:09 Reviewed the x-ray results with the patient. He is still complaining of significant pain. 15 g IV Toradol ordered. Awaiting lab results at this time. 06/24/18 18:50 Reviewed the lab results with the patient. He still is complaining pain. Will order an additional 0.5 mg IV Dilaudid and plan for discharge. Discharge instructions as documented. Departure - Departure Time of Disposition: 18:51 Disposition: Home, Self-Care 01 Condition: Fair Clinical Impression: Abdominal pain, Constipation - Discharge Information *PRESCRIPTION DRUG MONITORING PROGRAM REVIEWED*: No *COPY OF PRESCRIPTION DRUG MONITORING REPORT IN PATIENT MARS: No Referrals: Christofer Macdonald MD [Primary Care Provider] - Forms: ED Department Discharge Additional Instructions: you were given medication in the ER that can affect your ability to drive and operate machinery. Do not drive or operate machinery within 12 hours of taking prescription narcotic pain medications. Recommend magnesium citrate. This is available [id number]. Drink about half of the 300 ml bottle, if you do not have a large bowel movement in 8 to 10 hours of drinking the mag citrate, drink the second half of the bottle. Make sure drinking plenty of fluids. Follow-up with Dr. Valadez next week as planned. Please return to the ER if your symptoms change or worsen. - My Orders Last 24 Hours: My Active Orders 06/24/18 16:17 Peripheral IV Insertion Adult [OM.PC] Routine 06/24/18 16:18 Peripheral IV Care [RC] . DIRECTED Abdomen 2V AP Flat Upright [CR] Stat Sodium Chloride 0.9% [Saline Flush] 10 ml FLUSH ASDIRECTED PRN - Assessment/Plan Last 24 Hours: My Active Orders 06/24/18 16:17 Peripheral IV Insertion Adult [OM.PC] Routine 06/24/18 16:18 Peripheral IV Care [RC] . DIRECTED Abdomen 2V AP Flat Upright [CR] Stat Sodium Chloride 0.9% [Saline Flush] 10 ml FLUSH ASDIRECTED PRN
[2018-06-24] MEDS ORDERED: Ketorolac 15 MG/ML SDV IVPUSH ONE (17:39)
[2018-06-24] MEDS ORDERED: HYDROmorphone 0.5 MG/0.5 ML SYRINGE IVPUSH ONE (18:50)
--- NOTE | 2018-06-25 10:29 | CR ---
Abdomen: Supine and upright views of the abdomen were obtained. Comparison: Prior abdominal x-ray of 05/07/18. Scattered gas throughout small bowel and colon are seen. No findings of bowel obstruction are seen. Right hip prosthesis is noted. No free air is identified. Surgical clips seen within the left abdomen. Impression: 1. Gas throughout small bowel and colon which does not appear obstructive. This may represent mild ileus or excessive swallowed gas. 2. Other incidental findings. Diagnostic code #2
== END 2018-06-24 19:10 | disposition home or self-care (01) ==
LOC: JD.ED 15:29
DX: K59.00 Constipation, unspecified (principal); I10 Essential (primary) hypertension; E78.00 Pure hypercholesterolemia, unspecified; E87.6 Hypokalemia; F41.9 Anxiety disorder, unspecified; F32.9 Major depressive disorder, single episode, unspecified; D50.9 Iron deficiency anemia, unspecified; Z88.8 Allergy status to other drugs, medicaments and biological substances; Z79.899 Other long term (current) drug therapy; Z79.82 Long term (current) use of aspirin
CPT/HCPCS: 36415; 74019; 80053; 81001; 85025; 86140; 96374; 96375; 96376; 99284; J1170; J1885; J7050

== ENCOUNTER 2018-11-03 06:37 | Emergency (ER) | payer MEDICARE, OTHER ==
[2018-11-03] MEDS ORDERED: Ketorolac 30 MG/ML SDV IVPUSH ONE (07:27)
[2018-11-03] MEDS ORDERED: LORazepam 2 MG/ML SDV IVPUSH ONE (07:27)
[2018-11-03] MEDS ORDERED: traMADol 50 MG Tab PO ONE (07:28)
[2018-11-03] MEDS ORDERED: Sodium Chloride 0.9% 10 ML Syringe FLUSH PRN (07:28)
[2018-11-03] MEDS ORDERED: Pregabalin 75 MG Cap PO ONE (07:28)
[2018-11-03] MEDS ORDERED: Acetaminophen/Butalbital/Caffeine 325-50-40 MG Tab PO ONE (07:28)
--- NOTE | 2018-11-03 07:48 | EDM.PDOC ---
ED HPI GENERAL MEDICAL PROBLEM - General Chief Complaint: General Stated Complaint: ALL OVER BODY PAIN Time Seen by Provider: 11/03/18 07:02 Source of Information: Reports: Patient History Limitations: Reports: No Limitations - History of Present Illness INITIAL COMMENTS - FREE TEXT/NARRATIVE: The patient is a 67-year-old male with a history of fibromyalgia, anxiety, chronic pain, and frequent emergency department visits presents for exacerbation of his chronic pain syndrome. He states he's been taking all of his usual medications as prescribed, which include Fioricet, fentanyl patch, Lyrica, tramadol as needed, diazepam as needed but he has been hurting all over and unable to sleep for the last 3 days due to pain and anxiety. There is no provoking factor. He doesn't feel sick he just feels like everything hurts. Denies fever. No cough. No vomiting. No abdominal pain. No recent injury. tried giving him an extra diazepam last night but he was still unable to sleep due to his discomfort. He is also concerned about a headache which has been constant for the last few days, throbbing, waxes and wanes, and has associated blurry vision and photophobia. He's had some nausea but no vomiting. Generalized Pain Score (Numeric/FACES): 9 - Related Data Allergies Allergy/AdvReac Type Severity Reaction Status Date / Time amitriptyline Allergy Other Verified 09/16/18 06:32 amlodipine besylate Allergy Anaphylactic Verified 09/16/18 06:32 [From Norvasc] Shock mirtazapine [From Remeron] Allergy Anxiety Verified 09/16/18 06:32 propoxyphene napsylate Allergy Rash Verified 09/16/18 06:32 [From Darvocet-N 100] sulfamethoxazole Allergy Other Verified 09/16/18 06:32 [From Bactrim] trimethoprim [From Bactrim] Allergy Other Verified 09/16/18 06:32 acetaminophen [From Percocet] AdvReac Hallucinati Verified 09/16/18 06:32 ons cephalexin [Cephalexin] AdvReac Vomiting Verified 09/16/18 06:32 morphine AdvReac Nausea Verified 09/16/18 06:32 oxycodone [From Percocet] AdvReac Hallucinati Verified 09/16/18 06:32 ons Home Meds: Home Meds Allopurinol [Zyloprim] 150 mg PO BID 02/04/14 [History] Famotidine [Pepcid] 20 mg PO BID PRN 02/04/14 [History] Omeprazole [Prilosec] 20 mg PO BID 02/04/14 [History] Potassium Chloride [Klor-Con 10] 20 meq PO DAILY 02/04/14 [History] Rosuvastatin [Crestor] 20 mg PO DAILY 02/04/14 [History] diazePAM [Valium] 5 mg PO Q8H 02/04/14 [History] Calcium Carbonate [Tums] 2,000 mg PO DAILY 02/20/14 [History] Cholecalciferol (Vitamin D3) [Vitamin D3] 4,000 unit PO DAILY 09/01/14 [History] Pregabalin [Lyrica] 150 mg PO TID 09/06/14 [History] Acetaminophen [Tylenol] 500 mg PO Q4H PRN 03/14/16 [History] Aspirin [Halfprin] 81 mg PO DAILY 03/14/16 [History] Hydrocortisone [Cortef] 5 mg PO PCDINNER 03/14/16 [History] Simethicone 125 mg PO BID 03/14/16 [History] B1/B2/Niacin/B12/Protease [B-Complex with B-12 Tablet] 1 each PO DAILY 03/28/16 [History] fentaNYL [Duragesic] 100 mcg TD Q48H 03/28/16 [History] traMADol [Ultram] 50 mg PO Q6H PRN 03/28/16 [History] Ferrous Sulfate 325 mg PO DAILY 09/10/16 [History] Butalbital/Aspirin/Caffeine [Fiorinal 50-325-40 MG] 1 tab PO Q6H PRN 08/26/17 [ History] Lactobacillus Acidophilus [Acidophilus] 1 each PO DAILY 08/26/17 [History] Docusate Sodium [Colace] 200 mg PO BID 05/07/18 [History] Hydrocortisone [Cortef] 10 mg PO DAILY 05/07/18 [History] Na Phos,M-B/Na Phos,DI-B [Fleet Enema] 1 dose RECTAL ASDIRECTED PRN 05/13/18 [ History] Losartan [Cozaar] 50 mg PO DAILY 06/24/18 [History] Polyethylene Glycol 3350 [Miralax] 17 gram PO BID 08/22/18 [History] PARoxetine [Paxil] 20 mg PO DAILY 09/16/18 [History] Past Medical History HEENT History: Reports: Hard of Hearing, Impaired Vision Other HEENT History: wears glasses, dentures Cardiovascular History: Reports: Arrhythmia, High Cholesterol, Hypertension, Pacemaker, Other (See Below) Other Cardiovascular History: sick sinus syndrome Respiratory History: Reports: SOB Gastrointestinal History: Reports: Bowel Obstruction, Other (See Below) Other Gastrointestinal History: chronic abd pain Genitourinary History: Reports: Retention, Urinary, Other (See Below) Other Genitourinary History: Urinary frequency, prostatitis INSTRUMENT SETTER History: Reports: None Musculoskeletal History: Reports: Back Pain, Chronic, Fibromyalgia, Osteoarthritis, Other (See Below) Other Musculoskeletal History: carpal tunnel syndrome bilaterally Neurological History: Reports: Headaches, Chronic, Neuropathy, Peripheral, Other (See Below) Other Neuro History: dura-fluid leak with patch Psychiatric History: Reports: Anxiety, Depression, Other (See Below) Other Psychiatric History: chronic pain syndrome, chronic fatigue Endocrine/Metabolic History: Reports: Other (See Below) Other Endocrine/Metabolic History: adrenal insufficiancy Hematologic History: Reports: Anemia, Iron Deficiency Other Hematologic History: hypokalemia Immunologic History: Reports: None Oncologic (Cancer) History: Reports: None - Past Surgical History HEENT Surgical History: Reports: Naso-Sinus Surgery, Tonsillectomy Cardiovascular Surgical History: Reports: Pacer GI Surgical History: Reports: Colon, Colonoscopy, Colostomy, EGD, Other (See Below) Other GI Surgeries/Procedures: colon resection w/ colostomy and reversal Endocrine Surgical History: Reports: Other (See Below) Other Endocrine Surgeries/Procedures: nonfunctioning adrenal gland Neurological Surgical History: Reports: Vertebroplasty Other Neurological Surgeries/Procedures: Nerve block Musculoskeletal Surgical History: Reports: Carpal Tunnel, Hip Replacement, Other (See Below) Other Musculoskeletal Surgeries/Procedures:: 14 back surgeries, ruptured discs, right total hip, right total knee, carpal tunnel procedures, trigger finger procedure Dermatological Surgical History: Reports: Skin Graft Social & Family History - Family History Family Medical History: Noncontributory Other HEENT Family History: Pt states daughter is blind in one eye. Cardiac: Reports: CAD, [place] Other Cardiac Family History: Pt states Father @ 53y/o. Oncologic: Reports: Bladder Other Oncologic Family History: Pt states daughter has rare bladder CA and also lost her site in one eye from it. - Tobacco Use Smoking Status *Q: Never Smoker - Caffeine Use Caffeine Use: Reports: None Other Caffeine Use: occasional - Recreational Drug Use Recreational Drug Use: No - Living Situation & Occupation Living situation: Reports: with Spouse ED ROS GENERAL - Review of Systems Review Of Systems: See Below Constitutional: Denies: Fever HEENT: Reports: Vision Change. Denies: Rhinitis Respiratory: Denies: Shortness of Breath Cardiovascular: Denies: Chest Pain Endocrine: Reports: Fatigue GI/Abdominal: Denies: Abdominal Pain, Vomiting : Reports: No Symptoms Musculoskeletal: Reports: Neck Pain, Shoulder Pain, Arm Pain, Back Pain, Leg Pain Skin: Reports: No Symptoms Neurological: Reports: Headache Psychiatric: Reports: Anxiety Hematologic/Lymphatic: Reports: No Symptoms Immunologic: Reports: No Symptoms ED EXAM, GENERAL - Physical Exam Exam: See Below Exam Limited By: No Limitations General Appearance: Alert, Anxious, Mild Distress Eye Exam: Bilateral Eye: EOMI, Normal Inspection, PERRL Ears: Normal External Exam Nose: Normal Inspection Throat/Mouth: Normal Inspection, Normal Oropharynx, Normal Voice, No Airway Compromise Head: Atraumatic, Normocephalic Neck: Normal Inspection, Supple, Full Range of Motion Respiratory/Chest: No Respiratory Distress, Lungs Clear, Normal Breath Sounds Cardiovascular: Normal Peripheral Pulses, Regular Rate, Rhythm, No Edema GI/Abdominal: Soft, Non-Tender, No Distention. No: Rebound Back Exam: Normal Inspection Extremities: Normal Inspection, Normal Range of Motion Neurological: Alert, Oriented, CN II-XII Intact, Normal Cognition, No Motor/ Sensory Deficits Psychiatric: Anxious Skin Exam: Warm, Dry, Intact, Normal Color, No Rash Course - Vital Signs Last Recorded V/S: Last Vital Signs Temp 36.6 C 11/03/18 06:44 Pulse 66 11/03/18 12:41 Resp 18 11/03/18 06:44 BP 184/122 H 11/03/18 12:41 Pulse Ox 95 11/03/18 12:41 - Orders/Labs/Meds Orders: Active Orders 24 hr Category Date Time Status Peripheral IV Care [RC] . DIRECTED Care 11/03/18 07:27 Active Peripheral IV Care [RC] . DIRECTED Care 11/03/18 07:28 Active Peripheral IV Insertion Adult [OM.PC] Routine Oth 11/03/18 07:27 Ordered Labs: Laboratory Tests 11/03/18 11/03/18 Range/Units 07:49 07:49 WBC 5.42 (4.23-9.07) K/mm3 RBC 4.53 L (4.63-6.08) M/mm3 Hgb 13.6 L (13.7-17.5) gm/L Hct 38.3 L (40.1-51.0) % MCV 84.5 (79.0-92.2) fl MCH 30.0 (25.7-32.2) pg MCHC 35.5 (32.2-35.5) g/dl RDW Std Deviation 42.1 (35.1-43.9) fL Plt Count 165 (163-337) K/mm3 MPV 9.2 L (9.4-12.3) fl Neut % (Auto) 62.9 (34.0-67.9) % Lymph % (Auto) 24.9 (21.8-53.1) % [place] % (Auto) 10.5 (5.3-12.2) % Eos % (Auto) 1.1 (0.8-7.0) Baso % (Auto) 0.6 (0.1-1.2) % Neut # (Auto) 3.41 (1.78-5.38) K/mm3 Lymph # (Auto) 1.35 (1.32-3.57) K/mm3 [place] # (Auto) 0.57 (0.30-0.82) K/mm3 Eos # (Auto) 0.06 (0.04-0.54) K/mm3 Baso # (Auto) 0.03 (0.01-0.08) K/mm3 Sodium 129 L (136-145) mEq/L Potassium 3.3 L (3.5-5.1) mEq/L Chloride 91 L (98-107) mEq/L Carbon Dioxide 27 (21-32) mEq/L Anion Gap 14.3 (5-15) BUN 7 (7-18) mg/dL Creatinine 0.8 (0.7-1.3) mg/dL Est Cr Clr Drug Dosing 87.15 mL/min Estimated GFR (MDRD) > 60 (>60) mL/min BUN/Creatinine Ratio 8.8 L (14-18) Glucose 105 (80-115) mg/dL Calcium 9.0 (8.5-10.1) mg/dL Total Bilirubin 0.4 (0.2-1.0) mg/dL AST 17 (15-37) U/L ALT 18 (16-63) U/L Alkaline Phosphatase 89 (46-116) U/L Total Protein 6.9 (6.4-8.2) g/dl Albumin 4.0 (3.4-5.0) g/dl Globulin 2.9 gm/dL Albumin/Globulin Ratio 1.4 (1-2) Meds: Medications Discontinued Medications Generic Name Dose Route Start Last Admin Trade Name Freq PRN Reason Stop Dose Admin Acetaminophen/Butalbital/Caffeine 2 tab 11/03/18 07:28 11/03/18 07:57 Fioricet 325-50-40 Mg PO 11/03/18 07:29 2 tab ONETIME ONE Administration Diphenhydramine HCl 50 mg 11/03/18 08:37 11/03/18 08:58 Benadryl IVPUSH 11/03/18 08:38 50 mg ONETIME ONE Administration Prochlorperazine Edisylate 10 52 mls @ 150 mls/hr 11/03/18 08:37 11/03/18 08: 57 mg/ Sodium Chloride IV 11/03/18 08:57 150 mls/hr ONETIME ONE Administration Sodium Chloride 1,000 mls @ 1,000 mls/hr 11/03/18 08:38 11/03/18 08:58 Normal Saline IV 11/03/18 09:37 1,000 mls/hr ONETIME ONE Administration Ketorolac Tromethamine 30 mg 11/03/18 07:27 11/03/18 07:45 Toradol IVPUSH 11/03/18 07:28 30 mg ONETIME ONE Administration Lorazepam 2 mg 11/03/18 07:27 11/03/18 07:45 Ativan IVPUSH 11/03/18 07:28 2 mg ONETIME ONE Administration Pregabalin 150 mg 11/03/18 07:28 11/03/18 07:57 Lyrica PO 11/03/18 07:29 150 mg ONETIME ONE Administration Sodium Chloride 10 ml 11/03/18 07:28 11/03/18 07:46 Saline Flush FLUSH 10 ml ASDIRECTED PRN Administration Keep Vein Open Tramadol HCl 100 mg 11/03/18 07:28 11/03/18 07:45 Ultram PO 11/03/18 07:29 100 mg ONETIME ONE Administration - Re-Assessments/Exams Free Text/Narrative Re-Assessment/Exam: 11/03/18 07:49 Home meds of Fioricet, tramadol, and Lyrica ordered. Patient is extremely anxious this morning and I think this is driving his symptoms. We'll give Ativan 2 mg IV and reassess. 11/03/18 09:35 Sleeping comfortably after benadryl + compazine for headache. Will reeval when awake and anticipate discharge. His sodium is mildly low at 129, he's had trouble with low sodium previously. Will advise water restriction and PCP recheck. He appears euvolemic. Departure - Departure Time of Disposition: 11:00 Disposition: Home, Self-Care 01 Clinical Impression: Anxiety Chronic pain Qualifiers: Chronic pain type: chronic pain syndrome Qualified Code(s): G89.4 - Chronic pain syndrome - Discharge Information Instructions: Generalized Anxiety Disorder, Adult Referrals: Christofer Macdonald MD [Primary Care Provider] - Forms: ED Department Discharge Additional Instructions: 1. Continue your usual medications for pain and anxiety. Follow up with your primary care provider as soon as able to discuss. 2. Your sodium today is 129 which is low but OK. Drink a normal but not excessive amount of water. Eat plenty of salt containing foods. - My Orders Last 24 Hours: My Active Orders 11/03/18 07:27 Peripheral IV Care [RC] . DIRECTED Peripheral IV Insertion Adult [OM.PC] Routine 11/03/18 07:28 Peripheral IV Care [RC] . DIRECTED - Assessment/Plan Last 24 Hours: My Active Orders 11/03/18 07:27 Peripheral IV Care [RC] . DIRECTED Peripheral IV Insertion Adult [OM.PC] Routine 11/03/18 07:28 Peripheral IV Care [RC] . DIRECTED
[2018-11-03] MEDS ORDERED: diphenhydrAMINE 50 MG/ML SDV IVPUSH ONE (08:37)
[2018-11-03] MEDS ORDERED: Prochlorperazine 10 MG in Sodium Chloride 0.9% 50 ML IV ONE (08:37)
[2018-11-03] MEDS ORDERED: Sodium Chloride 0.9% 1,000 ML IV ONE (08:38)
[2018-11-03 12:53] VITALS: BP 184/122
== END 2018-11-03 13:27 | disposition home or self-care (01) ==
LOC: JD.ED 06:37
DX: G89.4 Chronic pain syndrome (principal); F41.9 Anxiety disorder, unspecified; F32.9 Major depressive disorder, single episode, unspecified; I10 Essential (primary) hypertension; E78.00 Pure hypercholesterolemia, unspecified; Z79.899 Other long term (current) drug therapy; Z88.6 Allergy status to analgesic agent; Z88.1 Allergy status to other antibiotic agents; Z88.5 Allergy status to narcotic agent; Z88.2 Allergy status to sulfonamides
CPT/HCPCS: 36415; 80053; 85025; 96365; 96375; 99284; A9270; J0780; J1200; J1885; J2060; J7040; J7050; 99283

== ENCOUNTER 2019-01-04 11:22 | Emergency (ER) | payer MEDICARE, OTHER ==
[2019-01-04 11:38] VITALS: BP 167/94
[2019-01-04] MEDS ORDERED: HYDROmorphone 1 MG/ML Syringe IVPUSH ONE ×2 (11:52→13:17)
[2019-01-04] MEDS ORDERED: LORazepam 2 MG/ML SDV IVPUSH ONE ×2 (11:56→13:17)
[2019-01-04] MEDS ORDERED: Ondansetron 4 MG/2 ML SDV IVPUSH ONE (11:57)
[2019-01-04] MEDS ORDERED: Dextrose 5%-0.9% NaCl 1,000 ML IV SCH (12:00)
--- NOTE | 2019-01-04 12:01 | EDM.PDOC ---
ED HPI GENERAL MEDICAL PROBLEM - General Chief Complaint: General Stated Complaint: PAIN ALL OVER BODY Time Seen by Provider: 01/04/19 11:56 Source of Information: Reports: Patient History Limitations: Reports: No Limitations - History of Present Illness INITIAL COMMENTS - FREE TEXT/NARRATIVE: 68-year-old male presents to the ED with exacerbation of chronic pain syndrome- fibromyalgia syndrome. often attends the ED with flareups when he can't eat or drink much and has no way of bringing the pain under control. He is currently on a fentanyl patch 100 g per hour right upper abdomen. He has developed an allergy to the adhesive and has square contact dermatitis rebolledo on his left upper abdomen. Patient has apparently started gabapentin hours considering starting gabapentin 300 mg 3 times a day as Lyrica was found to be too expensive. I'll review his med list he is on Lyrica 150 mg 3 times a day. Patient has a history of chronic hyponatremia as he drinks mostly water and no juices. When severely hyponatremic this often exacerbates his fibromyalgia syndrome as well. Is contributes to his weakness and nausea. Is had previous total colectomy and has chronic diarrhea which contributes to his metabolic imbalance. He has chronic headaches. He's had 14 surgeries on his lower back due to injury to the dural sac with dural leak. He has fusion of the lumbar spine. Current pain is worse in his neck low back lower abdomen upper thighs and around his knees. He has not slept for the last 2 nights. This often reciprocates exacerbation of fibromyalgia syndrome. Onset: Other (Patient has chronic fibromyalgia syndrome which occasionally worsens particularly when he cannot get appropriate sleep) Duration: Chronic, Waxing/Waning (Worse the last 2-3 days) Location: Reports: Generalized Quality: Reports: Ache, Burning (Generalized aches and pains particularly right shoulder neck low back and thighs.), Sharp, Stabbing, Other (Paresthesias) Severity: Severe Improves with: Reports: None (He reports 10 out of 10 pain) Worsens with: Reports: None Context: Denies: Activity, Exercise, Lifting, Sick Contact, Trauma, Other Associated Symptoms: Reports: Headaches, Loss of Appetite, Malaise, Nausea/ Vomiting (Intermittent nausea with no vomiting), Shortness of Breath (Mild), Other (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 Denies: Confusion, Chest Pain, Cough, cough w sputum, Diaphoresis, Fever/Chills (Chronically) Treatments CASHIER RECEPTIONIST: Reports: Other (see below) (No recent changes to medications.) Generalized Pain Score (Numeric/FACES): 8 - Related Data Allergies Allergy/AdvReac Type Severity Reaction Status Date / Time amitriptyline Allergy Other Verified 09/16/18 06:32 amlodipine besylate Allergy Anaphylactic Verified 09/16/18 06:32 [From Norvasc] Shock mirtazapine [From Remeron] Allergy Anxiety Verified 09/16/18 06:32 propoxyphene napsylate Allergy Rash Verified 09/16/18 06:32 [From Darvocet-N 100] sulfamethoxazole Allergy Other Verified 09/16/18 06:32 [From Bactrim] trimethoprim [From Bactrim] Allergy Other Verified 09/16/18 06:32 acetaminophen [From Percocet] AdvReac Hallucinati Verified 09/16/18 06:32 ons cephalexin [Cephalexin] AdvReac Vomiting Verified 09/16/18 06:32 morphine AdvReac Nausea Verified 09/16/18 06:32 oxycodone [From Percocet] AdvReac Hallucinati Verified 09/16/18 06:32 ons Home Meds: Home Meds Allopurinol [Zyloprim] 150 mg PO BID 02/04/14 [History] Famotidine [Pepcid] 20 mg PO BID PRN 02/04/14 [History] Omeprazole [Prilosec] 20 mg PO BID 02/04/14 [History] Potassium Chloride [Klor-Con 10] 20 meq PO DAILY 02/04/14 [History] Rosuvastatin [Crestor] 20 mg PO DAILY 02/04/14 [History] diazePAM [Valium] 5 mg PO Q8H 02/04/14 [History] Calcium Carbonate [Tums] 2,000 mg PO DAILY 02/20/14 [History] Cholecalciferol (Vitamin D3) [Vitamin D3] 4,000 unit PO DAILY 09/01/14 [History] Pregabalin [Lyrica] 150 mg PO TID 09/06/14 [History] Acetaminophen [Tylenol] 500 mg PO Q4H PRN 03/14/16 [History] Aspirin [Halfprin] 81 mg PO DAILY 03/14/16 [History] Hydrocortisone [Cortef] 5 mg PO PCDINNER 03/14/16 [History] Simethicone 125 mg PO BID 03/14/16 [History] B1/B2/Niacin/B12/Protease [B-Complex with B-12 Tablet] 1 each PO DAILY 03/28/16 [History] fentaNYL [Duragesic] 100 mcg TD Q48H 03/28/16 [History] traMADol [Ultram] 50 mg PO Q6H PRN 03/28/16 [History] Ferrous Sulfate 325 mg PO DAILY 09/10/16 [History] Butalbital/Aspirin/Caffeine [Fiorinal 50-325-40 MG] 1 tab PO Q6H PRN 08/26/17 [ History] Lactobacillus Acidophilus [Acidophilus] 1 each PO DAILY 08/26/17 [History] Docusate Sodium [Colace] 200 mg PO BID 05/07/18 [History] Hydrocortisone [Cortef] 10 mg PO DAILY 05/07/18 [History] Na Phos,M-B/Na Phos,DI-B [Fleet Enema] 1 dose RECTAL ASDIRECTED PRN 05/13/18 [ History] Losartan [Cozaar] 50 mg PO DAILY 06/24/18 [History] Polyethylene Glycol 3350 [Miralax] 17 gram PO BID 08/22/18 [History] PARoxetine [Paxil] 20 mg PO DAILY 09/16/18 [History] Past Medical History HEENT History: Reports: Hard of Hearing, Impaired Vision Other HEENT History: wears glasses, dentures Cardiovascular History: Reports: Arrhythmia, High Cholesterol, Hypertension, Pacemaker, Other (See Below) Other Cardiovascular History: sick sinus syndrome Respiratory History: Reports: SOB Gastrointestinal History: Reports: Bowel Obstruction, Other (See Below) Other Gastrointestinal History: chronic abd pain Genitourinary History: Reports: Retention, Urinary, Other (See Below) Other Genitourinary History: Urinary frequency, prostatitis MANAGEMENT SPECIALIST History: Reports: None Musculoskeletal History: Reports: Back Pain, Chronic, Fibromyalgia, Osteoarthritis, Other (See Below) Other Musculoskeletal History: carpal tunnel syndrome bilaterally Neurological History: Reports: Headaches, Chronic, Neuropathy, Peripheral, Other (See Below) Other Neuro History: dura-fluid leak with patch Psychiatric History: Reports: Anxiety, Depression, Other (See Below) Other Psychiatric History: chronic pain syndrome, chronic fatigue Endocrine/Metabolic History: Reports: Other (See Below) Other Endocrine/Metabolic History: adrenal insufficiancy Hematologic History: Reports: Anemia, Iron Deficiency Other Hematologic History: hypokalemia Immunologic History: Reports: None Oncologic (Cancer) History: Reports: None - Past Surgical History HEENT Surgical History: Reports: Naso-Sinus Surgery, Tonsillectomy Cardiovascular Surgical History: Reports: Pacer GI Surgical History: Reports: Colon, Colonoscopy, Colostomy, EGD, Other (See Below) Other GI Surgeries/Procedures: colon resection w/ colostomy and reversal Endocrine Surgical History: Reports: Other (See Below) Other Endocrine Surgeries/Procedures: nonfunctioning adrenal gland Neurological Surgical History: Reports: Vertebroplasty Other Neurological Surgeries/Procedures: Nerve block Musculoskeletal Surgical History: Reports: Carpal Tunnel, Hip Replacement, Other (See Below) Other Musculoskeletal Surgeries/Procedures:: 14 back surgeries, ruptured discs, right total hip, right total knee, carpal tunnel procedures, trigger finger procedure Dermatological Surgical History: Reports: Skin Graft Social & Family History - Family History Family Medical History: Noncontributory Other HEENT Family History: Pt states daughter is blind in one eye. Cardiac: Reports: CAD, [place] Other Cardiac Family History: Pt states Father @ 53y/o. Oncologic: Reports: Bladder Other Oncologic Family History: Pt states daughter has rare bladder CA and also lost her site in one eye from it. - Tobacco Use Smoking Status *Q: Former Smoker Used Tobacco, but Quit: Yes Month/Year Tobacco Last Used: 55 yr - Caffeine Use Caffeine Use: Reports: Soda Other Caffeine Use: occasional - Recreational Drug Use Recreational Drug Use: No - Living Situation & Occupation Living situation: Reports: with Spouse ED ROS GENERAL - Review of Systems Review Of Systems: See Below Constitutional: Reports: Malaise, Weakness, Fatigue, Decreased Appetite, Weight Loss. Denies: Fever, Chills HEENT: Reports: Glasses Respiratory: Reports: Shortness of Breath. Denies: No Symptoms, Wheezing, Pleuritic Chest Pain, Cough Cardiovascular: Reports: Blood Pressure Problem, Dyspnea on Exertion, Lightheadedness, Palpitations. 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 Has had previous total colectomy.) : Reports: Frequency, Other (Him hesitancy in starting his urinary flow. Known BPH.) Musculoskeletal: Reports: Neck Pain, Shoulder Pain, Back Pain (Particularly his right shoulder. He said previous surgery on his shoulder. It will back pain with 14 surgeries on his L-spine in the past.), Joint Pain (All of his joints hurt), Muscle Pain Skin: Reports: Other (Has developed a contact dermatitis due to allergy to adhesive from the fentanyl patches. These are currently 100 mcg/h and are square in size. He is using them on his abdominal wall.) Neurological: Reports: Dizziness, Headache, Numbness, Paresthesia, Tingling, Difficulty Walking, Weakness. Denies: Confusion, Trouble Speaking (Rina in his feet and hands.), Change in Speech, Gait Disturbance Psychiatric: Reports: Anxiety, Depression, Mood Lability, Other Hematologic/Lymphatic: Reports: No Symptoms (Chronic insomnia) Immunologic: Reports: No Symptoms ED EXAM, GENERAL - Physical Exam Exam: See Below Exam Limited By: No Limitations General Appearance: Alert, WD/WN, Anxious, Mild Distress, Other Eye Exam: Bilateral Eye: Normal Inspection (No scleral icterus.) Throat/Mouth: Other Head: Atraumatic, Normocephalic (Tongue is mildly dry and coated) Neck: Normal Inspection, Full Range of Motion, Tender Lateral (Tender bilaterally.). No: Carotid Bruit (With pain at full lateral rotation and full flexion extension.), Lymphadenopathy (L), Lymphadenopathy (R) Respiratory/Chest: Lungs Clear (Mild tachypnea at rest.), Normal Breath Sounds, No Accessory Muscle Use, Chest Non-Tender, Respiratory Distress Cardiovascular: Normal Peripheral Pulses, Regular Rate, Rhythm, No Edema, No Gallop, No Murmur Peripheral Pulses: 3+: Posterior Tibial (L), Posterior Tibial (R), Dorsalis Pedis (L), Dorsalis Pedis (R) GI/Abdominal: Normal Bowel Sounds, Soft, Non-Tender, No Organomegaly, No Abnormal Bruit, No Mass, Pelvis Stable, Other (Well-healed abdominal scars) (Male) Exam: No Hernia Back Exam: Decreased Range of Motion, Other (Well-healed midline lumbar spinal surgical scars. He had what appears to be a lidocaine patch or some form of over -the-counter patch on his mid back that I removed he had forgotten there was even a patch there.). No: Full Range of Motion Extremities: Normal Range of Motion, Non-Tender (No active synovitis in knees or hips.), No Pedal Edema, Other (Atrophic musculature in his lower extremities as he is not walking very much.) Neurological: Alert, Oriented, CN II-XII Intact, Normal Cognition, No Motor/ Sensory Deficits Psychiatric: Anxious, Tearful Skin Exam: Warm, Dry, Intact, Normal Color, Other (Square contact dermatitis rash left upper and lower abdomen at placement of fentanyl patches. Is allergic to the adhesive in the fentanyl patch.) Course - Vital Signs Last Recorded V/S: Last Vital Signs Temp 36.3 C 01/04/19 11:36 Pulse 69 01/04/19 11:36 Resp 20 01/04/19 11:36 BP 167/94 H 01/04/19 11:36 Pulse Ox 96 01/04/19 11:36 - Orders/Labs/Meds Orders: Active Orders 24 hr Category Date Time Status Shoulder Comp Rt [CR] Stat Exams 01/04/19 11:57 Taken Labs: Laboratory Tests 01/04/19 01/04/19 Range/Units 12:20 12:20 WBC 5.00 (4.23-9.07) K/mm3 RBC 4.58 L (4.63-6.08) M/mm3 Hgb 14.0 (13.7-17.5) gm/L Hct 40.7 (40.1-51.0) % MCV 88.9 (79.0-92.2) fl MCH 30.6 (25.7-32.2) pg MCHC 34.4 (32.2-35.5) g/dl RDW Std Deviation 45.6 H (35.1-43.9) fL Plt Count 170 (163-337) K/mm3 MPV 8.6 L (9.4-12.3) fl Neutrophils % (Manual) 77 H (40-60) % Band Neutrophils % 0 (0-10) % Lymphocytes % (Manual) 17 L (20-40) % Atypical Lymphs % 0 % Monocytes % (Manual) 4 (2-10) % Eosinophils % (Manual) 2 (0.8-7.0) % Basophils % (Manual) 0 L (0.2-1.2) Platelet Estimate Adequate RBC Morph Comment Normal Sodium 133 L (136-145) mEq/L Potassium 4.4 (3.5-5.1) mEq/L Chloride 97 L (98-107) mEq/L Carbon Dioxide 28 (21-32) mEq/L Anion Gap 12.4 (5-15) BUN 6 L (7-18) mg/dL Creatinine 0.9 (0.7-1.3) mg/dL Est Cr Clr Drug Dosing 76.37 mL/min Estimated GFR (MDRD) > 60 (>60) mL/min BUN/Creatinine Ratio 6.7 L (14-18) Glucose 115 (80-115) mg/dL Serum Osmolality 279 L (280-300) mosm/kg Calcium 9.1 (8.5-10.1) mg/dL Magnesium 1.9 (1.8-2.4) mg/dl Total Bilirubin 0.2 (0.2-1.0) mg/dL AST 16 (15-37) U/L ALT 22 (16-63) U/L Alkaline Phosphatase 76 (46-116) U/L C-Reactive Protein 0.5 (<1.0) mg/dL Total Protein 6.7 (6.4-8.2) g/dl Albumin 3.8 (3.4-5.0) g/dl Globulin 2.9 gm/dL Albumin/Globulin Ratio 1.3 (1-2) Meds: Medications Discontinued Medications Generic Name Dose Route Start Last Admin Trade Name Freq PRN Reason Stop Dose Admin Hydromorphone HCl 2 mg 01/04/19 11:52 01/04/19 12:17 Dilaudid IVPUSH 01/04/19 11:53 2 mg ONETIME ONE Administration Hydromorphone HCl 1 mg 01/04/19 13:17 01/04/19 13:28 Dilaudid IVPUSH 01/04/19 13:18 1 mg ONETIME ONE Administration Dextrose/Sodium Chloride 1,000 mls @ 999 mls/hr 01/04/19 12:00 01/04/19 12:17 Dextrose 5%-Normal Saline IV 999 mls/hr ASDIRECTED LUCIAN Administration Lorazepam 1 mg 01/04/19 11:56 01/04/19 12:20 Ativan IVPUSH 01/04/19 11:57 1 mg ONETIME ONE Administration Lorazepam 1 mg 01/04/19 13:17 01/04/19 13:27 Ativan IVPUSH 01/04/19 13:18 1 mg ONETIME ONE Administration Ondansetron HCl 4 mg 01/04/19 11:57 01/04/19 12:21 Zofran IVPUSH 01/04/19 11:58 4 mg ONETIME ONE Administration - Radiology Interpretation Free Text/Narrative:: 68-year-old male presents to the ED with acute exacerbation of chronic pain syndrome labeled as fibromyalgia. Patient suffers from chronic major depression and chronic pain syndrome. Occasionally he gets an exacerbation of his chronic pain and he doesn't know what else to do. He drinks a lot of water and tends to be hyponatremic which seems to exacerbate the fibromyalgia. He hurt his right shoulder last night with certain movements and it's cracked and hurting him. Said previous surgery with rotator cuff repair and acromioplasty left shoulder greater than 12 years ago. He has chronic low back pain with 14 different surgeries on his lumbar spine performed in the past. It is fused. Has pain throughout his neck and thoracic spine both upper extremities both lower extremities in all major muscle groups. He is currently on the final patches 100 g per hour which is not helping at present. Plan IV D5 normal saline at open. Labs will be done to check on his electrolyte status. Given Dilaudid 2 mg IV as he has a significant tolerance to narcotics. Ativan 1 mg IV to provide some degree of anxiety relief and sedation. Zofran 4 mg IV for nausea relief. X- rays of the right shoulder to be done. - Re-Assessments/Exams Free Text/Narrative Re-Assessment/Exam: 01/04/19 13:05 x-rays of the right shoulder show minimal degenerative changes at the acromioclavicular joint but otherwise the glenoid and true shoulder joint are within normal limits.Labs are back showing a white count of 5.0. Differential pending. Hemoglobin 14.0 with hematocrit 40.7. Glucose 170,000. Sodium slightly low at 133. Potassium 4.4. Chloride 97 with a bicarbonate 28. Anion gap is 12.4. B1 is 6 with a creatinine of 0.9. GFR remains greater than 60. Glucose is 1:15 serum osmolality is slightly low at 279. Serum is 9.1. Magnesium is 1.9. Liver function is normal. C-reactive protein is 0.5. Total protein is 6.7 with albumin fraction of 3.80 labs are essentially normal other than minimal hyponatremia which is dilutional. 01/04/19 13:16 patient advised of the laboratory and x-ray findings. He is still having pain rated at 5 out of 10. Mostly in his low back and feet. Will repeat Dilaudid 1 mg IV with Ativan 1 mg IV. He clinically appears much more relaxed and less anxious. 01/04/19 14:45 patient has been resting comfortably in the ED after last dose of analgesia and Ativan. Will therefore be discharged to home where he can sleep and ketchup on lost sleep. Your medications that he's been previously prescribed. I did not prescribe anything new. Departure - Departure Time of Disposition: 14:40 Disposition: Home, Self-Care 01 Condition: Fair Clinical Impression: Chronic idiopathic pain syndrome, Fibromyalgia affecting multiple sites, Hyponatremia - Discharge Information *PRESCRIPTION DRUG MONITORING PROGRAM REVIEWED*: Not Applicable *COPY OF PRESCRIPTION DRUG MONITORING REPORT IN PATIENT MARS: Not Applicable Instructions: Hyponatremia, [id number], Chronic Pain, Adult Referrals: Christofer Macdonald MD [Primary Care Provider] - Forms: ED Department Discharge Additional Instructions: Evaluation the emergency room today in regards to acute exacerbation of chronic pain syndrome-fibromyalgia syndrome. With her sleep the last few days and ability to eat and drink. He will rehydrated with a liter of IV fluids. Her pain was treated with Dilaudid 2 mg IV initially and 1 mg after this. Also given Ativan 1 mg IV 2 doses to help relax you and allow you to sleep a little. Given Zofran for nausea relief 4 mg IV. Lab testing today revealed only mild hyponatremia. Sodium was 133 which is much better than your usual. It still shows that you're getting a bit too much water and not quite enough juices in your system. No other major abnormalities were appreciated on blood work. Continue pain management as you have been doing. Follow-up with personal care physician as planned. Suggest home to rest/sleep for a couple of hours. - My Orders Last 24 Hours: My Active Orders 01/04/19 11:57 Shoulder Comp Rt [CR] Stat - Assessment/Plan Last 24 Hours: My Active Orders 01/04/19 11:57 Shoulder Comp Rt [CR] Stat
--- NOTE | 2019-01-05 06:58 | CR ---
Right shoulder: Three views of the right shoulder were obtained. Comparison: Previous right shoulder exam of 01/24/11. Mild joint space narrowing is seen within the acromioclavicular joint. No abnormal inferior spurring is seen within the acromioclavicular joint. Glenohumeral joint appears within normal limits. No fracture, dislocation or other bony abnormality is identified. Impression: 1. Minimal degenerative change within the acromioclavicular joint as described above. 2. Right shoulder study is otherwise unremarkable. Diagnostic code #2
== END 2019-01-04 14:55 | disposition home or self-care (01) ==
LOC: JD.ED 11:22
DX: G89.4 Chronic pain syndrome (principal); M79.7 Fibromyalgia; E87.1 Hypo-osmolality and hyponatremia; I10 Essential (primary) hypertension; E78.00 Pure hypercholesterolemia, unspecified; F41.9 Anxiety disorder, unspecified; F32.9 Major depressive disorder, single episode, unspecified; D64.9 Anemia, unspecified; Z79.899 Other long term (current) drug therapy; Z87.891 Personal history of nicotine dependence; Z88.8 Allergy status to other drugs, medicaments and biological substances; Z79.82 Long term (current) use of aspirin; Z88.5 Allergy status to narcotic agent; Z88.2 Allergy status to sulfonamides; Z88.1 Allergy status to other antibiotic agents; Z88.6 Allergy status to analgesic agent
CPT/HCPCS: 36415; 73030; 80053; 83735; 83930; 85007; 85027; 86140; 96361; 96374; 96375; 96376; 99284; J1170; J2060; J2405; J7042

== ENCOUNTER 2019-01-10 08:44 | Emergency (ER) | payer MEDICARE, OTHER ==
[2019-01-10] MEDS ORDERED: Dextrose 5%-0.9% NaCl 1,000 ML IV SCH (09:00)
[2019-01-10 09:14] VITALS: BP 130/76
[2019-01-10] MEDS ORDERED: Metoclopramide 10 MG/2 ML SDV IVPUSH ONE (09:31)
[2019-01-10] MEDS ORDERED: LORazepam 2 MG/ML SDV IVPUSH ONE (09:31)
[2019-01-10] MEDS ORDERED: HYDROmorphone 1 MG/ML Syringe IVPUSH ONE ×2 (09:32→12:37)
[2019-01-10] MEDS ORDERED: Alum Hydrox/Mag Hydrox/Simeth 30 ML, Lidocaine 2% 15 ML PO ONE ×2 (09:33)
--- NOTE | 2019-01-10 09:35 | EDM.PDOC ---
ED HPI GENERAL MEDICAL PROBLEM - General Chief Complaint: General Stated Complaint: HEADACHE,ABD PAIN AND PAIN ALL OVER Time Seen by Provider: 01/10/19 09:29 Source of Information: Reports: Patient, Family (spouse) History Limitations: Reports: No Limitations - History of Present Illness INITIAL COMMENTS - FREE TEXT/NARRATIVE: 68-year-old male once again attends the ED with diffuse multiple complaints. He has a severe headache. He has neck pain .He has diffuse upper abdominal pain burning in quality. Stools are loose and he is taking MiraLAX 3 times daily due to chronic constipation issues. He can hardly eat. Is afraid to take his medicines as they seem to be making the burning worse. He has tried Pepto- Bismol and is on Prilosec. Complains of back pain and generalized myalgia. He has labeled with fibromyalgia syndrome. He is very anxious and has not been able to sleep for this last several days. Merry problem appears to be generalized severe anxiety disorder. Compounded by chronic major depression. Onset: Other (Chronic problems just worse than normal.) Duration: Chronic Location: Reports: Generalized Quality: Reports: Ache (Wording abdominal discomfort headache backache), Burning Severity: Severe (generalized myalgia and body ache.) Improves with: Reports: None ( to 10 ) Worsens with: Reports: None Context: Denies: Activity, Exercise, Lifting, Sick Contact, Trauma, Other Associated Symptoms: Reports: Diaphoresis, Headaches, Loss of Appetite, Malaise , Nausea/Vomiting, Weakness. Denies: Confusion, Chest Pain, Cough, cough w sputum, Fever/Chills, Rash, Seizure (Nausea without vomiting), Shortness of Breath, Syncope Treatments EQUIP TECH: Reports: Other (see below) (Pepto-Bismol and Prilosec.) Generalized Pain Score (Numeric/FACES): 8 - Related Data Allergies Allergy/AdvReac Type Severity Reaction Status Date / Time amitriptyline Allergy Other Verified 01/10/19 09:11 amlodipine besylate Allergy Anaphylactic Verified 01/10/19 09:11 [From Norvasc] Shock mirtazapine [From Remeron] Allergy Anxiety Verified 01/10/19 09:11 propoxyphene napsylate Allergy Rash Verified 01/10/19 09:11 [From Darvocet-N 100] sulfamethoxazole Allergy Other Verified 01/10/19 09:11 [From Bactrim] trimethoprim [From Bactrim] Allergy Other Verified 01/10/19 09:11 acetaminophen [From Percocet] AdvReac Hallucinati Verified 01/10/19 09:11 ons cephalexin [Cephalexin] AdvReac Vomiting Verified 01/10/19 09:11 morphine AdvReac Nausea Verified 01/10/19 09:11 oxycodone [From Percocet] AdvReac Hallucinati Verified 01/10/19 09:11 ons Home Meds: Home Meds Allopurinol [Zyloprim] 150 mg PO BID 02/04/14 [History] Famotidine [Pepcid] 20 mg PO BID PRN 02/04/14 [History] Omeprazole [Prilosec] 20 mg PO BID 02/04/14 [History] Potassium Chloride [Klor-Con 10] 20 meq PO DAILY 02/04/14 [History] Rosuvastatin [Crestor] 20 mg PO DAILY 02/04/14 [History] diazePAM [Valium] 5 mg PO Q8H 02/04/14 [History] Calcium Carbonate [Tums] 2,000 mg PO DAILY 02/20/14 [History] Cholecalciferol (Vitamin D3) [Vitamin D3] 4,000 unit PO DAILY 09/01/14 [History] Acetaminophen [Tylenol] 500 mg PO Q4H PRN 03/14/16 [History] Aspirin [Halfprin] 81 mg PO DAILY 03/14/16 [History] Hydrocortisone [Cortef] 5 mg PO PCDINNER 03/14/16 [History] Simethicone 125 mg PO BID 03/14/16 [History] B1/B2/Niacin/B12/Protease [B-Complex with B-12 Tablet] 1 each PO DAILY 03/28/16 [History] fentaNYL [Duragesic] 100 mcg TD Q48H 03/28/16 [History] traMADol [Ultram] 50 mg PO Q6H PRN 03/28/16 [History] Ferrous Sulfate 325 mg PO DAILY 09/10/16 [History] Butalbital/Aspirin/Caffeine [Fiorinal 50-325-40 MG] 1 tab PO Q6H PRN 08/26/17 [ History] Lactobacillus Acidophilus [Acidophilus] 1 each PO DAILY 08/26/17 [History] Docusate Sodium [Colace] 200 mg PO BID 05/07/18 [History] Hydrocortisone [Cortef] 10 mg PO DAILY 05/07/18 [History] Na Phos,M-B/Na Phos,DI-B [Fleet Enema] 1 dose RECTAL ASDIRECTED PRN 05/13/18 [ History] Losartan [Cozaar] 50 mg PO DAILY 06/24/18 [History] Polyethylene Glycol 3350 [Miralax] 17 gram PO BID 08/22/18 [History] PARoxetine [Paxil] 20 mg PO DAILY 09/16/18 [History] Gabapentin [Neurontin] 300 mg PO BID 01/10/19 [History] QUEtiapine [SEROquel] 50 mg PO DAILY #30 tab 01/10/19 [Rx] Past Medical History HEENT History: Reports: Hard of Hearing, Impaired Vision Other HEENT History: wears glasses, dentures Cardiovascular History: Reports: Arrhythmia, High Cholesterol, Hypertension, Pacemaker, Other (See Below) Other Cardiovascular History: sick sinus syndrome Respiratory History: Reports: SOB Gastrointestinal History: Reports: Bowel Obstruction, Other (See Below) Other Gastrointestinal History: chronic abd pain Genitourinary History: Reports: Retention, Urinary, Other (See Below) Other Genitourinary History: Urinary frequency, prostatitis 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 Musculoskeletal History: Reports: Back Pain, Chronic, Fibromyalgia, Osteoarthritis, Other (See Below) Other Musculoskeletal History: carpal tunnel syndrome bilaterally Neurological History: Reports: Headaches, Chronic, Neuropathy, Peripheral, Other (See Below) Other Neuro History: dura-fluid leak with patch Psychiatric History: Reports: Anxiety, Depression, Other (See Below) Other Psychiatric History: chronic pain syndrome, chronic fatigue Endocrine/Metabolic History: Reports: Other (See Below) Other Endocrine/Metabolic History: adrenal insufficiancy Hematologic History: Reports: Anemia, Iron Deficiency Other Hematologic History: hypokalemia Immunologic History: Reports: None Oncologic (Cancer) History: Reports: None - Past Surgical History HEENT Surgical History: Reports: Naso-Sinus Surgery, Tonsillectomy Cardiovascular Surgical History: Reports: Pacer GI Surgical History: Reports: Colon, Colonoscopy, Colostomy, EGD, Other (See Below) Other GI Surgeries/Procedures: colon resection w/ colostomy and reversal Endocrine Surgical History: Reports: Other (See Below) Other Endocrine Surgeries/Procedures: nonfunctioning adrenal gland Neurological Surgical History: Reports: Vertebroplasty Other Neurological Surgeries/Procedures: Nerve block Musculoskeletal Surgical History: Reports: Carpal Tunnel, Hip Replacement, Other (See Below) Other Musculoskeletal Surgeries/Procedures:: 14 back surgeries, ruptured discs, right total hip, right total knee, carpal tunnel procedures, trigger finger procedure Dermatological Surgical History: Reports: Skin Graft Social & Family History - Family History Family Medical History: Noncontributory Other HEENT Family History: Pt states daughter is blind in one eye. Cardiac: Reports: CAD, PA Other Cardiac Family History: Pt states Father @ 53y/o. Oncologic: Reports: Bladder Other Oncologic Family History: Pt states daughter has rare bladder CA and also lost her site in one eye from it. - Tobacco Use Smoking Status *Q: Never Smoker Second Hand Smoke Exposure: No - Caffeine Use Caffeine Use: Reports: None Other Caffeine Use: occasional - Living Situation & Occupation Living situation: Reports: with Spouse ED ROS GENERAL - Review of Systems Review Of Systems: See Below Constitutional: Reports: Malaise, Weakness, Fatigue, Diaphoresis, Decreased Appetite, Weight Loss. Denies: Fever, Chills HEENT: Reports: Glasses Respiratory: Denies: Shortness of Breath, Wheezing, Pleuritic Chest Pain, Cough , Sputum Cardiovascular: Reports: Dyspnea on Exertion, Lightheadedness, Palpitations. Denies: Chest Pain, Blood Pressure Problem, Claudication, Edema, Orthopnea Endocrine: Reports: Fatigue GI/Abdominal: Reports: Abdominal Pain, Constipation (Stools are loose from taking MiraLAX 3 times daily.), Diarrhea, Decreased Appetite ( Has a history of intermittent chronic severe constipation), Nausea. Denies: Distension, Flatus, Hematemesis, Hematochezia, Melena, Mucous in Stool, Stool Incontinence, Vomiting : Reports: Frequency Musculoskeletal: Reports: Neck Pain, Shoulder Pain, Back Pain, Joint Pain, Muscle Pain Skin: Reports: No Symptoms (Generalized myalgia.) Neurological: Reports: Dizziness, Difficulty Walking, Weakness, Other (Insomnia. ). Denies: Confusion, Numbness, Paresthesia, Syncope, Tingling, Trouble Speaking Psychiatric: Reports: Anxiety, Depression. Denies: Confusion, Cravings, Hallucinations, Homicidal Ideation, Mood Lability, Suicidal Ideation Hematologic/Lymphatic: Reports: No Symptoms Immunologic: Reports: No Symptoms ED EXAM, GENERAL - Physical Exam Exam: See Below Exam Limited By: No Limitations General Appearance: Alert, WD/WN, Moderate Distress (Extremely anxious. Doesn't know what to do with himself.) Eye Exam: Bilateral Eye: Normal Inspection (No scleral icterus) Ears: Normal TMs Throat/Mouth: Normal Inspection, Normal Lips (Tongue is mildly dry.), Normal Oropharynx, Other Head: Atraumatic, Normocephalic Neck: Normal Inspection, Supple, Non-Tender, Full Range of Motion. No: Carotid Bruit, Lymphadenopathy (L), Lymphadenopathy (R), Thyromegaly Respiratory/Chest: No Respiratory Distress, Lungs Clear, Normal Breath Sounds, Chest Non-Tender Cardiovascular: Normal Peripheral Pulses, Regular Rate, Rhythm, No Edema, No Gallop, No Murmur, No Rub Peripheral Pulses: 2+: Posterior Tibial (L), Posterior Tibial (R), Dorsalis Pedis (L), Dorsalis Pedis (R) GI/Abdominal: Normal Bowel Sounds, Non-Tender, No Organomegaly, No Abnormal Bruit, No Mass, Pelvis Stable, Other (Has well-healed midline surgical scars.) (Male) Exam: No Hernia Back Exam: Normal Inspection, Full Range of Motion. No: CVA Tenderness (L), CVA Tenderness (R) Extremities: Normal Inspection, Normal Range of Motion, Non-Tender Neurological: Alert, Oriented, CN II-XII Intact, Normal Cognition. No: Normal Gait Psychiatric: Anxious Skin Exam: Warm (Extremely anxious.), Dry, Intact, Normal Color, No Rash EKG INTERPRETATION EKG Date: 01/10/19 Time: 09:57 Rhythm: Other (Atrial paced rhythm at 65/m) Rate (Beats/Min): 65 [place]: Normal P-Wave: Absent QRS: Other (There is early R-wave transition V3 V4. Consider septal hypertrophy pattern.) ST-T: Other (T-wave inversion in lead 1 and aVL nonspecific. T wave flattening V3 to V6.) QT: Normal EKG Interpretation Comments: Abnormal ECG Course - Vital Signs Last Recorded V/S: Last Vital Signs Temp 36.8 C 01/10/19 09:13 Pulse 73 01/10/19 09:13 Resp 15 01/10/19 09:13 BP 130/76 04/06/19 09:13 Pulse Ox - Orders/Labs/Meds Orders: Active Orders 24 hr Category Date Time Status EKG Documentation Completion [RC] STAT Care 01/10/19 09:49 Active Labs: Laboratory Tests 01/10/19 01/10/19 01/10/19 Range/Units 09:10 09:10 09:10 WBC 8.12 (4.23-9.07) K/mm3 RBC 5.13 (4.63-6.08) M/mm3 Hgb 15.6 (13.7-17.5) gm/L Hct 43.7 (40.1-51.0) % MCV 85.2 (79.0-92.2) fl MCH 30.4 (25.7-32.2) pg MCHC 35.7 H (32.2-35.5) g/dl RDW Std Deviation 43.6 (35.1-43.9) fL Plt Count 191 (163-337) K/mm3 MPV 8.7 L (9.4-12.3) fl Neutrophils % (Manual) 79 H (40-60) % Band Neutrophils % 0 (0-10) % Lymphocytes % (Manual) 18 L (20-40) % Atypical Lymphs % 0 % Monocytes % (Manual) 3 (2-10) % Eosinophils % (Manual) 0 L (0.8-7.0) % Basophils % (Manual) 0 L (0.2-1.2) Platelet Estimate Adequate RBC Morph Comment Normal Sodium 123 L (136-145) mEq/L Potassium 3.5 (3.5-5.1) mEq/L Chloride 87 L (98-107) mEq/L Carbon Dioxide 25 (21-32) mEq/L Anion Gap 14.5 (5-15) BUN 6 L (7-18) mg/dL Creatinine 0.8 (0.7-1.3) mg/dL Est Cr Clr Drug Dosing 84.89 mL/min Estimated GFR (MDRD) > 60 (>60) mL/min BUN/Creatinine Ratio 7.5 L (14-18) Glucose 120 H (80-115) mg/dL Serum Osmolality (280-300) mosm/kg Calcium 9.6 (8.5-10.1) mg/dL Magnesium 2.0 (1.8-2.4) mg/dl Total Bilirubin 0.5 (0.2-1.0) mg/dL AST 22 (15-37) U/L ALT 26 (16-63) U/L Alkaline Phosphatase 96 (46-116) U/L C-Reactive Protein 1.6 H* (<1.0) mg/dL Total Protein 7.7 (6.4-8.2) g/dl Albumin 4.5 (3.4-5.0) g/dl Globulin 3.2 gm/dL Albumin/Globulin Ratio 1.4 (1-2) Lipase (73-393) U/L Urine Color (Yellow) Urine Appearance (Clear) Urine pH (5.0-8.0) Ur Specific Elmer (1.005-1.030) Urine Protein (Negative) Urine Glucose (UA) (Negative) Urine Ketones (Negative) Urine Occult Blood (Negative) Urine Nitrite (Negative) Urine Bilirubin (Negative) Urine Urobilinogen (0.2-1.0) Ur Leukocyte Esterase (Negative) H. pylori IgG Antibody Negative (NEGATIVE) 01/10/19 01/10/19 01/10/19 Range/Units 09:10 09:10 09:30 WBC (4.23-9.07) K/mm3 RBC (4.63-6.08) M/mm3 Hgb (13.7-17.5) gm/L Hct (40.1-51.0) % MCV (79.0-92.2) fl MCH (25.7-32.2) pg MCHC (32.2-35.5) g/dl RDW Std Deviation (35.1-43.9) fL Plt Count (163-337) K/mm3 MPV (9.4-12.3) fl Neutrophils % (Manual) (40-60) % Band Neutrophils % (0-10) % Lymphocytes % (Manual) (20-40) % Atypical Lymphs % % Monocytes % (Manual) (2-10) % Eosinophils % (Manual) (0.8-7.0) % Basophils % (Manual) (0.2-1.2) Platelet Estimate RBC Morph Comment Sodium (136-145) mEq/L Potassium (3.5-5.1) mEq/L Chloride (98-107) mEq/L Carbon Dioxide (21-32) mEq/L Anion Gap (5-15) BUN (7-18) mg/dL Creatinine (0.7-1.3) mg/dL Est Cr Clr Drug Dosing mL/min Estimated GFR (MDRD) (>60) mL/min BUN/Creatinine Ratio (14-18) Glucose (80-115) mg/dL Serum Osmolality 257 L (280-300) mosm/kg Calcium (8.5-10.1) mg/dL Magnesium (1.8-2.4) mg/dl Total Bilirubin (0.2-1.0) mg/dL AST (15-37) U/L ALT (16-63) U/L Alkaline Phosphatase (46-116) U/L C-Reactive Protein (<1.0) mg/dL Total Protein (6.4-8.2) g/dl Albumin (3.4-5.0) g/dl Globulin gm/dL Albumin/Globulin Ratio (1-2) Lipase 77 (73-393) U/L Urine Color Yellow (Yellow) Urine Appearance Clear (Clear) Urine pH 6.5 (5.0-8.0) Ur Specific Elmer 1.015 (1.005-1.030) Urine Protein Negative (Negative) Urine Glucose (UA) Negative (Negative) Urine Ketones Negative (Negative) Urine Occult Blood Trace-lysed H (Negative) Urine Nitrite Negative (Negative) Urine Bilirubin Negative (Negative) Urine Urobilinogen 0.2 (0.2-1.0) Ur Leukocyte Esterase Negative (Negative) H. pylori IgG Antibody (NEGATIVE) Meds: Medications Discontinued Medications Generic Name Dose Route Start Last Admin Trade Name Freq PRN Reason Stop Dose Admin Al Hydroxide/Mg Hydroxide 30 0 ml 01/10/19 09:33 01/10/19 09:38 ml/ Lidocaine HCl 15 ml PO 01/10/19 09:34 30 ml ONETIME ONE Administration Hydrocortisone Sodium Succinate 100 mg 01/10/19 09:58 01/10/19 10:03 Solu-Cortef IVPUSH 01/10/19 09:59 100 mg ONETIME ONE Administration Hydromorphone HCl 1 mg 01/10/19 09:32 01/10/19 09:39 Dilaudid IVPUSH 01/10/19 09:33 1 mg ONETIME ONE Administration Hydromorphone HCl 1 mg 01/10/19 12:37 01/10/19 12:42 Dilaudid IVPUSH 01/10/19 12:38 1 mg ONETIME ONE Administration Dextrose/Sodium Chloride 1,000 mls @ 500 mls/hr 01/10/19 09:00 01/10/19 09:16 Dextrose 5%-Normal Saline IV 500 mls/hr ASDIRECTED LUCIAN Administration Sodium Chloride 1,000 mls @ 999 mls/hr 01/10/19 12:00 01/10/19 12:18 Normal Saline IV 999 mls/hr ASDIRECTED LUCIAN Administration Lorazepam 2 mg 01/10/19 09:31 01/10/19 09:38 Ativan IVPUSH 01/10/19 09:32 2 mg ONETIME ONE Administration Metoclopramide HCl 7.5 mg 01/10/19 09:31 01/10/19 09:39 Reglan IVPUSH 01/10/19 09:32 7.5 mg ONETIME ONE Administration - Radiology Interpretation Free Text/Narrative:: 68-year-old male presents the ED with chief complaint of generalized myalgia. Severe headache insomnia generalized anxiety not able to sleep for the last several days. Diffuse abdominal burning discomfort which makes it difficult to take his pills or eat. Stools are loose but he is still taking his or juice with MiraLAX twice or 3 times daily to prevent constipation which is been a major issue for him. Clinically the patient has generalized severe anxiety disorder with underlying depression and fibromyalgia syndrome or somatic depression. This is a second time he is presented to the ED this week and he was here last week as well. Plan Dilaudid 1 mg IV with Ativan 2 mg IV and Reglan 7.5 mg IV. Portal 30 mg IV will be given as well. Routine labs including serum lipase to be done although labs don't usually show much other than a history of hyponatremia from constant drinking water not taking any juices. IV will be D5 normal saline at 500 mils per hour. GI cocktail will be ordered for abdominal burning discomfort. 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 - Re-Assessments/Exams Free Text/Narrative Re-Assessment/Exam: 01/10/19 11:49 White count is 8.12 with 79% neutrophils and no band cells reported. Hemoglobin is 15.6 with hematocrit of 43.7. Platelet callus 191,000. Sodium is low at 123. Potassium is 3.5. Chloride is 87 with a bicarbonate of 25. Anion gap is 14.5. BUN is 6. Creatinine is 0.8. Estimated GFR is 60. BUN/ creatinine ratio 7.5. Glucose is 120 with a serum osmolality very low at 257. Calcium is 9.6 with a magnesium of 2.0. Liver function is normal. C-reactive protein is 1.6. Lipase is 77. Urinalysis shows trace of lysed call blood cells. H. pylori antibody is negative. 01/10/19 15:15: Patient has been sleeping most the time he spent in the ED. He has just completed his second liter of IV normal saline to try and restore his serum sodium level to likely around 130. It was down to 123. Is a chronic problem for him as a drinks fluids mostly water and this is a dilutional hyponatremia. It likely was causing his upper abdominal discomfort and nausea making it difficult for him to eat. He has chronic generalized pain syndrome and aggravated by completely disrupted sleep pattern. He is unable to sleep and presents exhausted. Recently started on gabapentin 300 mg twice a day and with plans to increase to 3 times a day dosing in about a week to 10 days time. This is again in hopes of bringing his pain under control. I'm going to try him on Seroquel starting with 25 mg at bedtime for the next 4 days and then crit increased to 50 mg once daily at bedtime in the hopes of bringing his generalized anxiety and atypical depression with somatic presentation under control. The hope is that it may also help him sleep better. He will try and stop drinking so much water and replaced with juices and/or Gatorade Powerade as he's been instructed do so many times in the past. Discharged home in the care of his Departure - Departure Time of Disposition: 14:59 Disposition: Home, Self-Care 01 Condition: Fair Clinical Impression: Fibromyalgia syndrome, Chronic pain syndrome, Disrupted sleep-wake cycle - Discharge Information *PRESCRIPTION DRUG MONITORING PROGRAM REVIEWED*: Not Applicable *COPY OF PRESCRIPTION DRUG MONITORING REPORT IN PATIENT MARS: Not Applicable Prescriptions: QUEtiapine [SEROquel] 50 mg PO DAILY #30 tab Referrals: Christofer Macdonald MD [Primary Care Provider] - Forms: ED Department Discharge Additional Instructions: Evaluation the emergency room today in regards to acute flareup of fibromyalgia syndrome with generalized pain syndrome that is interfering with her ability to sleep and eat. Associated abdominal pain for which no specific cause could be identified. It tests were negative for any H. pylori infection or organism that likes to cause ulcers. Lab work only confirmed low serum sodium level at 123. Again this is from drinking too much water and not enough juices and electrolytes. Need to take Gatorade/Powerade or juices much more than water per day to get her serum sodium back up. You're treated with 2 L of intravenous fluids to restore your sodium to about 130 normal his 140. He did with Dilaudid 1 mg 2 doses for pain relief and Ativan 2 mg to provide some degree of sedation and rest. I want you to try a trial of Seroquel medication to try and help you sleep better and relieve some of the generalized anxiety and pain. Suggest one half tablet at bedtime for the next 4 days and then a full tablet at bedtime until you follow-up with your personal physician to see if this is helping. I would like to give you give it a try for the next 3 weeks to see if you get any benefit from it. The dosage could be gradually increased after 2 weeks. Recently started on gabapentin as well and I agree with slowly increasing the dosage of this medication as well. - My Orders Last 24 Hours: My Active Orders 01/10/19 09:49 EKG Documentation Completion [RC] STAT - Assessment/Plan Last 24 Hours: My Active Orders 01/10/19 09:49 EKG Documentation Completion [RC] STAT
[2019-01-10] MEDS ORDERED: Hydrocortisone Sodium Succinate 100 MG/2 ML SDV IVPUSH ONE (09:58)
[2019-01-10] MEDS ORDERED: Sodium Chloride 0.9% 1,000 ML IV SCH (12:00)
== END 2019-01-10 15:26 | disposition home or self-care (01) ==
LOC: JD.ED 08:44
DX: M79.7 Fibromyalgia (principal); G89.29 Other chronic pain; G47.20 Circadian rhythm sleep disorder, unspecified type; I10 Essential (primary) hypertension; Z88.8 Allergy status to other drugs, medicaments and biological substances; Z88.5 Allergy status to narcotic agent; Z88.2 Allergy status to sulfonamides; Z79.899 Other long term (current) drug therapy
CPT/HCPCS: 36415; 80053; 81003; 83690; 83735; 83930; 85007; 85027; 86140; 86677; 93005; 96361; 96374; 96375; 96376; 99284; A9270; J1170; J1720; J2060; J2765; J7040; J7042; 93010

== ENCOUNTER 2019-02-01 09:07 | Emergency (ER) | payer MEDICARE, OTHER ==
[2019-02-01 09:31] VITALS: BP 164/89
[2019-02-01] MEDS ORDERED: HYDROmorphone 1 MG/ML Syringe IVPUSH ONE ×2 (09:54→11:26)
--- NOTE | 2019-02-01 09:58 | EDM.PDOC ---
ED HPI GENERAL MEDICAL PROBLEM - General Chief Complaint: Abdominal Pain Stated Complaint: SEVERE PAIN ALL OVER BODY Time Seen by Provider: 02/01/19 09:25 Source of Information: Reports: Patient, Family (), Old Records, RN Notes Reviewed History Limitations: Reports: No Limitations - History of Present Illness INITIAL COMMENTS - FREE TEXT/NARRATIVE: Medical records indicate that the patient has a history of fibromyalgia and chronic pain all over his body. He has attended this ED on numerous occasions requesting pain relief, despite being prescribed a 100 g fentanyl (Duragesic) patch every 48 hours (not every 72 hours), tramadol 50 mg every 6 hours as needed for breakthrough pain, Valium 5 mg every 8 hours, and gabapentin, all prescribed by his PCP. He was previously in pain management, but the pain market manager apparently left the area. He is not under the care of a Psychiatrist. The patient now returns to the ED, stating that he has had a burning pain extending from his rectum to his midabdomen for the past 10 days. He was seen by Varsha Tolbert in the clinic this past 01/28/2019. He is not sure what was diagnosed, but he was prescribed nystatin cream that he has been applying to his anus, that he states is not working to relieve the pain. He is also complaining of right shoulder pain for the past month. He has been going to physical therapy for it for the past 3 weeks, but he states that the pain has been worse for the past week. He believes that his shoulder is either broken or dislocated, although there has been no trauma or injury. He states that he has been unable to sleep or eat. He also reports that his usual fibromyalgia pain has been worse for the past couple of weeks. The patient's PCP is Dr. Macdonald. The patient last saw Dr. Macdonald about 3-4 weeks ago. He has an appointment to see him again on 02/23/2019. The patient's Colorectal Surgeon is Dr. Joe Quinones. Rectal Pain Score (Numeric/FACES): 10 - Related Data Allergies Allergy/AdvReac Type Severity Reaction Status Date / Time amitriptyline Allergy Other Verified 02/01/19 09:31 amlodipine besylate Allergy Anaphylactic Verified 02/01/19 09:31 [From Norvasc] Shock mirtazapine [From Remeron] Allergy Anxiety Verified 02/01/19 09:31 propoxyphene napsylate Allergy Rash Verified 02/01/19 09:31 [From Darvocet-N 100] sulfamethoxazole Allergy Other Verified 02/01/19 09:31 [From Bactrim] trimethoprim [From Bactrim] Allergy Other Verified 02/01/19 09:31 acetaminophen [From Percocet] AdvReac Hallucinati Verified 02/01/19 09:31 ons cephalexin [Cephalexin] AdvReac Vomiting Verified 02/01/19 09:31 morphine AdvReac Nausea Verified 02/01/19 09:31 oxycodone [From Percocet] AdvReac Hallucinati Verified 02/01/19 09:31 ons Home Meds: Home Meds Allopurinol [Zyloprim] 150 mg PO BID 02/04/14 [History] Famotidine [Pepcid] 20 mg PO BID PRN 02/04/14 [History] Omeprazole [Prilosec] 20 mg PO BID 02/04/14 [History] Potassium Chloride [Klor-Con 10] 20 meq PO DAILY 02/04/14 [History] Rosuvastatin [Crestor] 20 mg PO DAILY 02/04/14 [History] diazePAM [Valium] 5 mg PO Q8H 02/04/14 [History] Calcium Carbonate [Tums] 2,000 mg PO DAILY 02/20/14 [History] Cholecalciferol (Vitamin D3) [Vitamin D3] 4,000 unit PO DAILY 09/01/14 [History] Acetaminophen [Tylenol] 500 mg PO Q4H PRN 03/14/16 [History] Aspirin [Halfprin] 81 mg PO DAILY 03/14/16 [History] Hydrocortisone [Cortef] 5 mg PO PCDINNER 03/14/16 [History] Simethicone 125 mg PO BID 03/14/16 [History] B1/B2/Niacin/B12/Protease [B-Complex with B-12 Tablet] 1 each PO DAILY 03/28/16 [History] fentaNYL [Duragesic] 100 mcg TD Q48H 03/28/16 [History] traMADol [Ultram] 50 mg PO Q6H PRN 03/28/16 [History] Ferrous Sulfate 325 mg PO DAILY 09/10/16 [History] Butalbital/Aspirin/Caffeine [Fiorinal 50-325-40 MG] 1 tab PO Q6H PRN 08/26/17 [ History] Lactobacillus Acidophilus [Acidophilus] 1 each PO DAILY 08/26/17 [History] Docusate Sodium [Colace] 200 mg PO BID 05/07/18 [History] Hydrocortisone [Cortef] 10 mg PO DAILY 05/07/18 [History] Na Phos,M-B/Na Phos,DI-B [Fleet Enema] 1 dose RECTAL ASDIRECTED PRN 05/13/18 [ History] Losartan [Cozaar] 50 mg PO DAILY 06/24/18 [History] Polyethylene Glycol 3350 [Miralax] 17 gram PO BID 08/22/18 [History] PARoxetine [Paxil] 20 mg PO DAILY 09/16/18 [History] QUEtiapine [SEROquel] 50 mg PO DAILY #30 tab 01/10/19 [Rx] Pregabalin [Lyrica] 150 mg PO TID 02/01/19 [History] Past Medical History HEENT History: Reports: Hard of Hearing, Impaired Vision Other HEENT History: wears glasses, dentures Cardiovascular History: Reports: Arrhythmia (sick sinus syndrome), High Cholesterol, Hypertension Genitourinary History: Reports: Retention, Urinary Musculoskeletal History: Reports: Back Pain, Chronic (2 spinal stenosis), Osteoarthritis Neurological History: Reports: Headaches, Chronic, Neuropathy, Peripheral Psychiatric History: Reports: Anxiety, Depression, Other (See Below) ( Fibromyalgia) Endocrine/Metabolic History: Reports: Other (See Below) (Secondary adrenal insufficiency) Hematologic History: Reports: Anemia, Iron Deficiency - Past Surgical History HEENT Surgical History: Reports: Naso-Sinus Surgery, Tonsillectomy Cardiovascular Surgical History: Reports: Pacer GI Surgical History: Reports: Colon (hemicolectomy), Colonoscopy, Colostomy ( subsequently reversed), EGD Neurological Surgical History: Reports: Lumbar Spine (x 14), Vertebroplasty ( lumbar), Other (See Below) (Lumbar nerve blocks) Musculoskeletal Surgical History: Reports: Carpal Tunnel (bilateral), Hip Replacement (right), Knee Replacement (right), Other (See Below) (Trigger finger release) Dermatological Surgical History: Reports: Skin Graft Social & Family History - Family History Family Medical History: Noncontributory Other HEENT Family History: Pt states daughter is blind in one eye. Cardiac: Reports: CAD, MA Other Cardiac Family History: Pt states Father @ 53y/o. Oncologic: Reports: Bladder Other Oncologic Family History: Pt states daughter has rare bladder CA and also lost her site in one eye from it. - Tobacco Use Smoking Status *Q: Never Smoker Second Hand Smoke Exposure: No - Caffeine Use Caffeine Use: Reports: Soda Other Caffeine Use: occasional - Recreational Drug Use Recreational Drug Use: No - Living Situation & Occupation Living situation: Reports: , with Spouse Occupation: Retired ED ROS GENERAL - Review of Systems Review Of Systems: ROS reveals no pertinent complaints other than HPI. ED EXAM, GENERAL - Physical Exam Exam: See Below Exam Limited By: No Limitations General Appearance: Alert, Anxious Eye Exam: Bilateral Eye: EOMI, Normal Inspection Ears: Normal External Exam, Hearing Grossly Normal Nose: Normal Inspection Throat/Mouth: Normal Inspection, Normal Lips, Normal Voice, No Airway Compromise Head: Atraumatic, Normocephalic Neck: Normal Inspection, Full Range of Motion Respiratory/Chest: No Respiratory Distress, Lungs Clear, Normal Breath Sounds, No Accessory Muscle Use Cardiovascular: Normal Peripheral Pulses, Regular Rate, Rhythm, No Edema, No Gallop, No JVD, No Murmur, No Rub Peripheral Pulses: 4+: Radial (L), Radial (R) GI/Abdominal: Normal Bowel Sounds, Soft, No Organomegaly, No Distention, No Abnormal Bruit, No Mass, Tender (Generalized, non-focal) (Male) Exam: Deferred Rectal (Males) Exam: Normal Exam, Other (No visible abnormalities, such as erythema, rash, or external hemorrhoids) Back Exam: Normal Inspection, Full Range of Motion, NT Extremities: Normal Inspection, Normal Range of Motion, No Pedal Edema, Normal Capillary Refill Neurological: Alert, Oriented, Normal Cognition, No Motor/Sensory Deficits Psychiatric: Anxious Skin Exam: Warm, Dry, Intact, Normal Color, No Rash Course - Vital Signs Last Recorded V/S: Last Vital Signs Temp 36.4 C 02/01/19 09:28 Pulse 76 02/01/19 09:28 Resp 19 02/01/19 09:28 BP 164/89 H 02/01/19 09:28 Pulse Ox 96 02/01/19 09:28 - Orders/Labs/Meds Labs: Laboratory Tests 04/02/01/19 02/01/19 Range/Units 10:09 10:09 10:26 WBC 4.36 (4.23-9.07) K/mm3 RBC 4.77 (4.63-6.08) M/mm3 Hgb 14.6 (13.7-17.5) gm/L Hct 41.6 (40.1-51.0) % MCV 87.2 (79.0-92.2) fl MCH 30.6 (25.7-32.2) pg MCHC 35.1 (32.2-35.5) g/dl RDW Std Deviation 44.0 H (35.1-43.9) fL Plt Count 161 L (163-337) K/mm3 MPV 8.9 L (9.4-12.3) fl Neutrophils % (Manual) 58 (40-60) % Band Neutrophils % 0 (0-10) % Lymphocytes % (Manual) 29 (20-40) % Atypical Lymphs % 0 % Monocytes % (Manual) 9 (2-10) % Eosinophils % (Manual) 2 (0.8-7.0) % Basophils % (Manual) 2 H (0.2-1.2) Platelet Estimate Adequate RBC Morph Comment Normal Sodium 125 L (136-145) mEq/L Potassium 3.8 (3.5-5.1) mEq/L Chloride 89 L (98-107) mEq/L Carbon Dioxide 31 (21-32) mEq/L Anion Gap 8.8 (5-15) BUN 6 L (7-18) mg/dL Creatinine 0.8 (0.7-1.3) mg/dL Est Cr Clr Drug Dosing 85.44 mL/min Estimated GFR (MDRD) > 60 (>60) mL/min BUN/Creatinine Ratio 7.5 L (14-18) Glucose 101 (80-115) mg/dL Serum Osmolality 264 L (280-300) mosm/kg Calcium 8.6 (8.5-10.1) mg/dL Magnesium 1.8 (1.8-2.4) mg/dl Total Bilirubin 0.3 (0.2-1.0) mg/dL AST 16 (15-37) U/L ALT 18 (16-63) U/L Alkaline Phosphatase 81 (46-116) U/L Total Protein 6.8 (6.4-8.2) g/dl Albumin 3.9 (3.4-5.0) g/dl Globulin 2.9 gm/dL Albumin/Globulin Ratio 1.3 (1-2) Urine Color Yellow (Yellow) Urine Appearance Clear (Clear) Urine pH 7.0 (5.0-8.0) Ur Specific [place] 1.010 (1.005-1.030) Urine Protein Negative (Negative) Urine Glucose (UA) Negative (Negative) Urine Ketones Negative (Negative) Urine Occult Blood Negative (Negative) Urine Nitrite Negative (Negative) Urine Bilirubin Negative (Negative) Urine Urobilinogen 0.2 (0.2-1.0) Ur Leukocyte Esterase Negative (Negative) Urine RBC Not seen (0-5) /hpf Urine WBC Not seen (0-5) /hpf Ur Epithelial Cells Not seen (0-5) /hpf Urine Bacteria Not seen (FEW) /hpf Urine Mucus Not seen (FEW) /hpf Meds: Medications Discontinued Medications Generic Name Dose Route Start Last Admin Trade Name Freq PRN Reason Stop Dose Admin Hydromorphone HCl 1 mg 02/01/19 09:54 02/01/19 10:19 Dilaudid IVPUSH 02/01/19 09:55 1 mg ONETIME ONE Administration Hydromorphone HCl 1 mg 02/01/19 11:26 02/01/19 11:30 Dilaudid IVPUSH 02/01/19 11:27 1 mg ONETIME ONE Administration Sodium Chloride 1,000 mls @ 999 mls/hr 02/01/19 11:01 02/01/19 11:11 Normal Saline IV 02/01/19 12:01 999 mls/hr ONETIME ONE Administration - Re-Assessments/Exams Free Text/Narrative Re-Assessment/Exam: 02/01/19 09:55 The patient believes that his right shoulder is broken. I don't, but I have ordered an x-ray to satisfy the patient. The remainder of the patient's symptoms are all likely related to his chronic pain, due to his depression and fibromyalgia. Given his history of secondary adrenal insufficiency, I have ordered some blood work, and because of his lower abdominal tenderness, I have ordered a urinalysis. In the meantime, the patient will receive some IV Dilaudid. 02/01/19 11:00 3-view radiographs of the right shoulder appear to be grossly unremarkable. No fracture or dislocation identified. Formal read per the Radiologist pending. 02/01/19 11:02 The patient's sodium has returned depressed at 125. I have ordered 1 L NS. The patient's serum osmolality is still pending. The patient's CBC, CMP, and magnesium are grossly unremarkable, and his urinalysis is normal. 02/01/19 12:24 Test results discussed with the patient and his . The patient received 2 mg of IV Dilaudid, which did not really help his pain, however, I am reluctant to give him more, given that all of his pain is chronic in nature. I suspect that the majority of the patient's pain is related to his fibromyalgia , due to refractory depression. The patient is on Paxil and Seroquel, but he continues due to have a high degree of anxiety and depression. I wonder if the patient might be a good candidate for treatment with ketamine. I'm also concerned about the patient's relatively high tolerance to opioids, and increasing dependence on diazepam. I think the patient would benefit by being under the care of a pain market manager. Ideally, the patient would receive coordinated care with a pain market manager and a Psychiatrist comfortable with ketamine administration. I am recommending that the patient follow up with his PCP, Dr. Macdonald, to look into that option. With respect to the patient's rectal pain, it may be related to the relatively high pH of fluid from the terminal ileum, since the patient underwent a hemicolectomy. I'm recommending that the patient follow-up with his Colorectal Surgeon, Dr. Quinones, in this regard. Departure - Departure Time of Disposition: 12:31 Disposition: Home, Self-Care 01 Condition: Fair Clinical Impression: Fibromyalgia, Depression, Anxiety, Rectal pain, Hyponatremia, Secondary adrenal insufficiency Chronic pain Qualifiers: Chronic pain type: chronic pain syndrome Qualified Code(s): G89.4 - Chronic pain syndrome - Discharge Information *PRESCRIPTION DRUG MONITORING PROGRAM REVIEWED*: Not Applicable *COPY OF PRESCRIPTION DRUG MONITORING REPORT IN PATIENT MARS: Not Applicable Instructions: Myofascial Pain Syndrome and Fibromyalgia, Major Depressive Disorder, Adult Referrals: Christofer Macdonald MD [Primary Care Provider] - Joe Quinones MD [Ordering Only Provider] - Forms: ED Department Discharge Additional Instructions: You were seen in the emergency room for burning rectal pain, generalized body aches, right shoulder pain, difficulty sleeping, and poor appetite. Workup in the ER included blood work, a urinalysis, and x-rays of your right shoulder. Your bloodwork found your sodium to be low at 125, with a serum osmolality low at 264. The remainder of your workup including the x-rays of your shoulder, was unremarkable. You are not anemic. You do not have an infection. You do not have a broken or dislocated shoulder. He was treated in the ER with 1 L of IV fluid and 2 mg of IV Dilaudid. As discussed, your generalized body aches are likely related to fibromyalgia due to inadequately treated depression. We recommend that you talk to your PCP, Dr. Macdonald, about being referred to a set painter, as well as a Psychiatrist who can discuss the option of treatment with ketamine. Your rectal pain is likely related to high pH of your intestinal fluid, due to the absence of your colon. Please follow-up with your Colorectal Surgeon, Dr. Joe Quinones, for further evaluation. If any other problems, please do not hesitate to return to the ER.
[2019-02-01] MEDS ORDERED: Sodium Chloride 0.9% 1,000 ML IV ONE (11:01)
--- NOTE | 2019-02-01 13:56 | CR ---
Right shoulder: Three views of the right shoulder were obtained. Comparison: Prior right shoulder study of 01/04/19. Mild joint space narrowing is again seen within the acromioclavicular joint. No abnormal inferior spurring is seen within the acromioclavicular joint. There is very minimal inferior hooking off the acromion process being seen. Glenohumeral joint appears within normal limits. No discrete fracture or dislocation is seen. No abnormal soft tissue calcifications are seen. Impression: 1. Slight degenerative change within the acromioclavicular joint with minimal inferior hooking off the acromion process. These findings are stable from previous exam. 2. Right shoulder study is otherwise unremarkable. Diagnostic code #2
== END 2019-02-01 13:08 | disposition home or self-care (01) ==
LOC: JD.ED 09:07
DX: M79.7 Fibromyalgia (principal); G89.4 Chronic pain syndrome; F32.9 Major depressive disorder, single episode, unspecified; F41.9 Anxiety disorder, unspecified; K62.89 Other specified diseases of anus and rectum; E87.1 Hypo-osmolality and hyponatremia; E27.40 Unspecified adrenocortical insufficiency
CPT/HCPCS: 36415; 73030; 80053; 81001; 83735; 83930; 85007; 85027; 96361; 96374; 96376; 99283; J1170; J7040; 99285

== ENCOUNTER 2019-03-07 11:46 | Emergency (ER) | payer MEDICARE, OTHER ==
[2019-03-07] MEDS: HYDROmorphone 1 MG/ML Syringe IM ONE (12:27)
--- NOTE | 2019-03-07 12:29 | EDM.PDOC ---
ED HPI GENERAL MEDICAL PROBLEM - General Chief Complaint: General Stated Complaint: PAIN Time Seen by Provider: 03/07/19 12:03 Source of Information: Reports: Patient History Limitations: Reports: No Limitations - History of Present Illness INITIAL COMMENTS - FREE TEXT/NARRATIVE: 68-year-old male with history of fibromyalgia presents to the ED complaining of worsening pain. He is on fentanyl patch, Fioricet, tramadol, Tylenol, and high-dose Lyrica. Pain pattern is similar to his previous episodes of fibromyalgia flareup. Burning sensation to his body with sharp pain on intermittent basis. States over the past 2 days symptoms have worsened. He has not been sleeping well. Oral intake of food has been poor. He has been drinking plenty of water up to 8x16 ounces of bottle plus water via cup. He has a history of hyponatremia and required infusion of IV fluids as of recent. Patient 's fentanyl patche is to be changed today. He has taken Fioricet, tramadol, and Tylenol today with no relief. He denies any chest pain, shortness of breath, fever, stiff neck, headache, abdominal pain, nausea/vomiting, diarrhea, bloody stools, dark tarry stools, and/or any additional complaints. Generalized Pain Score (Numeric/FACES): 10 - Related Data Allergies Allergy/AdvReac Type Severity Reaction Status Date / Time amitriptyline Allergy Other Verified 02/01/19 09:31 amlodipine besylate Allergy Anaphylactic Verified 02/01/19 09:31 [From Norvasc] Shock mirtazapine [From Remeron] Allergy Anxiety Verified 02/01/19 09:31 propoxyphene napsylate Allergy Rash Verified 02/01/19 09:31 [From Darvocet-N 100] sulfamethoxazole Allergy Other Verified 02/01/19 09:31 [From Bactrim] trimethoprim [From Bactrim] Allergy Other Verified 02/01/19 09:31 acetaminophen [From Percocet] AdvReac Hallucinati Verified 02/01/19 09:31 ons cephalexin [Cephalexin] AdvReac Vomiting Verified 02/01/19 09:31 morphine AdvReac Nausea Verified 02/01/19 09:31 oxycodone [From Percocet] AdvReac Hallucinati Verified 02/01/19 09:31 ons Home Meds: Home Meds Allopurinol [Zyloprim] 150 mg PO BID 02/04/14 [History] Famotidine [Pepcid] 20 mg PO BID PRN 02/04/14 [History] Omeprazole [Prilosec] 20 mg PO BID 02/04/14 [History] Potassium Chloride [Klor-Con 10] 20 meq PO DAILY 02/04/14 [History] Rosuvastatin [Crestor] 20 mg PO DAILY 02/04/14 [History] diazePAM [Valium] 5 mg PO Q8H 02/04/14 [History] Calcium Carbonate [Tums] 2,000 mg PO DAILY 02/20/14 [History] Cholecalciferol (Vitamin D3) [Vitamin D3] 4,000 unit PO DAILY 09/01/14 [History] Acetaminophen [Tylenol] 500 mg PO Q4H PRN 03/14/16 [History] Aspirin [Halfprin] 81 mg PO DAILY 03/14/16 [History] Hydrocortisone [Cortef] 5 mg PO PCDINNER 03/14/16 [History] Simethicone 125 mg PO BID 03/14/16 [History] B1/B2/Niacin/B12/Protease [B-Complex with B-12 Tablet] 1 each PO DAILY 03/28/16 [History] fentaNYL [Duragesic] 100 mcg TD Q48H 03/28/16 [History] traMADol [Ultram] 50 mg PO Q6H PRN 03/28/16 [History] Ferrous Sulfate 325 mg PO DAILY 09/10/16 [History] Butalbital/Aspirin/Caffeine [Fiorinal 50-325-40 MG] 1 tab PO Q6H PRN 08/26/17 [ History] Lactobacillus Acidophilus [Acidophilus] 1 each PO DAILY 08/26/17 [History] Docusate Sodium [Colace] 200 mg PO BID 05/07/18 [History] Hydrocortisone [Cortef] 15 mg PO DAILY 05/07/18 [History] Losartan [Cozaar] 50 mg PO DAILY 06/24/18 [History] Polyethylene Glycol 3350 [Miralax] 17 gram PO BID 08/22/18 [History] PARoxetine [Paxil] 20 mg PO DAILY 09/16/18 [History] Pregabalin [Lyrica] 150 mg PO QID 02/01/19 [History] Past Medical History HEENT History: Reports: Hard of Hearing, Impaired Vision Other HEENT History: wears glasses, dentures Cardiovascular History: Reports: Arrhythmia, High Cholesterol, Hypertension Other Cardiovascular History: sick sinus syndrome Respiratory History: Reports: SOB Gastrointestinal History: Reports: Bowel Obstruction, Other (See Below) Other Gastrointestinal History: chronic abd pain Genitourinary History: Reports: Retention, Urinary Other Genitourinary History: Urinary frequency, prostatitis [employer] History: Reports: None Musculoskeletal History: Reports: Back Pain, Chronic, Osteoarthritis Other Musculoskeletal History: carpal tunnel syndrome bilaterally Neurological History: Reports: Headaches, Chronic, Neuropathy, Peripheral Other Neuro History: dura-fluid leak with patch Psychiatric History: Reports: Anxiety, Depression, Other (See Below) Other Psychiatric History: chronic pain syndrome, chronic fatigue Endocrine/Metabolic History: Reports: Other (See Below) Other Endocrine/Metabolic History: adrenal insufficiancy Hematologic History: Reports: Anemia, Iron Deficiency Other Hematologic History: hypokalemia Immunologic History: Reports: None Oncologic (Cancer) History: Reports: None - Past Surgical History HEENT Surgical History: Reports: Naso-Sinus Surgery, Tonsillectomy Cardiovascular Surgical History: Reports: Pacer GI Surgical History: Reports: Colon, Colonoscopy, Colostomy, EGD Neurological Surgical History: Reports: Lumbar Spine, Vertebroplasty, Other ( See Below) Musculoskeletal Surgical History: Reports: Carpal Tunnel, Hip Replacement, Knee Replacement, Other (See Below) Dermatological Surgical History: Reports: Skin Graft Social & Family History - Family History Family Medical History: Noncontributory Other HEENT Family History: Pt states daughter is blind in one eye. Cardiac: Reports: CAD, [place] Other Cardiac Family History: Pt states Father @ 53y/o. Oncologic: Reports: Bladder Other Oncologic Family History: Pt states daughter has rare bladder CA and also lost her site in one eye from it. - Tobacco Use Smoking Status *Q: Never Smoker - Caffeine Use Caffeine Use: Reports: None Other Caffeine Use: occasional - Recreational Drug Use Recreational Drug Use: No - Living Situation & Occupation Living situation: Reports: , with Spouse Occupation: Retired ED ROS GENERAL - Review of Systems Review Of Systems: ROS reveals no pertinent complaints other than HPI. ED EXAM, GENERAL - Physical Exam Exam: See Below Exam Limited By: No Limitations General Appearance: Alert, WD/WN, No Apparent Distress Eye Exam: Bilateral Eye: Normal Inspection, PERRL Ears: Hearing Grossly Normal Nose: Normal Inspection Throat/Mouth: Normal Inspection, Normal Oropharynx, Normal Voice, No Airway Compromise Head: Atraumatic, Normocephalic Neck: Normal Inspection, Supple, Non-Tender, Full Range of Motion. No: Lymphadenopathy (L), Lymphadenopathy (R) Respiratory/Chest: No Respiratory Distress, Lungs Clear, Normal Breath Sounds, No Accessory Muscle Use, Chest Non-Tender, Other (Pacemaker in place) Cardiovascular: Normal Peripheral Pulses, Regular Rate, Rhythm, No Murmur ( Obvious) Peripheral Pulses: 2+: Radial (L), Radial (R) GI/Abdominal: Normal Bowel Sounds, Soft, Non-Tender, No Organomegaly, No Distention Back Exam: Normal Inspection. No: CVA Tenderness (L), CVA Tenderness (R) Extremities: Normal Inspection, Non-Tender, No Pedal Edema Neurological: Alert, Oriented, CN II-XII Intact, Normal Cognition, No Motor/ Sensory Deficits Psychiatric: Normal Affect, Normal Mood Skin Exam: Warm, Dry, Intact, Normal Color, No Rash Course - Vital Signs Last Recorded V/S: Last Vital Signs Temp 97.6 F 03/07/19 15:00 Pulse 64 03/07/19 15:00 Resp 18 03/07/19 15:00 BP 168/82 H 03/07/19 15:00 Pulse Ox 93 L 03/07/19 15:00 - Orders/Labs/Meds Labs: Laboratory Tests 03/07/19 03/07/19 03/07/19 Range/Units 12:15 12:15 12:15 WBC 5.41 (4.23-9.07) K/mm3 RBC 4.63 (4.63-6.08) M/mm3 Hgb 14.2 (13.7-17.5) gm/L Hct 41.0 (40.1-51.0) % MCV 88.6 (79.0-92.2) fl MCH 30.7 (25.7-32.2) pg MCHC 34.6 (32.2-35.5) g/dl RDW Std Deviation 44.1 H (35.1-43.9) fL Plt Count 173 (163-337) K/mm3 MPV 9.0 L (9.4-12.3) fl Neutrophils % (Manual) 67 H (40-60) % Band Neutrophils % 0 (0-10) % Lymphocytes % (Manual) 27 (20-40) % Atypical Lymphs % 0 % Monocytes % (Manual) 5 (2-10) % Eosinophils % (Manual) 1 (0.8-7.0) % Basophils % (Manual) 0 L (0.2-1.2) Platelet Estimate Adequate RBC Morph Comment Normal ESR 6 (0-15) mm/hr Sodium 133 L (136-145) mEq/L Potassium 4.2 (3.5-5.1) mEq/L Chloride 96 L (98-107) mEq/L Carbon Dioxide 30 (21-32) mEq/L Anion Gap 11.2 (5-15) BUN 7 (7-18) mg/dL Creatinine 0.8 (0.7-1.3) mg/dL Est Cr Clr Drug Dosing 84.89 mL/min Estimated GFR (MDRD) > 60 (>60) mL/min BUN/Creatinine Ratio 8.8 L (14-18) Glucose 101 (80-115) mg/dL Serum Osmolality 280 (280-300) mosm/kg Calcium 9.3 (8.5-10.1) mg/dL Magnesium 2.0 (1.8-2.4) mg/dl Total Bilirubin 0.2 (0.2-1.0) mg/dL AST 17 (15-37) U/L ALT 20 (16-63) U/L Alkaline Phosphatase 89 (46-116) U/L C-Reactive Protein 0.4 (<1.0) mg/dL Total Protein 6.6 (6.4-8.2) g/dl Albumin 3.9 (3.4-5.0) g/dl Globulin 2.7 gm/dL Albumin/Globulin Ratio 1.4 (1-2) Urine Color (Yellow) Urine Appearance (Clear) Urine pH (5.0-8.0) Ur Specific [place] (1.005-1.030) Urine Protein (Negative) Urine Glucose (UA) (Negative) Urine Ketones (Negative) Urine Occult Blood (Negative) Urine Nitrite (Negative) Urine Bilirubin (Negative) Urine Urobilinogen (0.2-1.0) Ur Leukocyte Esterase (Negative) Urine RBC (0-5) /hpf Urine WBC (0-5) /hpf Ur Squamous Epith Cells (0-5) /hpf Urine Bacteria (FEW) /hpf Urine Mucus (FEW) /hpf Urine Opiates Screen (JRXKDK=419) Ur Buprenorphine Scrn (CUTOFF=10) Ur Oxycodone Screen (AFI7JW=975) Urine Methadone Screen (PSX9ZY=913) Ur Propoxyphene Screen (JZINDT=501) Ur Barbiturates Screen (CMNRXL=397) Ur Tricyclics Screen (MBOFJK=945) Ur Phencyclidine Scrn (CUTOFF=25) Ur Amphetamine Screen (QTGQKA=253) U Methamphetamines Scrn (RTTKFU=895) U Benzodiazepines Scrn (IJUNRS=194) U Cocaine Metab Screen (JPXCIY=088) U Marijuana (THC) Screen (CUTOFF=50) 03/07/19 03/07/19 Range/Units 12:35 12:35 WBC (4.23-9.07) K/mm3 RBC (4.63-6.08) M/mm3 Hgb (13.7-17.5) gm/L Hct (40.1-51.0) % MCV (79.0-92.2) fl MCH (25.7-32.2) pg MCHC (32.2-35.5) g/dl RDW Std Deviation (35.1-43.9) fL Plt Count (163-337) K/mm3 MPV (9.4-12.3) fl Neutrophils % (Manual) (40-60) % Band Neutrophils % (0-10) % Lymphocytes % (Manual) (20-40) % Atypical Lymphs % % Monocytes % (Manual) (2-10) % Eosinophils % (Manual) (0.8-7.0) % Basophils % (Manual) (0.2-1.2) Platelet Estimate RBC Morph Comment ESR (0-15) mm/hr Sodium (136-145) mEq/L Potassium (3.5-5.1) mEq/L Chloride (98-107) mEq/L Carbon Dioxide (21-32) mEq/L Anion Gap (5-15) BUN (7-18) mg/dL Creatinine (0.7-1.3) mg/dL Est Cr Clr Drug Dosing mL/min Estimated GFR (MDRD) (>60) mL/min BUN/Creatinine Ratio (14-18) Glucose (80-115) mg/dL Serum Osmolality (280-300) mosm/kg Calcium (8.5-10.1) mg/dL Magnesium (1.8-2.4) mg/dl Total Bilirubin (0.2-1.0) mg/dL AST (15-37) U/L ALT (16-63) U/L Alkaline Phosphatase (46-116) U/L C-Reactive Protein (<1.0) mg/dL Total Protein (6.4-8.2) g/dl Albumin (3.4-5.0) g/dl Globulin gm/dL Albumin/Globulin Ratio (1-2) Urine Color Light yellow (Yellow) Urine Appearance Clear (Clear) Urine pH 7.0 (5.0-8.0) Ur Specific [place] 1.010 (1.005-1.030) Urine Protein Negative (Negative) Urine Glucose (UA) Negative (Negative) Urine Ketones Negative (Negative) Urine Occult Blood Negative (Negative) Urine Nitrite Negative (Negative) Urine Bilirubin Negative (Negative) Urine Urobilinogen 0.2 (0.2-1.0) Ur Leukocyte Esterase Negative (Negative) Urine RBC 0-5 (0-5) /hpf Urine WBC 0-5 (0-5) /hpf Ur Squamous Epith Cells Not seen (0-5) /hpf Urine Bacteria Not seen (FEW) /hpf Urine Mucus Not seen (FEW) /hpf Urine Opiates Screen Negative (CRZVWO=140) Ur Buprenorphine Scrn Negative (CUTOFF=10) Ur Oxycodone Screen Negative (PJX8YP=218) Urine Methadone Screen Negative (NEZ8QA=658) Ur Propoxyphene Screen Negative (AAHXQO=245) Ur Barbiturates Screen Presumptive positive H (YPBTRA=825) Ur Tricyclics Screen Negative (HZBOFB=328) Ur Phencyclidine Scrn Negative (CUTOFF=25) Ur Amphetamine Screen Negative (UWTPSL=195) U Methamphetamines Scrn Negative (UAWSQE=702) U Benzodiazepines Scrn Presumptive positive H (NXNEGX=382) U Cocaine Metab Screen Negative (BRHZAU=153) U Marijuana (THC) Screen Negative (CUTOFF=50) Meds: Medications Discontinued Medications Generic Name Dose Route Start Last Admin Trade Name Freq PRN Reason Stop Dose Admin Famotidine 40 mg 03/07/19 13:45 03/07/19 14:07 Pepcid PO 03/07/19 13:46 40 mg ONETIME ONE Administration Hydromorphone HCl 1 mg 03/07/19 12:22 03/07/19 12:27 Dilaudid IM 03/07/19 12:23 1 mg ONETIME ONE Administration Ketorolac Tromethamine 30 mg 03/07/19 13:45 03/07/19 14:08 Toradol IM 03/07/19 13:46 30 mg ONETIME ONE Administration Ondansetron HCl 4 mg 03/07/19 13:45 03/07/19 14:08 Zofran Odt PO 03/07/19 13:46 4 mg ONETIME ONE Administration - Re-Assessments/Exams Free Text/Narrative Re-Assessment/Exam: I've elected to not start a IV. I will wait for labs to come back before doing so. I have set expectations with the patient that most likely will not get his pain under control. I did review previous ED visit that took place February [id number] to which the patient received 2 mg of Dilaudid IV with no significant relief. There was fear with repeated doses of narcotics that he would have a adverse reaction thus I will follow suit. Initial labs and studies will include: CBC, chem 14, ESR, CRP, urine drug screen , magnesium, and UA. Dilaudid 1mg IM. Labs reviewed: CBC essentially normal. Sodium 133. Potassium 4.2. Creatinine normal. UA was negative. Urine drug screen positive for barbiturates and and also benzodiazepines. CRP and ESR WNL. 1349 Reassessment, discussed lab results with the patient. Pain states pain has only minimally improved. Currently 8 out of 10. We discussed options for further pain management which will include Toradol versus another dose of Dilaudid. Again patient had minimal relief last ER visit with 2 mg of Dilaudid thus patient has opted to go with Toradol. Ordered Toradol 30 mg IM, Pepcid 40 mg by mouth, and Zofran 4 mg ODT. 03/07/19 14:46 reassessment, vital signs are stable. Patient resting comfortably in bed. Still complains of pain 8 out of 10 consistent with fibromyalgia. I do not have any other options for pain management. Both patient and have elected to go home. I have provided contact information for [facility] to discuss possible ketamine infusions. Return precautions were discussed with the patient and . They voiced their understanding. Discharge instructions as documented. Departure - Departure Time of Disposition: 14:18 Disposition: Home, Self-Care 01 Condition: Good Clinical Impression: Fibromyalgia, Fibromyalgia affecting multiple sites, Hyponatremia, Hyponatremia - Discharge Information Instructions: Hyponatremia, Myofascial Pain Syndrome and Fibromyalgia Referrals: Christofer Macdonald MD [Primary Care Provider] - Forms: ED Department Discharge Additional Instructions: No driving this evening since receiving a sedative medication while in the ED. Please follow up with PCP/pain specialist for further management of pain syndrome. Return back to the ED if you develop any new or worsening symptoms. No driving while on narcotics.
[2019-03-07] MEDS: Famotidine 20 MG Tab PO ONE (14:07)
[2019-03-07] MEDS: Ondansetron 4 MG Tab.DIS PO ONE (14:08)
[2019-03-07] MEDS: Ketorolac 30 MG/ML SDV IM ONE (14:08)
[2019-03-07 15:28] VITALS: BP 168/82
== END 2019-03-07 15:00 | disposition home or self-care (01) ==
LOC: JD.ED 11:46
DX: M79.7 Fibromyalgia (principal); E87.1 Hypo-osmolality and hyponatremia; I10 Essential (primary) hypertension; E78.00 Pure hypercholesterolemia, unspecified; F41.9 Anxiety disorder, unspecified; F32.9 Major depressive disorder, single episode, unspecified; Z79.899 Other long term (current) drug therapy; Z88.6 Allergy status to analgesic agent; Z88.5 Allergy status to narcotic agent; Z88.1 Allergy status to other antibiotic agents; Z88.2 Allergy status to sulfonamides; Z88.8 Allergy status to other drugs, medicaments and biological substances
CPT/HCPCS: 36415; 80053; 80306; 81001; 83735; 83930; 85007; 85027; 85652; 86140; 96372; 99283; A9270; J1170; J1885; 99284

== ENCOUNTER 2019-03-25 14:12 | Emergency (ER) | payer MEDICARE, OTHER ==
[2019-03-25 14:25] VITALS: BP 163/96
--- NOTE | 2019-03-25 14:28 | EDM.PDOC ---
ED HPI GENERAL MEDICAL PROBLEM - General Chief Complaint: General Stated Complaint: FLUID BUILD UP Time Seen by Provider: 03/25/19 14:22 Source of Information: Reports: Patient, Provider History Limitations: Reports: No Limitations - History of Present Illness INITIAL COMMENTS - FREE TEXT/NARRATIVE: 68-year-old male who suffers from chronic fibromyalgia syndrome or somatic depression presents to the ED after being identified to have a low serum sodium level of 124 at the clinic. He was complaining of some chest pain but labs and ECG were normal. She is seen quite often through the clinic and through the ED. I am very familiar with his case over a number of years. Patient often doesn't sleep becomes extremely anxious and has multiple somatic complaints. Currently having burning sensation to all of his body parts particularly his penis and lower abdomen and head. No recent changes to any of his medications. Patient is sent over to the ED primarily for improvement of his hyponatremia and control of his pain/anxiety. Onset: Other (Patient has chronic pain syndrome related to fibromyalgia pain syndrome and chronic somatic depression. History of chronic recurrent hyponatremia from drinking excessive amounts of water and causing direct delusional hyponatremia.) Duration: Chronic, Getting Worse Location: Reports: Generalized Quality: Reports: Ache, Burning (Burning in his skin all over his body.) Severity: Moderate Improves with: Reports: None Worsens with: Reports: None Context: Reports: Other (Lab work done at [facility] identified hyponatremia with a sodium of 124.). Denies: Activity, Exercise, Lifting, Sick Contact, Trauma Associated Symptoms: Reports: Chest Pain, Headaches, Loss of Appetite, Malaise, Nausea/Vomiting, Weakness (Nausea), Other. Denies: Cough, cough w sputum, Diaphoresis, Fever/Chills, Rash, Seizure, Shortness of Breath, Syncope Treatments ASH KIER BOILER: Reports: Other (see below) (Only his usual medications.) - Related Data Allergies Allergy/AdvReac Type Severity Reaction Status Date / Time amitriptyline Allergy Other Verified 02/01/19 09:31 amlodipine besylate Allergy Anaphylactic Verified 02/01/19 09:31 [From Norvasc] Shock mirtazapine [From Remeron] Allergy Anxiety Verified 02/01/19 09:31 propoxyphene napsylate Allergy Rash Verified 02/01/19 09:31 [From Darvocet-N 100] sulfamethoxazole Allergy Other Verified 02/01/19 09:31 [From Bactrim] trimethoprim [From Bactrim] Allergy Other Verified 02/01/19 09:31 acetaminophen [From Percocet] AdvReac Hallucinati Verified 02/01/19 09:31 ons cephalexin [Cephalexin] AdvReac Vomiting Verified 02/01/19 09:31 morphine AdvReac Nausea Verified 02/01/19 09:31 oxycodone [From Percocet] AdvReac Hallucinati Verified 02/01/19 09:31 ons Home Meds: Home Meds Allopurinol [Zyloprim] 150 mg PO BID 02/04/14 [History] Famotidine [Pepcid] 20 mg PO BID PRN 02/04/14 [History] Omeprazole [Prilosec] 20 mg PO BID 02/04/14 [History] Potassium Chloride [Klor-Con 10] 20 meq PO DAILY 02/04/14 [History] Rosuvastatin [Crestor] 20 mg PO DAILY 02/04/14 [History] diazePAM [Valium] 5 mg PO Q8H 02/04/14 [History] Calcium Carbonate [Tums] 2,000 mg PO DAILY 02/20/14 [History] Cholecalciferol (Vitamin D3) [Vitamin D3] 4,000 unit PO DAILY 09/01/14 [History] Acetaminophen [Tylenol] 500 mg PO Q4H PRN 03/14/16 [History] Aspirin [Halfprin] 81 mg PO DAILY 03/14/16 [History] Hydrocortisone [Cortef] 5 mg PO PCDINNER 03/14/16 [History] Simethicone 125 mg PO BID 03/14/16 [History] B1/B2/Niacin/B12/Protease [B-Complex with B-12 Tablet] 1 each PO DAILY 03/28/16 [History] fentaNYL [Duragesic] 100 mcg TD Q48H 03/28/16 [History] traMADol [Ultram] 50 mg PO Q6H PRN 03/28/16 [History] Ferrous Sulfate 325 mg PO DAILY 09/10/16 [History] Butalbital/Aspirin/Caffeine [Fiorinal 50-325-40 MG] 1 tab PO Q6H PRN 08/26/17 [ History] Lactobacillus Acidophilus [Acidophilus] 1 each PO DAILY 08/26/17 [History] Docusate Sodium [Colace] 200 mg PO BID 05/07/18 [History] Hydrocortisone [Cortef] 15 mg PO DAILY 05/07/18 [History] Losartan [Cozaar] 50 mg PO DAILY 06/24/18 [History] Polyethylene Glycol 3350 [Miralax] 17 gram PO BID 08/22/18 [History] PARoxetine [Paxil] 20 mg PO DAILY 09/16/18 [History] Pregabalin [Lyrica] 150 mg PO QID 02/01/19 [History] Past Medical History HEENT History: Reports: Hard of Hearing, Impaired Vision Other HEENT History: wears glasses, dentures Cardiovascular History: Reports: Arrhythmia, High Cholesterol, Hypertension Other Cardiovascular History: sick sinus syndrome Respiratory History: Reports: SOB Gastrointestinal History: Reports: Bowel Obstruction, Other (See Below) Other Gastrointestinal History: chronic abd pain Genitourinary History: Reports: Retention, Urinary Other Genitourinary History: Urinary frequency, prostatitis DERRICK OPERATOR History: Reports: None Musculoskeletal History: Reports: Back Pain, Chronic, Osteoarthritis Other Musculoskeletal History: carpal tunnel syndrome bilaterally Neurological History: Reports: Headaches, Chronic, Neuropathy, Peripheral Other Neuro History: dura-fluid leak with patch Psychiatric History: Reports: Anxiety, Depression, Other (See Below) Other Psychiatric History: chronic pain syndrome, chronic fatigue Endocrine/Metabolic History: Reports: Other (See Below) Other Endocrine/Metabolic History: adrenal insufficiancy Hematologic History: Reports: Anemia, Iron Deficiency Other Hematologic History: hypokalemia Immunologic History: Reports: None Oncologic (Cancer) History: Reports: None - Past Surgical History HEENT Surgical History: Reports: Naso-Sinus Surgery, Tonsillectomy Cardiovascular Surgical History: Reports: Pacer GI Surgical History: Reports: Colon, Colonoscopy, Colostomy, EGD Neurological Surgical History: Reports: Lumbar Spine, Vertebroplasty, Other ( See Below) Musculoskeletal Surgical History: Reports: Carpal Tunnel, Hip Replacement, Knee Replacement, Other (See Below) Dermatological Surgical History: Reports: Skin Graft Social & Family History - Family History Family Medical History: Noncontributory Other HEENT Family History: Pt states daughter is blind in one eye. Cardiac: Reports: CAD, [place] Other Cardiac Family History: Pt states Father @ 53y/o. Oncologic: Reports: Bladder Other Oncologic Family History: Pt states daughter has rare bladder CA and also lost her site in one eye from it. - Caffeine Use Caffeine Use: Reports: None Other Caffeine Use: occasional - Living Situation & Occupation Living situation: Reports: , with Spouse Occupation: Retired ED ROS GENERAL - Review of Systems Review Of Systems: See Below Constitutional: Reports: Malaise, Weakness, Fatigue, Decreased Appetite. Denies : Fever, Chills HEENT: Reports: Glasses Respiratory: Reports: Shortness of Breath. Denies: Wheezing, Pleuritic Chest Pain, Cough, Sputum Cardiovascular: Reports: Chest Pain, Blood Pressure Problem (Normal ECG at the clinic.), Lightheadedness. Denies: Claudication, Dyspnea on Exertion, Edema, Orthopnea ( Blood pressure is elevated a lot of times when he presents the ED is due to anxiety) Endocrine: Reports: Fatigue GI/Abdominal: Reports: Abdominal Pain, Constipation (Hurts all over mostly burning type pain. History of chronic constipation) : Reports: Frequency Musculoskeletal: Reports: Muscle Pain (Generalized muscle aches and pains compatible with fibromyalgia syndrome.) Skin: Reports: Other (States his skin feels like it's on fire.) Neurological: Reports: Weakness. Denies: Confusion, Dizziness, Headache, Numbness, Paresthesia, Syncope, Tingling, Tremors, Trouble Speaking, Difficulty Walking, Change in Speech, Gait Disturbance Psychiatric: Reports: No Symptoms Hematologic/Lymphatic: Reports: No Symptoms Immunologic: Reports: No Symptoms ED EXAM, GENERAL - Physical Exam Exam: See Below Exam Limited By: No Limitations General Appearance: Alert, Anxious (Extremely anxious and apprehensive.), Severe Distress Eye Exam: Bilateral Eye: Normal Inspection Throat/Mouth: Other Head: Atraumatic (Tongue is mildly dry.), Normocephalic Neck: Normal Inspection, Supple, Non-Tender, Full Range of Motion. No: Lymphadenopathy (L), Lymphadenopathy (R) Respiratory/Chest: No Respiratory Distress, Lungs Clear, Normal Breath Sounds, No Accessory Muscle Use, Chest Non-Tender Cardiovascular: Normal Peripheral Pulses, Regular Rate, Rhythm, No Edema, No Gallop, No Murmur, No Rub Peripheral Pulses: 2+: Posterior Tibial (L), Posterior Tibial (R), Dorsalis Pedis (L), Dorsalis Pedis (R) GI/Abdominal: Normal Bowel Sounds, Soft, Non-Tender, No Organomegaly, No Abnormal Bruit, No Mass, Pelvis Stable, Tender (Multiple surgical scars present. No suprapubic a. Questionable palpable: In this area.), Other (Has a fentanyl patch on his left upper quadrant of the abdomen with skin irritation from the glue.) (Male) Exam: No Hernia Back Exam: Normal Inspection, Full Range of Motion. No: CVA Tenderness (L), CVA Tenderness (R) Extremities: Normal Inspection, Normal Range of Motion, Non-Tender, No Pedal Edema, Normal Capillary Refill Neurological: Alert, Oriented, CN II-XII Intact, Normal Cognition, No Motor/ Sensory Deficits. No: Normal Gait Psychiatric: Anxious, Depressed Mood Skin Exam: Warm, Dry, Intact, Normal Color, No Rash Course - Vital Signs Last Recorded V/S: Last Vital Signs Temp 36.2 C 03/25/19 14:22 Pulse 79 03/25/19 14:22 Resp 16 03/25/19 14:22 BP 163/96 H 03/25/19 14:22 Pulse Ox 98 03/25/19 15:28 - Orders/Labs/Meds Labs: Laboratory Tests 03/25/19 03/25/19 Range/Units 15:15 15:15 Sodium 130 L (136-145) mEq/L Potassium 4.2 (3.5-5.1) mEq/L Chloride 93 L (98-107) mEq/L Carbon Dioxide 30 (21-32) mEq/L Anion Gap 11.2 (5-15) BUN 6 L (7-18) mg/dL Creatinine 0.8 (0.7-1.3) mg/dL Est Cr Clr Drug Dosing 83.79 mL/min Estimated GFR (MDRD) > 60 (>60) mL/min BUN/Creatinine Ratio 7.5 L (14-18) Glucose 94 (80-115) mg/dL Serum Osmolality 262 L (280-300) mosm/kg Calcium 9.4 (8.5-10.1) mg/dL Meds: Medications Discontinued Medications Generic Name Dose Route Start Last Admin Trade Name Freq PRN Reason Stop Dose Admin Hydromorphone HCl 1 mg 03/25/19 14:45 03/25/19 15:04 Dilaudid IVPUSH 03/25/19 14:46 1 mg ONETIME ONE Administration Sodium Chloride 500 mls @ 50 mls/hr 03/25/19 14:45 03/25/19 15:10 Sodium Chloride 3% IV 50 mls/hr ASDIRECTED LUCIAN Administration Sodium Chloride 1,000 mls @ 500 mls/hr 03/25/19 14:45 03/25/19 15:11 Normal Saline IV 500 mls/hr ASDIRECTED LUCIAN Administration Promethazine HCl 25 mg/ Sodium 51 mls @ 100 mls/hr 03/25/19 14:48 03/25/19 15 :19 Chloride IV 03/25/19 15:18 100 mls/hr ONETIME ONE Administration Lorazepam 2 mg 03/25/19 14:44 03/25/19 15:07 Ativan IVPUSH 03/25/19 14:45 2 mg ONETIME ONE Administration - Radiology Interpretation Free Text/Narrative:: 68-year-old male presents to the ED with generalized complaints of burning all over a somatic depression symptoms which are chronic for him. Labeled as chronic pain syndrome with fibromyalgia syndrome. He has a history of chronic and recurrent hyponatremia due to drinking excessive amounts of water and causing a dilutional hyponatremia. Serum sodium reported to be 124 today. He reports chronic pain everywhere in his body with a burning sensation. He hasn't been sleeping well and he's not eating well and by history is lost 10 pounds of weight in the last 6 weeks. History of chronic constipation and uses MiraLAX twice daily to keep his bowels regular. Primarily will need control of his anxiety and pain and transient correction of his hyponatremia. I'm going to start him on normal saline at 500 mils per hour and 3% hypertonic saline 50 mils per hour 2 hours. This should raise his serum sodium level by 6-8 mEq. We 'll give Ativan 2 mg IV now and Dilaudid 1 mg IV for pain relief. Patient has high tolerance to narcotics as he is on a fentanyl patch at all times and uses diazepam up to 3 times daily. Also given Phenergan 25 mg IV. - Re-Assessments/Exams Free Text/Narrative Re-Assessment/Exam: 03/25/19 15:53 Serum sodium here is 130. Potassium is 4.2 with a chloride of 93. Bicarbonate was 30 with an anion gap of 11.2. BUN is 6 with a creatinine of 0.8. Serum osmolality is 262. Serum calcium is 9.4. 03/25/19 17:02 Keshawn has been sleeping soundly for the last hour and a half. He has about 500 more mils of normal saline to infuse. 03/25/19 18:20 Keshawn has completed 100 mils of 3% saline with 1 L of normal saline. He remains fast asleep and will be discharged to home when he awakens or is more arousable. 03/25/19 19:00: Patient has suddenly aroused from his sleep and reports feeling much improved. is here and he will therefore be discharged to home in her care. I'll clinic next week for serum sodium level. Departure - Departure Time of Disposition: 19:00 Disposition: Home, Self-Care 01 Condition: Fair Clinical Impression: Hyponatremia with decreased serum osmolality, Chronic pain syndrome, Burning pain, Fibromyalgia affecting multiple sites - Discharge Information *PRESCRIPTION DRUG MONITORING PROGRAM REVIEWED*: Not Applicable *COPY OF PRESCRIPTION DRUG MONITORING REPORT IN PATIENT MARS: Not Applicable Instructions: Hyponatremia, [id number], Chronic Pain, Adult, Restless Legs Syndrome Referrals: Christofer Macdonald MD [Primary Care Provider] - Forms: ED Department Discharge Additional Instructions: Evaluation in the emergency room today in regards to identification of low serum sodium level at the clinic today by Dr. Macdonald. Sodium level was found to be 124. This is not necessarily unusual for you as you had very low blood sodium levels many times in the past. However it is felt that at this level it makes you have weakness, nausea, exacerbation of fibromyalgia pain syndrome. Your hyponatremic was treated today with intravenous hypertonic saline to improve your serum sodium levels. Pain was controlled with Dilaudid and Ativan to allow you to have some rest as you've been missing a good deal of sleep due to pain syndrome. At this time continue all medications prescribed by Dr. Macdonald. He will need a follow-up serum sodium level done in 65-7 days time. Again must not drink as much water as you are drinking and must use fluids such as Gatorade or Powerade or other juices such as orange juice, grape juice, apple juice etc.
[2019-03-25] MEDS ORDERED: LORazepam 2 MG/ML SDV IVPUSH ONE (14:44)
[2019-03-25] MEDS ORDERED: Sodium Chloride 3% 500 ML IV SCH (14:45)
[2019-03-25] MEDS ORDERED: HYDROmorphone 1 MG/ML Syringe IVPUSH ONE (14:45)
[2019-03-25] MEDS ORDERED: Sodium Chloride 0.9% 1,000 ML IV SCH (14:45)
[2019-03-25] MEDS ORDERED: Promethazine 25 MG in Sodium Chloride 0.9% 50 ML IV ONE (14:48)
== END 2019-03-25 19:17 | disposition home or self-care (01) ==
LOC: JD.ED 14:12
DX: E87.1 Hypo-osmolality and hyponatremia (principal); G89.4 Chronic pain syndrome; M79.7 Fibromyalgia; I10 Essential (primary) hypertension; M19.90 Unspecified osteoarthritis, unspecified site; F41.9 Anxiety disorder, unspecified; F32.9 Major depressive disorder, single episode, unspecified; Z88.1 Allergy status to other antibiotic agents; Z88.5 Allergy status to narcotic agent; Z88.2 Allergy status to sulfonamides; Z88.8 Allergy status to other drugs, medicaments and biological substances; Z79.82 Long term (current) use of aspirin; Z79.899 Other long term (current) drug therapy; Z98.890 Other specified postprocedural states
CPT/HCPCS: 36415; 80048; 83930; 96365; 96366; 96368; 96375; 99284; J1170; J2060; J2550; J7040; J7050